=== PATIENT | female | born 1970 | race Hispanic/Latino ===

== ENCOUNTER 2019-04-30 12:45 | Inpatient (IN) | payer OTHER ==
[~2019-04-30] VITALS: Ht 157.5 cm; Wt 51.6 kg
[2019-04-30 13:39] LABS: BASOPHILS % (AUTO) 0.7 % (0.0-5.0); EOSINOPHILS % (AUTO) 2.1 % (0.0-8.0); HEMATOCRIT 24.8 % (36-48); LYMPHOCYTES % (AUTO) 10.6 % (21.0-51.0); MEAN CORPUSCULAR HGB CONC 31.9 g/dL (32.0-36.0); MEAN CORPUSCULAR VOLUME 94.3 fL (79-99); MONOCYTES % (AUTO) 11.7 % (3.0-13.0); NEUTROPHILS % (AUTO) 74.2 % (40.0-77.0); PLATELET COUNT (AUTO) 102 K/uL (130-400); RED BLOOD CELL COUNT(AUTO) 2.63 MIL/uL (4.00-5.50); RED CELL DISTRIBUTION WIDTH 15.5 % (11.0-15.5); WHITE BLOOD COUNT (AUTO) 4.3 K/uL (4.8-10.8)
[2019-04-30 13:49] LABS: PROTHROMBIN TIME 10.5 SEC (9.6-11.6)
[2019-04-30 13:59] LABS: ALBUMIN 3.3 g/dL (3.5-5.0); BILIRUBIN,DIRECT 0.1 mg/dL (0.0-0.3); BILIRUBIN,TOTAL 0.5 mg/dL (0.2-1.0); TOTAL PROTEIN, SERUM 7.3 g/dL (6.0-8.3)
[2019-04-30 14:01] LABS: CREATININE 17.4 mg/dL (0.5-1.5); POTASSIUM 8.1 mmol/L (3.5-5.1)
[2019-04-30] MEDS ORDERED: ALBUTEROL SULFATE 0.083% 2.5 MG/3 ML INH IH ONE (14:33)
[2019-04-30] MEDS ORDERED: CALCIUM GLUCONATE 1 GM/10 ML VIAL IV ONE (14:59)
[2019-04-30] MEDS ORDERED: INSULIN HUMULIN R 100 UNIT/ML 3ML ONE (15:00)
[2019-04-30] MEDS ORDERED: SODIUM BICARB 50MEQ 50ML VIAL ONE (15:00)
[2019-04-30] MEDS ORDERED: SODIUM CHLORIDE 0.9% 50 ML IV ONE (15:01)
[2019-04-30] MEDS ORDERED: HYDRALAZINE HCL 20 MG/ML VIAL IV PRN (15:15)
[2019-04-30] MEDS ORDERED: ACETAMINOPHEN 325 MG TAB PO PRN ×2 (15:15→18:00)
[2019-04-30] MEDS ORDERED: NITROGLYCERIN 0.4 MG SL TAB SL PRN (18:00)
[2019-04-30] MEDS ORDERED: HEPARIN SODIUM 5000UNIT/ML 1ML VIAL IJ PRN (18:00)
[2019-04-30] MEDS ORDERED: 0.9% SODIUM CHLORIDE 1000 ML IV BAG IV PRN (18:00)
[2019-04-30] MEDS ORDERED: SODIUM CHLORIDE 0.9% 1000ML 1,000 ML IV PRN (18:00)
[2019-04-30] MEDS ORDERED: HYDR50 PO (18:52)
[2019-04-30] MEDS ORDERED: AMLO10TA7 PO (18:52)
[2019-04-30] MEDS ORDERED: METO25 PO (18:52)
[2019-04-30] MEDS ORDERED: PRED5DRO17 OU (18:52)
[2019-04-30 18:53] LABS: HEMOGLOBIN A1C 6.3 % (4.0-6.0)
[2019-04-30 19:20] VITALS: BP 168/75
[2019-04-30 19:40] LABS: ALBUMIN 3.2 g/dL (3.5-5.0)
--- NOTE | 2019-04-30 20:27 | NUR ---
POST-DIALYSIS PT COMPLETED DIALYSIS AT THIS TIME TO LEFT UPPER ARM SITE, REPORT RECEIVED FROM BRAVO GRANTS DIRECTOR, 2.5L WERE REMOVED. LEFT UPPER ARM SITE CLEAN, 4X4 GAUZE DRY AND INTACT. PT IS AWAKE, BUT DROWSY. PT C/O FEELING DIZZY AND NAUSEOUS, PT THREW UP ABOUT 20ML LIGHT BROWNISH EMESIS. BP OBTAINED 136/87 HR 94 RESPIRATIONS 21, BLOOD GLUCOSE 85. PT STATES NOT FEELING HUNGRY AT THIS TIME. WILL CONTINUE TO MONITOR PT. Addendum: 04/30/19 at 2133 by ZA NAPIER RN Amended: Links added.
[2019-04-30 20:47] LABS: % IRON SATURATION 97.7 % (22-44)
[2019-04-30] MEDS: FAMOTIDINE 20MG TAB 20 MG TAB PO SCH (21:00)
[2019-04-30 21:19] VITALS: BP 136/87
[2019-04-30 23:14] VITALS: BP 167/80
[2019-05-01 04:06] VITALS: BP 166/82
[2019-05-01 05:55] LABS: BASOPHILS % (AUTO) 0.5 % (0.0-5.0); EOSINOPHILS % (AUTO) 1.8 % (0.0-8.0); HEMATOCRIT 25.2 % (36-48); LYMPHOCYTES % (AUTO) 9.3 % (21.0-51.0); MEAN CORPUSCULAR HGB CONC 32.1 g/dL (32.0-36.0); MEAN CORPUSCULAR VOLUME 93.3 fL (79-99); MONOCYTES % (AUTO) 10.8 % (3.0-13.0); NEUTROPHILS % (AUTO) 77.1 % (40.0-77.0); PLATELET COUNT (AUTO) 98 K/uL (130-400); RED CELL DISTRIBUTION WIDTH 15.5 % (11.0-15.5)
[2019-05-01 06:12] LABS: POTASSIUM 4.8 mmol/L (3.5-5.1)
[2019-05-01 06:13] LABS: CREATININE 8.6 mg/dL (0.5-1.5)
[2019-05-01 08:00] VITALS: BP 195/99
[2019-05-01] MEDS ORDERED: SODIUM CHLORIDE 0.9% 1000ML 1,000 ML IV PRN (08:45)
[2019-05-01] MEDS ORDERED: 0.9% SODIUM CHLORIDE 1000 ML IV BAG IV PRN (08:45)
[2019-05-01] MEDS ORDERED: NITROGLYCERIN 0.4 MG SL TAB SL PRN (08:45)
[2019-05-01] MEDS ORDERED: ACETAMINOPHEN 325 MG TAB PO PRN (08:45)
[2019-05-01] MEDS ORDERED: LIDOCAINE HCL-MPF 1% 2ML VIAL IJ PRN (08:45)
[2019-05-01] MEDS ORDERED: HEPARIN SODIUM 5000UNIT/ML 1ML VIAL IJ PRN ×2 (08:45)
[2019-05-01] MEDS ORDERED: PHARMACY COMMUNICATION MISC SCH (09:00)
[2019-05-01 12:00] VITALS: BP 189/84
[2019-05-01] MEDS ORDERED: EPOETIN ALFA 10,000 UNIT/ML VIAL SQ SCH (13:30)
[2019-05-01] MEDS: FAMOTIDINE 20MG TAB 20 MG TAB PO SCH (14:54)
--- NOTE | 2019-05-01 16:00 | NUR ---
D/C PLAN CM spoke to pt regarding d/c planning. Pt is ind. with ADL's. States son assists with transportation as needed. States she is in process of reapplying for benefits that cover HD. Currently she is reporting to emergency room for HD tx. CM provided community resources packet. Pt remains high risk for readmissions due to uninsured status. Plan to home. CM to f/u. Addendum: 05/01/19 at 1915 by JAVIER KWAN CM Amended: Links added.
[2019-05-01 17:15] VITALS: BP 164/76
== END 2019-05-01 19:17 | disposition home or self-care (01) | DRG 682 ==
LOC: EDH 12:45 → EDHIP 12:46 → OBSVTOIN 12:46 → UNDOADMOB 15:10 → EDHIP 15:10 → 4CH 17:26
PROVIDERS: ADMIT Internal Medicine; ATTEND Internal Medicine
PROC: 5A1D70Z Performance of Urinary Filtration, Intermittent, Less than 6 Hours Per Day (ICD-10-PCS; principal; 2019-04-30)
PROC: 5A1D70Z Performance of Urinary Filtration, Intermittent, Less than 6 Hours Per Day (ICD-10-PCS; 2019-05-01)
DX: I12.0 Hypertensive chronic kidney disease with stage 5 chronic kidney disease or end stage renal disease (principal); N18.6 End stage renal disease; D63.8 Anemia in other chronic diseases classified elsewhere; E87.5 Hyperkalemia; E11.22 Type 2 diabetes mellitus with diabetic chronic kidney disease; W18.30XA Fall on same level, unspecified, initial encounter; Y92.009 Unspecified place in unspecified non-institutional (private) residence as the place of occurrence of the external cause; Z99.2 Dependence on renal dialysis; Y93.89 Activity, other specified; Y99.8 Other external cause status
CPT/HCPCS: 36415; 71045; 80048; 80061; 80076; 82040; 82550; 82728; 82948; 83036; 83540; 83550; 84484; 85025; 85610; 85730; 86701; 86704; 86706; 87340; 87390; 87520; 90935; 93005; 94640; 99291; G0378; J0610; J0885; J1644; J1815; J3490

== ENCOUNTER 2019-05-08 09:58 | Inpatient (IN) | payer OTHER ==
[~2019-05-08] VITALS: Ht 157.5 cm; Wt 64.3 kg
[~2019-05-08 09:58] MED LIST: AMLO10TA7 PO; HYDR50 PO; METO25 PO; PRED5DRO17 OU
[2019-05-08] MEDS ORDERED: ASPIRIN 81MG TAB.CHEW ONE (10:14)
[2019-05-08 10:27] LABS: BASOPHILS % (AUTO) 0.3 % (0.0-5.0); EOSINOPHILS % (AUTO) 2.9 % (0.0-8.0); HEMATOCRIT 22.1 % (36-48); LYMPHOCYTES % (AUTO) 7.6 % (21.0-51.0); MEAN CORPUSCULAR HEMOGLOBIN 29.9 pg (27.0-33.0); MEAN CORPUSCULAR HGB CONC 31.7 g/dL (32.0-36.0); MEAN CORPUSCULAR VOLUME 94.4 fL (79-99); MONOCYTES % (AUTO) 8.6 % (3.0-13.0); PLATELET COUNT (AUTO) 139 K/uL (130-400); RED BLOOD CELL COUNT(AUTO) 2.34 MIL/uL (4.00-5.50); RED CELL DISTRIBUTION WIDTH 15.3 % (11.0-15.5); WHITE BLOOD COUNT (AUTO) 6.3 K/uL (4.8-10.8)
[2019-05-08 10:32] LABS: INR 1.06 (0.85-1.15); PARTIAL THROMBOPLASTIN TIME 34.8 SEC (26.3-35.5); PROTHROMBIN TIME 11.1 SEC (9.6-11.6)
[2019-05-08 10:35] LABS: BILIRUBIN,TOTAL 0.5 mg/dL (0.2-1.0); POTASSIUM 5.8 mmol/L (3.5-5.1); TOTAL PROTEIN, SERUM 7.1 g/dL (6.0-8.3)
[2019-05-08 10:46] LABS: CREATININE 15.4 mg/dL (0.5-1.5)
[2019-05-08] MEDS ORDERED: ONDANSETRON HCL 4 MG/2 ML VIAL IV PRN (13:00)
[2019-05-08] MEDS ORDERED: MORPHINE SULFATE 2 MG/ML 1ML SYG IV PRN (13:00)
[2019-05-08] MEDS ORDERED: HYDRALAZINE HCL 20 MG/ML VIAL IV PRN (13:00)
[2019-05-08] MEDS ORDERED: ACETAMINOPHEN 325 MG TAB PO PRN ×2 (13:00)
[2019-05-08] MEDS ORDERED: SODIUM CHLORIDE 0.9% 1000ML 1,000 ML IV ONE (13:43)
[2019-05-08] MEDS ORDERED: ACETAMINOPHEN 325 MG TAB ONE (14:26)
--- NOTE | 2019-05-08 17:30 | NUR ---
low HH spoke with salad maker regarding low HH. stated that the patient is to NOT have a blood transfusion unless it is with HD. explained that HD was done earlier today in the emergency room prior to arrival on floor. stated do not transfuse blood product until Friday, day of scheduled HD.
[2019-05-08 17:33] VITALS: BP 179/72
[2019-05-08 19:16] VITALS: BP 159/73
[2019-05-08] MEDS: METOPROLOL TARTRATE 25 MG TAB PO SCH (20:38)
[2019-05-08 23:22] VITALS: BP 165/67
[2019-05-09 02:08] LABS: BASOPHILS % (AUTO) 0.3 % (0.0-5.0); EOSINOPHILS % (AUTO) 1.8 % (0.0-8.0); HEMATOCRIT 22.4 % (36-48); LYMPHOCYTES % (AUTO) 3.9 % (21.0-51.0); MEAN CORPUSCULAR HEMOGLOBIN 29.9 pg (27.0-33.0); MEAN CORPUSCULAR HGB CONC 32.1 g/dL (32.0-36.0); MEAN CORPUSCULAR VOLUME 92.9 fL (79-99); MONOCYTES % (AUTO) 6.8 % (3.0-13.0); NEUTROPHILS % (AUTO) 86.7 % (40.0-77.0); NUCLEATED RED BLOOD CELLS 0.3 % (0.0-0.19); PLATELET COUNT (AUTO) 143 K/uL (130-400); RED BLOOD CELL COUNT(AUTO) 2.41 MIL/uL (4.00-5.50); RED CELL DISTRIBUTION WIDTH 15.3 % (11.0-15.5); WHITE BLOOD COUNT (AUTO) 6.2 K/uL (4.8-10.8)
[2019-05-09 02:31] LABS: ALBUMIN 2.7 g/dL (3.5-5.0); BILIRUBIN,TOTAL 0.5 mg/dL (0.2-1.0); POTASSIUM 4.2 mmol/L (3.5-5.1); TOTAL PROTEIN, SERUM 6.9 g/dL (6.0-8.3)
[2019-05-09 02:35] LABS: CREATININE 7.9 mg/dL (0.5-1.5)
[2019-05-09 03:53] VITALS: BP 187/90
--- NOTE | 2019-05-09 04:07 | NUR ---
b/p b/p 187/90, hydralazine 10 mg ivp given
--- NOTE | 2019-05-09 05:00 | NUR ---
med effect b/p 155/78 , no sob, no c/o pain at this time
[2019-05-09 08:06] VITALS: BP 163/65
[2019-05-09] MEDS: METOPROLOL TARTRATE 25 MG TAB PO SCH ×2 (08:53→19:40)
[2019-05-09] MEDS: AMLODIPINE BESYLATE 5 MG TAB PO SCH (08:53)
[2019-05-09] MEDS: FAMOTIDINE/PF 20 MG/2 ML VIAL IV SCH (09:00)
[2019-05-09 11:19] VITALS: BP 159/68
[2019-05-09] MEDS ORDERED: COMPOUND IV MISC 1 EACH IVSOLN MISC PRN (12:15)
[2019-05-09] MEDS ORDERED: EPOETIN ALFA 10,000 UNIT/ML VIAL SQ SCH (12:15)
--- NOTE | 2019-05-09 13:12 | NUR ---
INITIAL Patient lives with spouse. Emergency contacts are sons, Francisco Wu, [phone] and Roque Scruggs, [phone]. Patient has no home services or DME. She is able to complete ADL's independently but does not drive. PCP is Dr. Mcgill. Pharmacy is [facility] located on [address] [facility] [address] in [place]. DCP is home Patient is on dialysis and states she used to go [facility] have [facility]. Patient states she stopped going because her Legal Resident card and she has not renewed it because she does not have the money to do so at this time. Patient reports that she has been coming to hospital ER to have dialysis done. Patient states once her daughter receives her income tax, patient will attempt to renew her legal residency card. Patient was provided with community resources for post hospitalization follow up. Patient was also provided with Good RX card for prescriptions and educated on [facility] $4 medication program and [facility] $5 medication program. Patient is being assisted by [employer] for financial matters. Addendum: 05/09/19 at 1317 by ROSY CRAMER Amended: Links added.
[2019-05-09 16:18] VITALS: BP 149/61
[2019-05-09 19:44] VITALS: BP 143/66
[2019-05-09 22:54] VITALS: BP 152/65
[2019-05-10 03:05] VITALS: BP 151/68
[2019-05-10 07:58] VITALS: BP 112/39
[2019-05-10 08:42] LABS: HEMATOCRIT 21.5 % (36-48); MEAN CORPUSCULAR HEMOGLOBIN 29.6 pg (27.0-33.0); MEAN CORPUSCULAR HGB CONC 31.6 g/dL (32.0-36.0); MEAN CORPUSCULAR VOLUME 93.5 fL (79-99); PLATELET COUNT (AUTO) 141 K/uL (130-400); RED CELL DISTRIBUTION WIDTH 15.3 % (11.0-15.5)
[2019-05-10 08:54] LABS: POTASSIUM 4.5 mmol/L (3.5-5.1)
[2019-05-10] MEDS: METOPROLOL TARTRATE 25 MG TAB PO SCH (09:00)
[2019-05-10] MEDS: AMLODIPINE BESYLATE 5 MG TAB PO SCH (09:00)
[2019-05-10] MEDS: FAMOTIDINE/PF 20 MG/2 ML VIAL IV SCH (09:00)
[2019-05-10] MEDS ORDERED: IRON SUCROSE COMPLEX 100 MG in SODIUM CHLORIDE 0.9% 50 ML IV SCH (09:00)
[2019-05-10 11:42] VITALS: BP 154/70
[2019-05-10] MEDS ORDERED: SODIUM CHLORIDE 0.9% 500ML 500 ML IV ONE (12:40)
[2019-05-10] MEDS ORDERED: ACETAMINOPHEN 325 MG TAB PO PRN (12:45)
[2019-05-10] MEDS ORDERED: SODIUM CHLORIDE 0.9% 1000ML 1,000 ML IV PRN (12:45)
[2019-05-10] MEDS ORDERED: NITROGLYCERIN 0.4 MG SL TAB SL PRN (12:45)
[2019-05-10] MEDS ORDERED: 0.9% SODIUM CHLORIDE 1000 ML IV BAG IV PRN (12:45)
[2019-05-10 15:22] VITALS: BP 160/66
[2019-05-10 16:00] VITALS: BP 191/78
--- NOTE | 2019-05-10 17:51 | NUR ---
DISCHARGE PATIENT GIVEN DISCHARGE INSTRUCTIONS VIA TEACH BACK. 22G PIV TO RH DISCONTINUED, TIP INTACT. PATIENT RECEIVED 1 UNIT OF PRBC'S DURING DIALYSIS. PATIENT TO FOLLOW UP WITH DR. CROWLEY IN 1 WEEK. PATIENT INSTRUCTED TO SEEK EMERGENCY MEDICAL SERVICE FOR HEMODIALYSIS TREATMENT. PATIENT STABLE AT THIS TIME. PATIENT WHEELED TO LOBBY BY JUSTA COOPER.
== END 2019-05-10 17:40 | disposition home or self-care (01) | DRG 640 ==
LOC: EDH 09:58 → OBSVTOIN 09:59 → EDHIP 09:59 → 4CH 17:11
PROVIDERS: ADMIT Family Medicine; ATTEND Family Medicine
PROC: 5A1D70Z Performance of Urinary Filtration, Intermittent, Less than 6 Hours Per Day (ICD-10-PCS; principal; 2019-05-08)
PROC: 5A1D70Z Performance of Urinary Filtration, Intermittent, Less than 6 Hours Per Day (ICD-10-PCS; 2019-05-10)
PROC: 30233N1 Transfusion of Nonautologous Red Blood Cells into Peripheral Vein, Percutaneous Approach (ICD-10-PCS; 2019-05-10)
DX: E87.70 Fluid overload, unspecified (principal); N18.6 End stage renal disease; I12.0 Hypertensive chronic kidney disease with stage 5 chronic kidney disease or end stage renal disease; E11.22 Type 2 diabetes mellitus with diabetic chronic kidney disease; M94.0 Chondrocostal junction syndrome [Tietze]; D63.8 Anemia in other chronic diseases classified elsewhere; Z99.2 Dependence on renal dialysis; E87.5 Hyperkalemia
CPT/HCPCS: 36415; 36430; 71045; 80048; 80053; 82550; 82948; 84484; 85025; 85027; 85610; 85730; 86706; 86717; 86850; 86900; 86901; 86922; 87340; 87350; 87804; 90935; 93005; 99291; G0378; J0360; J0885; J1756; J3490; J7030; J7040; P9016

== ENCOUNTER 2019-05-14 17:32 | Inpatient (IN) | payer OTHER ==
[~2019-05-14] VITALS: Ht 157.5 cm; Wt 56.6 kg
[~2019-05-14 17:32] MED LIST changes: +ETOMIDATE 2 MG/ML 10 ML VIAL IVP ONE; -HYDR50 PO; -PRED5DRO17 OU; +ROCURONIUM BROMIDE 10MG/1ML 5ML VL IV ONE
[2019-05-14 18:10] LABS: BASOPHILS % (AUTO) 0.1 % (0.0-5.0); EOSINOPHILS % (AUTO) 4.4 % (0.0-8.0); HEMATOCRIT 23.7 % (36-48); LYMPHOCYTES % (AUTO) 9.5 % (21.0-51.0); MEAN CORPUSCULAR HEMOGLOBIN 29.3 pg (27.0-33.0); MEAN CORPUSCULAR HGB CONC 31.6 g/dL (32.0-36.0); MEAN CORPUSCULAR VOLUME 92.6 fL (79-99); MONOCYTES % (AUTO) 9.5 % (3.0-13.0); NEUTROPHILS % (AUTO) 76.1 % (40.0-77.0); NUCLEATED RED BLOOD CELLS 0.3 % (0.0-0.19); PLATELET COUNT (AUTO) 131 K/uL (130-400); RED BLOOD CELL COUNT(AUTO) 2.56 MIL/uL (4.00-5.50); RED CELL DISTRIBUTION WIDTH 15.7 % (11.0-15.5); WHITE BLOOD COUNT (AUTO) 6.8 K/uL (4.8-10.8)
[2019-05-14 18:27] LABS: INR 1.04 (0.85-1.15); PARTIAL THROMBOPLASTIN TIME 33.3 SEC (26.3-35.5); PROTHROMBIN TIME 10.9 SEC (9.6-11.6)
[2019-05-14] MEDS ORDERED: ZOSYN 3.375GM+NS 50ML 50 ML IV ONE (18:34)
[2019-05-14 18:40] LABS: ALBUMIN 2.7 g/dL (3.5-5.0); BILIRUBIN,TOTAL 0.5 mg/dL (0.2-1.0); POTASSIUM 5.1 mmol/L (3.5-5.1); TOTAL PROTEIN, SERUM 7.2 g/dL (6.0-8.3)
[2019-05-14] MEDS ORDERED: IPRATROPIUM/ALBUTEROL SULFATE 3 ML SOLUTION IH ONE (18:40)
[2019-05-14] MEDS ORDERED: VANCOMYCIN 1GM+NS 250ML 250 ML IV ONE (19:53)
[2019-05-14] MEDS: INSULIN HUMULIN R 100 UNIT/ML 3ML SQ SCH (22:15)
[2019-05-14] MEDS ORDERED: GLUCAGON 1MG KIT 1 MG ML IM PRN (22:15)
[2019-05-14] MEDS ORDERED: ACETAMINOPHEN 325 MG TAB PO PRN ×2 (22:45)
[2019-05-14] MEDS ORDERED: DiphenhydrAMINE HCL 50 MG/ML VIAL IV PRN (22:45)
[2019-05-14] MEDS ORDERED: NITROGLYCERIN 0.4 MG SL TAB SL PRN (22:45)
[2019-05-14 22:48] VITALS: BP 157/60
[2019-05-14] MEDS: CEFTRIAXONE SODIUM 1 GM IV SCH (23:14)
[2019-05-14] MEDS: ACETAMINOPHEN-CODEINE 300/30MG TAB PO PRN (23:14)
[2019-05-14] MEDS: AZITHROMYCIN 500MG+NS 250ML 250 ML IV SCH (23:14)
[2019-05-14] MEDS: ONDANSETRON HCL 4 MG/2 ML VIAL IV PRN (23:22)
[2019-05-14 23:24] LABS: MAGNESIUM 2.2 mg/dL (1.80-2.40); PHOSPHORUS 9.7 mg/dL (2.5-4.9)
[2019-05-15] MEDS ORDERED: IPRATROPIUM/ALBUTEROL SULFATE 3 ML SOLUTION IH ONE (01:24)
[2019-05-15] MEDS ORDERED: SODIUM CHLORIDE 3% FOR INHALATION 4 ML/AMP VIAL.NEB IH ONE ×2 (01:33→06:30)
[2019-05-15 04:00] VITALS: BP 158/58
[2019-05-15] MEDS: INSULIN HUMULIN R 100 UNIT/ML 3ML SQ SCH ×4 (05:48→20:32)
[2019-05-15] MEDS: ACETAMINOPHEN-CODEINE 300/30MG TAB PO PRN ×2 (05:54→20:01)
[2019-05-15 05:59] LABS: HEMATOCRIT 23.8 % (36-48); MEAN CORPUSCULAR HEMOGLOBIN 29.4 pg (27.0-33.0); MEAN CORPUSCULAR HGB CONC 31.5 g/dL (32.0-36.0); MEAN CORPUSCULAR VOLUME 93.3 fL (79-99); NUCLEATED RED BLOOD CELLS 0.3 % (0.0-0.19); PLATELET COUNT (AUTO) 133 K/uL (130-400); RED BLOOD CELL COUNT(AUTO) 2.55 MIL/uL (4.00-5.50); RED CELL DISTRIBUTION WIDTH 15.6 % (11.0-15.5); WHITE BLOOD COUNT (AUTO) 7.3 K/uL (4.8-10.8)
[2019-05-15 06:21] LABS: ALBUMIN 2.6 g/dL (3.5-5.0); BILIRUBIN,TOTAL 0.5 mg/dL (0.2-1.0); MAGNESIUM 2.2 mg/dL (1.80-2.40); PHOSPHORUS 10.3 mg/dL (2.5-4.9); POTASSIUM 5.4 mmol/L (3.5-5.1); TOTAL PROTEIN, SERUM 7.2 g/dL (6.0-8.3)
--- NOTE | 2019-05-15 06:24 | NUR ---
Nursing Notes-Dialysis Spoke with dialysis nurse on-call. Nancy is aware pt to be dialyzed today
[2019-05-15 06:27] LABS: CREATININE 11.4 mg/dL (0.5-1.5)
[2019-05-15] MEDS: IPRATROPIUM/ALBUTEROL SULFATE 3 ML SOLUTION IH SCH ×5 (07:15→21:38)
[2019-05-15 08:00] VITALS: BP 141/65
[2019-05-15 10:33] LABS: EOSINOPHILS % (MANUAL) 2 % (1-6); LYMPHOCYTES % (MANUAL) 14 % (22-44); MAN.DIFF COMMENT-IMPRESSION MANUAL DIFFERENTIAL; MONOCYTES % (MANUAL) 3 % (2-9); PLATELET MORPHOLOGY COMMENT ADEQUATE; SEGMENTED NEUTROPHILS % 81 % (40-70)
[2019-05-15 12:00] VITALS: BP 162/73
--- NOTE | 2019-05-15 12:08 | NUR ---
notified dr. whiting that the heart of patient is sinus hitesh 30s to 40s and not sustaining.
[2019-05-15 16:00] VITALS: BP 151/67
[2019-05-15] MEDS: FAMOTIDINE 20MG TAB 20 MG TAB PO SCH (16:35)
[2019-05-15] MEDS: HEPARIN SODIUM 5000UNIT/ML 1ML VIAL SQ SCH ×2 (16:36→19:56)
--- NOTE | 2019-05-15 17:15 | NUR ---
INITIAL: Met with pt this afternoon to discuss dcp. Pt mentions that she lives w her spouse. Prior to admission she was independent w ambulation and ADLs. She does not own any DME or receive services. Per pt he son provides transportation where needed. Pt mentions that she feels safe and comfortable to return home at ut. She mentions that she does not get HD as an outpatient and only receives when comes to ER. CM to continue to follow and wait for Md recommendations. Addendum: 05/15/19 at 1717 by DIGNA VARGAS CM Amended: Links added. Addendum: 05/15/19 at 1720 by DIGNA VARGAS low income packet provided to pt.
[2019-05-15 20:00] VITALS: BP 159/85
[2019-05-15] MEDS: AZITHROMYCIN 500MG+NS 250ML 250 ML IV SCH (20:58)
[2019-05-15] MEDS: CEFTRIAXONE SODIUM 1 GM IV SCH (20:58)
[2019-05-16] VITALS: BP 152/57
[2019-05-16] MEDS: IPRATROPIUM/ALBUTEROL SULFATE 3 ML SOLUTION IH SCH ×6 (01:22→21:07)
[2019-05-16] MEDS: ACETAMINOPHEN-CODEINE 300/30MG TAB PO PRN ×2 (02:12→18:15)
[2019-05-16] MEDS ORDERED: SODIUM CHLORIDE 3% FOR INHALATION 4 ML/AMP VIAL.NEB IH ONE (02:18)
[2019-05-16] MEDS: DEXTROSE 50%-WATER 50 ML DISP.SYRIN IV PRN (03:40)
[2019-05-16 04:00] VITALS: BP 132/55
--- NOTE | 2019-05-16 04:14 | NUR ---
Nursing Note-Blood sugar Blood sugar dropped to 25. Dextrose and food/drink given to pt. Lab was called and stated they would do the check with the morning labs. upon recheck BS is 143
[2019-05-16 04:41] LABS: BASOPHILS % (AUTO) 0.2 % (0.0-5.0); EOSINOPHILS % (AUTO) 2.1 % (0.0-8.0); HEMATOCRIT 23.7 % (36-48); LYMPHOCYTES % (AUTO) 5.8 % (21.0-51.0); MEAN CORPUSCULAR HEMOGLOBIN 29.4 pg (27.0-33.0); MEAN CORPUSCULAR HGB CONC 31.2 g/dL (32.0-36.0); MONOCYTES % (AUTO) 10.5 % (3.0-13.0); NEUTROPHILS % (AUTO) 80.8 % (40.0-77.0); PLATELET COUNT (AUTO) 140 K/uL (130-400); RED BLOOD CELL COUNT(AUTO) 2.52 MIL/uL (4.00-5.50); RED CELL DISTRIBUTION WIDTH 15.6 % (11.0-15.5); WHITE BLOOD COUNT (AUTO) 8.1 K/uL (4.8-10.8)
[2019-05-16 04:49] LABS: CREATININE 6.4 mg/dL (0.5-1.5); MAGNESIUM 2.1 mg/dL (1.80-2.40)
[2019-05-16] MEDS: INSULIN HUMULIN R 100 UNIT/ML 3ML SQ SCH ×4 (06:07→21:00)
[2019-05-16 08:00] VITALS: BP 142/65
[2019-05-16] MEDS ORDERED: VANCOMYCIN PROTOCOL PER PHARMACY IV SCH (09:00)
[2019-05-16] MEDS: ONDANSETRON HCL 4 MG/2 ML VIAL IV PRN ×2 (09:23→18:08)
[2019-05-16] MEDS: HEPARIN SODIUM 5000UNIT/ML 1ML VIAL SQ SCH ×3 (09:25→21:11)
[2019-05-16] MEDS: FAMOTIDINE 20MG TAB 20 MG TAB PO SCH (09:25)
[2019-05-16 12:00] VITALS: BP 145/72
[2019-05-16] MEDS: ZOSYN 3.375GM+NS 50ML 50 ML IV SCH ×2 (15:25→20:51)
[2019-05-16 16:00] VITALS: BP 149/56
[2019-05-16 20:00] VITALS: BP 146/64
[2019-05-16] MEDS ORDERED: VANCOMYCIN 500MG+NS 100ML 100 ML IV SCH (21:00)
[2019-05-16] MEDS: DOXYCYCLINE HYCLATE 100 MG TABLET PO SCH (21:10)
[2019-05-16] MEDS: AZITHROMYCIN 500MG+NS 250ML 250 ML IV SCH (22:17)
[2019-05-17] VITALS (40 sets, daily range): BP systolic 116–217; BP diastolic 43–89
[2019-05-17] MEDS: IPRATROPIUM/ALBUTEROL SULFATE 3 ML SOLUTION IH SCH ×6 (01:16→22:17)
[2019-05-17] MEDS: ONDANSETRON HCL 4 MG/2 ML VIAL IV PRN ×2 (02:34→07:06)
[2019-05-17] MEDS: INSULIN HUMULIN R 100 UNIT/ML 3ML SQ SCH ×4 (05:43→21:00)
[2019-05-17 07:32] LABS: BASOPHILS % (AUTO) 0.3 % (0.0-5.0); EOSINOPHILS % (AUTO) 4.8 % (0.0-8.0); HEMATOCRIT 23.8 % (36-48); LYMPHOCYTES % (AUTO) 6.5 % (21.0-51.0); MEAN CORPUSCULAR HEMOGLOBIN 29.1 pg (27.0-33.0); MEAN CORPUSCULAR HGB CONC 30.7 g/dL (32.0-36.0); MEAN CORPUSCULAR VOLUME 94.8 fL (79-99); MONOCYTES % (AUTO) 7.4 % (3.0-13.0); NEUTROPHILS % (AUTO) 80.3 % (40.0-77.0); PLATELET COUNT (AUTO) 150 K/uL (130-400); RED BLOOD CELL COUNT(AUTO) 2.51 MIL/uL (4.00-5.50); RED CELL DISTRIBUTION WIDTH 15.7 % (11.0-15.5); WHITE BLOOD COUNT (AUTO) 7.1 K/uL (4.8-10.8)
[2019-05-17 07:34] LABS: CREATININE 7.7 mg/dL (0.5-1.5)
--- NOTE | 2019-05-17 08:00 | NUR ---
TO O.R. VIA BED PORTABLE MONITORING, WITH Christa HERNANDEZ NURSES ALEJANDRO RESENDIZ, ANESTHESIOLOGIST, AND DR GODFRYE. SISTER, SON, AND FATHER STATED THEY WILL BE WAITING IN MAIN LOBBY. Addendum: 05/17/19 at 0810 by EILO DE DIOS RN RN DISREGARD NOTE; WRONG CHART
[2019-05-17] MEDS: FAMOTIDINE 20MG TAB 20 MG TAB PO SCH (09:00)
[2019-05-17] MEDS: DOXYCYCLINE HYCLATE 100 MG TABLET PO SCH ×2 (09:00→21:00)
--- NOTE | 2019-05-17 10:00 | NUR ---
TRANSFER TO [facility] Patient was transferred [facility] room # 218. Report was called to Weston Carlson RN at 0953. Patient had c/o nausea and subsequently went to restroom, while nurse was . Once there, a call Addendum: 05/18/19 at 2040 by NAIDA HAND RN RN Patient had c/o nausea and subsequently went to restroom, while nurse was getting AM medications and checking for nausea medications and antihypertensives. Once patient was in restroom, a natalie hitchcock was called and patient was found unresponsive in restroom. Patient had resuscitation work done and she was eventually intubated and transfered to higher level of care. Family was at bedside.
[2019-05-17] MEDS ORDERED: LABETALOL 20 MG/4 ML DISP.SYRIN IV ONE (10:20)
[2019-05-17] MEDS: HEPARIN SODIUM 5000UNIT/ML 1ML VIAL SQ SCH ×2 (11:20→21:17)
[2019-05-17] MEDS ORDERED: VANCOMYCIN 500MG+NS 100ML 100 ML IV SCH (12:00)
[2019-05-17 12:05] LABS: ABG BASE EXCESS 1.5 mmol/L (-2.0-3.0); ABG HCO3 27.3 mmol/L (21.0-28.0); ABG OXYGEN SATURATION 98.6 % (95.0-99.0); ABG PCO2 48 mmHg (32-45)
--- NOTE | 2019-05-17 14:40 | NUR ---
Ramin notified me patient has ST elevation on monitor patient had 12 lead ekg done at 1447 showing normal sinus rhythm
[2019-05-17] MEDS: ZOSYN 3.375GM+NS 50ML 50 ML IV SCH ×2 (14:52→21:18)
[2019-05-17 15:40] LABS: ABG BASE EXCESS 2.7 mmol/L (-2.0-3.0); ABG HCO3 27.9 mmol/L (21.0-28.0); ABG OXYGEN SATURATION 96.7 % (95.0-99.0); ABG PCO2 45 mmHg (32-45)
--- NOTE | 2019-05-17 18:57 | NUR ---
Placed patient back on AC mode due to RR BEING 9.5 on CPAP mode volume okay but RR to low placed he her on a back up rate to rest. Addendum: 05/17/19 at 1859 by SMOOTH COELLO RT Amended: Links added.
[2019-05-17] MEDS ORDERED: DEXMEDETOMIDINE HCL 400 MCG in SODIUM CHLORIDE 0.9% 100 ML IV SCH (19:00)
[2019-05-17] MEDS: FENTANYL CITRATE PF 50 MCG/1 ML 2ML VIAL IVP PRN ×2 (19:26→21:20)
[2019-05-17] MEDS ORDERED: SODIUM CHLORIDE 0.9% 250 ML IV ONE (21:26)
[2019-05-17] MEDS: DEXTROSE 50%-WATER 50 ML DISP.SYRIN IV PRN (22:23)
[2019-05-18] VITALS (73 sets, daily range): BP systolic 106–226; BP diastolic 48–91
[2019-05-18] MEDS ORDERED: PROPOFOL 1000 MG/100 ML 100 ML IV ONE (01:08)
[2019-05-18] MEDS ORDERED: FENTANYL CITRATE PF 0.05 MG/ML 1,000 MCG in SODIUM CHLORIDE 0.9% 100 ML IVPB SCH (01:15)
[2019-05-18] MEDS ORDERED: PROPOFOL 1000 MG/100 ML IV PRN (01:15)
[2019-05-18] MEDS: IPRATROPIUM/ALBUTEROL SULFATE 3 ML SOLUTION IH SCH ×6 (02:16→21:27)
[2019-05-18] MEDS ORDERED: PROPOFOL 1000 MG/100 ML 100 ML IV SCH (05:00)
[2019-05-18 05:49] LABS: MEAN CORPUSCULAR HEMOGLOBIN 29.4 pg (27.0-33.0); MEAN CORPUSCULAR HGB CONC 31.3 g/dL (32.0-36.0); MEAN CORPUSCULAR VOLUME 93.9 fL (79-99); PLATELET COUNT (AUTO) 153 K/uL (130-400); RED BLOOD CELL COUNT(AUTO) 2.45 MIL/uL (4.00-5.50); RED CELL DISTRIBUTION WIDTH 15.1 % (11.0-15.5); WHITE BLOOD COUNT (AUTO) 2.9 K/uL (4.8-10.8)
[2019-05-18 05:56] LABS: PHOSPHORUS 5.9 mg/dL (2.5-4.9); POTASSIUM 4.1 mmol/L (3.5-5.1)
[2019-05-18 06:11] LABS: BASOPHILS % (MANUAL) 3 % (0-2); EOSINOPHILS % (MANUAL) 9 % (1-6); LYMPHOCYTES % (MANUAL) 12 % (22-44); MAN.DIFF COMMENT-IMPRESSION MANUAL DIFFERENTIAL; MONOCYTES % (MANUAL) 7 % (2-9); PLATELET MORPHOLOGY COMMENT ADEQUATE; SEGMENTED NEUTROPHILS % 69 % (40-70)
[2019-05-18] MEDS: INSULIN HUMULIN R 100 UNIT/ML 3ML SQ SCH ×4 (06:34→21:00)
[2019-05-18] MEDS: DOXYCYCLINE HYCLATE 100 MG TABLET PO SCH ×2 (09:00→20:38)
[2019-05-18] MEDS: FAMOTIDINE 20MG TAB 20 MG TAB PO SCH (09:00)
[2019-05-18] MEDS: ZOSYN 3.375GM+NS 50ML 50 ML IV SCH ×2 (09:23→20:40)
[2019-05-18] MEDS: HEPARIN SODIUM 5000UNIT/ML 1ML VIAL SQ SCH ×2 (09:23→20:56)
--- NOTE | 2019-05-18 09:30 | NUR ---
SEDATION VACATION/WEANING PATIENT OFF SEDATION SINCE 0830 THIS MORNING AND PLACED ON CPAP MODE ON VENTILATOR 5/5 30% AT 0930; PATIENT TOLERATING WELL; PLAN IS TO POSSIBLY EXTUBATE AFTER HD TODAY
[2019-05-18] MEDS ORDERED: NICARDIPINE HCL 100 MG in DEXTROSE 5%-WATER 60 ML IV SCH (10:00)
[2019-05-18 14:22] LABS: ABG BASE EXCESS -1.5 mmol/L (-2.0-3.0); ABG HCO3 23.4 mmol/L (21.0-28.0); ABG OXYGEN SATURATION 97.8 % (95.0-99.0); ABG PCO2 40 mmHg (32-45)
--- NOTE | 2019-05-18 15:05 | NUR ---
PATIENT EXTUBATED RECENT ABG RESULTS READ TO DR GOMEZ VIA TELEPHONE. PATIENT EXTUBATED AT 1505 AND PLACED ON BIPAP. PATIENT RESTING COMFORTABLY IN BED WITH NO COMPLAINTS AT THIS TIME
--- NOTE | 2019-05-18 16:00 | NUR ---
PATIENT REFUSING TO EAT OR DRINK AT THIS TIME; STATES HER THROAT IS SOMEWHAT SORE AT THIS TIME AND PREFERS TO WAIT; BP WNL ON CARDENE DRIP AT 2.5 MG/HR. LABETALOL TO BE GIVEN TONIGHT AT 2100 ORDERED
[2019-05-18] MEDS ORDERED: LABETALOL HCL 200 MG TABLET PO SCH (21:00)
[2019-05-19] VITALS (36 sets, daily range): BP systolic 108–173; BP diastolic 44–104
[2019-05-19] MEDS: IPRATROPIUM/ALBUTEROL SULFATE 3 ML SOLUTION IH SCH ×6 (01:08→22:08)
[2019-05-19 05:36] LABS: HEMATOCRIT 25.2 % (36-48); MEAN CORPUSCULAR VOLUME 93.7 fL (79-99); PLATELET COUNT (AUTO) 189 K/uL (130-400); RED BLOOD CELL COUNT(AUTO) 2.69 MIL/uL (4.00-5.50); RED CELL DISTRIBUTION WIDTH 14.9 % (11.0-15.5); WHITE BLOOD COUNT (AUTO) 4.4 K/uL (4.8-10.8)
[2019-05-19 06:01] LABS: CREATININE 4.9 mg/dL (0.5-1.5); MAGNESIUM 2.2 mg/dL (1.80-2.40); PHOSPHORUS 6.2 mg/dL (2.5-4.9); POTASSIUM 4.4 mmol/L (3.5-5.1)
[2019-05-19] MEDS: INSULIN HUMULIN R 100 UNIT/ML 3ML SQ SCH ×4 (07:16→21:17)
[2019-05-19] MEDS: ZOSYN 3.375GM+NS 50ML 50 ML IV SCH ×2 (08:59→21:08)
[2019-05-19] MEDS ORDERED: LABETALOL HCL 200 MG TABLET PO SCH (09:00)
[2019-05-19] MEDS: DOXYCYCLINE HYCLATE 100 MG TABLET PO SCH ×2 (09:00→21:08)
[2019-05-19] MEDS: FAMOTIDINE 20MG TAB 20 MG TAB PO SCH (09:00)
[2019-05-19] MEDS: LABETALOL HCL 200 MG TABLET PO SCH ×2 (09:01→21:08)
[2019-05-19] MEDS: HEPARIN SODIUM 5000UNIT/ML 1ML VIAL SQ SCH ×2 (09:04→21:17)
[2019-05-19] MEDS: ONDANSETRON HCL 4 MG/2 ML VIAL IV PRN (11:19)
[2019-05-20] VITALS (7 sets, daily range): BP systolic 136–196; BP diastolic 63–79
[2019-05-20] MEDS: IPRATROPIUM/ALBUTEROL SULFATE 3 ML SOLUTION IH SCH ×6 (01:18→21:56)
[2019-05-20] MEDS: INSULIN HUMULIN R 100 UNIT/ML 3ML SQ SCH ×4 (07:30→23:24)
[2019-05-20] MEDS: ZOSYN 3.375GM+NS 50ML 50 ML IV SCH ×2 (08:19→20:10)
[2019-05-20] MEDS: LABETALOL HCL 200 MG TABLET PO SCH ×2 (08:19→20:15)
[2019-05-20] MEDS: FAMOTIDINE 20MG TAB 20 MG TAB PO SCH (08:19)
[2019-05-20] MEDS: DOXYCYCLINE HYCLATE 100 MG TABLET PO SCH ×2 (08:19→20:15)
[2019-05-20] MEDS: ACETAMINOPHEN-CODEINE 300/30MG TAB PO PRN ×2 (08:20→20:16)
[2019-05-20] MEDS: HEPARIN SODIUM 5000UNIT/ML 1ML VIAL SQ SCH ×2 (08:20→20:23)
--- NOTE | 2019-05-20 13:22 | NUR ---
DC PLAN SPOKE TO PATIENT AND FAMILY. PATIENT WANTED SISTER TO COME ACROSS AND NEEDED LETTER. EXPLAINED THAT WE DO NOT DO LETTERS I CAN REQUEST PATIENT ADVOCATE TO SEE IF SHE CAN DO LETTER. SAID THAT IS NO ITS OKAY. PATIENT AWARE THAT THEY NEED DIALYSIS AND WOULD BENEFIT FROM GOING BACK TO [place]. NOT WANTING TO AT THIS TIME. Addendum: 05/20/19 at 1328 by GRISEL AVENDANO RN CM Amended: Links added.
[2019-05-20] MEDS ORDERED: LABETALOL 20 MG/4 ML DISP.SYRIN IV PRN (14:45)
[2019-05-20] MEDS ORDERED: HYDRALAZINE HCL 20 MG/ML VIAL IV PRN (14:45)
--- NOTE | 2019-05-20 18:30 | NUR ---
PATIENT WAS SEEN BY DR. HUYNH, DR. ANN, AND DR. GOMEZ TODAY. BOTH MDS ARE AWARE OF THE PERSISTENT HYPERTENSION. DR. GOMEZ MADE CHANGES TO PATIENT'S BP MEDS. PRN ORDERS MADE WELL.
[2019-05-21] MEDS: IPRATROPIUM/ALBUTEROL SULFATE 3 ML SOLUTION IH SCH ×4 (01:22→13:57)
--- NOTE | 2019-05-21 03:00 | NUR ---
BP ELEVATED. 190S SYSTOLIC. PRN HYDRALAZINE GIVEN. 10MG ONLY. [id number].
[2019-05-21 04:15] VITALS: BP 195/77
[2019-05-21 04:44] LABS: HEMATOCRIT 24.3 % (36-48); MEAN CORPUSCULAR HEMOGLOBIN 28.6 pg (27.0-33.0); MEAN CORPUSCULAR HGB CONC 30.5 g/dL (32.0-36.0); MEAN CORPUSCULAR VOLUME 93.8 fL (79-99); PLATELET COUNT (AUTO) 212 K/uL (130-400); RED BLOOD CELL COUNT(AUTO) 2.59 MIL/uL (4.00-5.50); RED CELL DISTRIBUTION WIDTH 14.7 % (11.0-15.5)
[2019-05-21 04:59] LABS: CREATININE 5.9 mg/dL (0.5-1.5); POTASSIUM 4.4 mmol/L (3.5-5.1)
[2019-05-21] MEDS: INSULIN HUMULIN R 100 UNIT/ML 3ML SQ SCH (06:19)
[2019-05-21 07:46] VITALS: BP 195/75
--- NOTE | 2019-05-21 08:00 | NUR ---
ASSESSMENT ENCOUNTERED PT A&OX3, CALM COOPERATIVE AND DOES NOT APPEAR TO BE IN ANY DISTRESS NOR ANY NEURO DEFICITS, PT DENIES PAIN, SOB, NAUSEA. PT IS AMBULATORY, GAIT STEADY AND STRONG WITH STAND BY ASSIST. PT IS PENDING DIALYSIS. CALL LIGHT WITHIN REACH.
[2019-05-21] MEDS ORDERED: AMLODIPINE BESYLATE 5 MG TAB PO SCH (09:00)
[2019-05-21 11:15] VITALS: BP 108/59
--- NOTE | 2019-05-21 12:00 | NUR ---
DISCHARGE INSTRUCTIONS GIVEN,PIV REMOVED AND INTACT, DISCHARGED HOME TO FAMILY VEHICLE VIA WHEELCHAIR.
[2019-05-21 12:06] VITALS: BP 159/77
[2019-05-21] MEDS: FAMOTIDINE 20MG TAB 20 MG TAB PO SCH (12:06)
[2019-05-21] MEDS: LABETALOL HCL 200 MG TABLET PO SCH (12:06)
[2019-05-21] MEDS: DOXYCYCLINE HYCLATE 100 MG TABLET PO SCH (12:06)
[2019-05-21] MEDS ORDERED: DOXY100T2 PO (12:50)
[2019-05-21] MEDS ORDERED: AMLO5TAB4 PO (12:50)
[2019-05-21] MEDS ORDERED: LABE300T2 PO (12:50)
[2019-05-21] MEDS ORDERED: EPOETIN ALFA 10,000 UNIT/ML VIAL SQ SCH (13:00)
--- NOTE | 2019-05-21 14:35 | NUR ---
NUTRITION EDUCATION RD provided Renal Nutrition reference materials and handouts. RD to follow up for nutrition education reinforcement. Please notify RD as nutritional questions or concerns arise. Thank you. Addendum: 05/21/19 at [address] Amended: Links added.
--- NOTE | 2019-05-21 14:45 | NUR ---
REGINALD Screen - LOS x 7 Pt admitted for CAP, Fluid overload. Pt with ESRD, unable to obtain outpt Dialysis. RD to provided Renal nutrition education with reinforcement as needed. REGINALD to continue to monitor. Addendum: 05/21/19 at [address] RD Amended: Links added.
== END 2019-05-21 14:38 | disposition home or self-care (01) | DRG 208 ==
LOC: EDH 17:32 → EDHIP 17:33 → 3BH 22:48 → 2CH 05-17 10:04 → 2DH 05-19 21:44
PROVIDERS: ADMIT Internal Medicine; ATTEND Internal Medicine
PROC: 5A1D70Z Performance of Urinary Filtration, Intermittent, Less than 6 Hours Per Day (ICD-10-PCS; 2019-05-15)
PROC: 0BH17EZ Insertion of Endotracheal Airway into Trachea, Via Natural or Artificial Opening (ICD-10-PCS; principal; 2019-05-17)
PROC: 5A1935Z Respiratory Ventilation, Less than 24 Consecutive Hours (ICD-10-PCS; 2019-05-17)
PROC: 5A1D70Z Performance of Urinary Filtration, Intermittent, Less than 6 Hours Per Day (ICD-10-PCS; 2019-05-17)
PROC: 5A09357 Assistance with Respiratory Ventilation, Less than 24 Consecutive Hours, Continuous Positive Airway Pressure (ICD-10-PCS; 2019-05-18)
PROC: 5A1D70Z Performance of Urinary Filtration, Intermittent, Less than 6 Hours Per Day (ICD-10-PCS; 2019-05-18)
PROC: 5A1D70Z Performance of Urinary Filtration, Intermittent, Less than 6 Hours Per Day (ICD-10-PCS; 2019-05-19)
PROC: 5A1D70Z Performance of Urinary Filtration, Intermittent, Less than 6 Hours Per Day (ICD-10-PCS; 2019-05-21)
DX: J15.9 Unspecified bacterial pneumonia (principal); J96.21 Acute and chronic respiratory failure with hypoxia; N18.6 End stage renal disease; I46.9 Cardiac arrest, cause unspecified; I13.2 Hypertensive heart and chronic kidney disease with heart failure and with stage 5 chronic kidney disease, or end stage renal disease; I16.1 Hypertensive emergency; J98.11 Atelectasis; E87.70 Fluid overload, unspecified; Z99.2 Dependence on renal dialysis; E11.22 Type 2 diabetes mellitus with diabetic chronic kidney disease; R53.81 Other malaise; D63.1 Anemia in chronic kidney disease; Z91.15 Patient's noncompliance with renal dialysis; I50.9 Heart failure, unspecified; Z79.899 Other long term (current) drug therapy; Z98.891 History of uterine scar from previous surgery; Z83.3 Family history of diabetes mellitus; Z82.49 Family history of ischemic heart disease and other diseases of the circulatory system
CPT/HCPCS: 31500; 36415; 36600; 70450; 71045; 71250; 80048; 80053; 80202; 82150; 82550; 82803; 82948; 83605; 83690; 83735; 84100; 84145; 84484; 85025; 85027; 85610; 85730; 87040; 87071; 87205; 87486; 87581; 87633; 87641; 87798; 87804; 90935; 92950; 93005; 93306; 93356; 94002; 94003; 94150; 94640; 94660; 94664; G0378; J0360; J0456; J0696; J0885; J1644; J1815; J2405; J2543; J2704; J3010; J3370; J3490; J7030; J7060; J7070

== ENCOUNTER 2019-05-28 00:33 | Inpatient (IN) | payer OTHER ==
[~2019-05-28] VITALS: Ht 157.5 cm; Wt 55.3 kg
[~2019-05-28 00:33] MED LIST changes: -AMLO10TA7 PO; +AMLO5TAB4 PO; +DOXY100T2 PO; -ETOMIDATE 2 MG/ML 10 ML VIAL IVP ONE; +LABE300T2 PO; -METO25 PO; -ROCURONIUM BROMIDE 10MG/1ML 5ML VL IV ONE
[2019-05-28 01:31] LABS: BASOPHILS % (AUTO) 0.3 % (0.0-5.0); EOSINOPHILS % (AUTO) 1.6 % (0.0-8.0); LYMPHOCYTES % (AUTO) 3.6 % (21.0-51.0); MEAN CORPUSCULAR HEMOGLOBIN 29.4 pg (27.0-33.0); MEAN CORPUSCULAR HGB CONC 31.7 g/dL (32.0-36.0); MEAN CORPUSCULAR VOLUME 92.7 fL (79-99); MONOCYTES % (AUTO) 4.8 % (3.0-13.0); PLATELET COUNT (AUTO) 209 K/uL (130-400); RED BLOOD CELL COUNT(AUTO) 2.48 MIL/uL (4.00-5.50); RED CELL DISTRIBUTION WIDTH 15.3 % (11.0-15.5); WHITE BLOOD COUNT (AUTO) 11.6 K/uL (4.8-10.8)
[2019-05-28] MEDS ORDERED: NITROGLYCERIN 1GM/1 INCH PACKET TD ONE (02:11)
[2019-05-28] MEDS ORDERED: ASPIRIN 325 MG TABLET ONE (02:11)
[2019-05-28] MEDS ORDERED: ONDANSETRON HCL 4 MG/2 ML VIAL ONE (02:51)
[2019-05-28] MEDS ORDERED: MORPHINE SULFATE 4 MG/1ML SYG ONE (02:51)
[2019-05-28 03:17] LABS: ALBUMIN 2.6 g/dL (3.5-5.0); BILIRUBIN,TOTAL 0.4 mg/dL (0.2-1.0); TOTAL PROTEIN, SERUM 7.5 g/dL (6.0-8.3)
[2019-05-28 03:25] LABS: CREATINE KINASE, TOTAL 44 U/L (21-232); MYOGLOBIN 147 ng/mL (10-92); TROPONIN I < 0.04 ng/mL (0.00-0.06)
[2019-05-28 03:36] LABS: CREATININE 13.9 mg/dL (0.5-1.5); POTASSIUM 7.1 mmol/L (3.5-5.1)
[2019-05-28] MEDS ORDERED: SODIUM BICARB 50MEQ 50ML VIAL ONE (03:51)
[2019-05-28] MEDS ORDERED: CALCIUM GLUCONATE 1 GM/10 ML VIAL IV ONE (03:51)
[2019-05-28] MEDS ORDERED: INSULIN HUMULIN R 100 UNIT/ML 3ML ONE (03:53)
[2019-05-28] MEDS ORDERED: DEXTROSE 50%-WATER 50 ML DISP.SYRIN IV ONE (03:53)
[2019-05-28] MEDS ORDERED: ALBUTEROL SULFATE 0.083% 2.5 MG/3 ML INH IH ONE (04:13)
[2019-05-28] MEDS ORDERED: ONDANSETRON HCL 4 MG/2 ML VIAL IV PRN (04:30)
[2019-05-28] MEDS ORDERED: DEXTROSE 50%-WATER 50 ML DISP.SYRIN IV PRN (04:30)
[2019-05-28] MEDS ORDERED: NITROGLYCERIN 0.4 MG SL TAB SL PRN (04:30)
[2019-05-28] MEDS ORDERED: ACETAMINOPHEN 325 MG TAB PO PRN (04:30)
[2019-05-28] MEDS ORDERED: DIPHENHYDRAMINE HCL 25 MG CAPSULE PO PRN (04:30)
[2019-05-28] MEDS ORDERED: GLUCAGON 1MG KIT 1 MG ML IM PRN (04:30)
[2019-05-28 05:15] VITALS: BP 157/77
[2019-05-28] MEDS: INSULIN HUMULIN R 100 UNIT/ML 3ML SQ SCH ×4 (06:06→20:17)
[2019-05-28 06:25] LABS: MAGNESIUM 2.4 mg/dL (1.80-2.40); PHOSPHORUS 12.1 mg/dL (2.5-4.9)
[2019-05-28 07:30] VITALS: BP 134/82
[2019-05-28] MEDS ORDERED: SODIUM POLYSTYRENE SULFONATE 15 GM/60 ML ML PO SCH (08:45)
[2019-05-28] MEDS: HEPARIN SODIUM 5000UNIT/ML 1ML VIAL SQ SCH ×4 (09:00→20:26)
[2019-05-28] MEDS: AMLODIPINE BESYLATE 5 MG TAB PO SCH (09:54)
[2019-05-28] MEDS: ACETAMINOPHEN 325 MG TAB PO PRN ×2 (09:54→21:50)
[2019-05-28 11:00] VITALS: BP 136/60
--- NOTE | 2019-05-28 13:17 | NUR ---
MD NOTIFIED NOTIFIED DR. RAMSAY REGARDING PATIENT REPORTING LEFT SIDE CHEST PAIN THAT RADIATES TO BACK. DR. RAMSAY ORDERED TROPONIN AND EKG.
[2019-05-28 16:00] VITALS: BP 157/69
--- NOTE | 2019-05-28 16:50 | NUR ---
INITIAL Patient lives with spouse. Emergency contacts are sons, Francisco Wu, [phone] and Roque Scruggs, [phone]. Patient has no home services or DME. She is able to complete ADL's independently but does not drive. PCP is Dr. Mcgill. Pharmacy is [facility] located on [address] [facility] in [place]. DCP is home Patient is on dialysis and states she used to go [facility] have [facility] but had to stop going due to Legal Resident card expiring. Patient reports that she has been coming to hospital ER to have dialysis done. Patient states once her daughter receives her income tax, patient will attempt to renew her legal residency card again. Patient was provided with community resources for post hospitalization follow up and Good RX card for prescriptions during her previous hospitalization in April. SW educated patient on [employer] $4 medication program and [facility] $5 medication program. Patient is being assisted by [employer] for financial matters. Addendum: 05/28/19 at 1653 by ROSY ARROYO SS Amended: Links added.
--- NOTE | 2019-05-28 19:53 | NUR ---
DIALYSIS PATIENT RECEIVED DIALYSIS TODAY FROM 1330 TO 1430. REMOVED WAS 3 LITERS, PATIENT TOLERATED PROCEDURE WITHOUT INCIDENT.
[2019-05-28 21:12] LABS: CREATININE 7.7 mg/dL (0.5-1.5); POTASSIUM 4.8 mmol/L (3.5-5.1)
[2019-05-28 21:15] VITALS: BP 194/87
[2019-05-29] VITALS (8 sets, daily range): BP systolic 146–186; BP diastolic 60–76
[2019-05-29] MEDS ORDERED: HYDRALAZINE HCL 20 MG/ML VIAL ONE (00:21)
[2019-05-29] MEDS ORDERED: HYDRALAZINE HCL 20 MG/ML VIAL IV PRN (00:30)
[2019-05-29] MEDS: ACETAMINOPHEN 325 MG TAB PO PRN (04:48)
[2019-05-29 05:37] LABS: HEMATOCRIT 23.5 % (36-48); MEAN CORPUSCULAR HEMOGLOBIN 29.2 pg (27.0-33.0); MEAN CORPUSCULAR HGB CONC 31.9 g/dL (32.0-36.0); MEAN CORPUSCULAR VOLUME 91.4 fL (79-99); PLATELET COUNT (AUTO) 224 K/uL (130-400); RED BLOOD CELL COUNT(AUTO) 2.57 MIL/uL (4.00-5.50); RED CELL DISTRIBUTION WIDTH 15.6 % (11.0-15.5); WHITE BLOOD COUNT (AUTO) 9.3 K/uL (4.8-10.8)
[2019-05-29 06:23] LABS: ALBUMIN 2.7 g/dL (3.5-5.0); BILIRUBIN,TOTAL 0.6 mg/dL (0.2-1.0); MAGNESIUM 2.7 mg/dL (1.80-2.40); PHOSPHORUS 8.3 mg/dL (2.5-4.9); POTASSIUM 5.6 mmol/L (3.5-5.1); TOTAL PROTEIN, SERUM 8.1 g/dL (6.0-8.3)
[2019-05-29 06:30] LABS: BAND NEUTROPHILS % (MANUAL) 1 % (0-2); BASOPHILS % (MANUAL) 1 % (0-2); EOSINOPHILS % (MANUAL) 2 % (1-6); LYMPHOCYTES % (MANUAL) 10 % (22-44); MAN.DIFF COMMENT-IMPRESSION MANUAL DIFFERENTIAL; MONOCYTES % (MANUAL) 9 % (2-9); SEGMENTED NEUTROPHILS % 77 % (40-70)
[2019-05-29 06:49] LABS: CREATININE 8.6 mg/dL (0.5-1.5)
[2019-05-29] MEDS: INSULIN HUMULIN R 100 UNIT/ML 3ML SQ SCH ×4 (06:51→22:16)
[2019-05-29] MEDS: HEPARIN SODIUM 5000UNIT/ML 1ML VIAL SQ SCH ×3 (09:00→21:00)
[2019-05-29] MEDS ORDERED: VANCOMYCIN PROTOCOL PER PHARMACY IV SCH (09:15)
[2019-05-29] MEDS ORDERED: VANCOMYCIN 1GM+NS 250ML 250 ML IV SCH (10:00)
[2019-05-29] MEDS ORDERED: COMPOUND IV REFRIGERATED 1 EACH IVSOLN MISC PRN (14:45)
[2019-05-29] MEDS: AMLODIPINE BESYLATE 5 MG TAB PO SCH (15:27)
[2019-05-29] MEDS: LABETALOL HCL 100 MG TABLET PO SCH ×2 (15:27→22:14)
[2019-05-29] MEDS: ZOSYN 3.375GM+NS 50ML 50 ML IV SCH (22:16)
[2019-05-30 03:00] VITALS: BP 173/70
[2019-05-30] MEDS: ACETAMINOPHEN 325 MG TAB PO PRN ×2 (03:57→22:07)
[2019-05-30] MEDS: INSULIN HUMULIN R 100 UNIT/ML 3ML SQ SCH ×4 (06:01→21:59)
[2019-05-30 06:53] LABS: CREATININE 6.3 mg/dL (0.5-1.5); POTASSIUM 4.5 mmol/L (3.5-5.1)
[2019-05-30 07:58] VITALS: BP 166/66
[2019-05-30] MEDS: HEPARIN SODIUM 5000UNIT/ML 1ML VIAL SQ SCH ×3 (09:00→21:00)
[2019-05-30] MEDS: AMLODIPINE BESYLATE 5 MG TAB PO SCH (09:09)
[2019-05-30] MEDS: LABETALOL HCL 100 MG TABLET PO SCH ×2 (09:10→21:58)
[2019-05-30] MEDS: ZOSYN 3.375GM+NS 50ML 50 ML IV SCH ×2 (09:10→21:57)
[2019-05-30 11:14] VITALS: BP 159/68
[2019-05-30 16:00] VITALS: BP 145/56
[2019-05-30 19:00] VITALS: BP 145/61
[2019-05-31] VITALS (7 sets, daily range): BP systolic 113–178; BP diastolic 48–78
[2019-05-31] MEDS: INSULIN HUMULIN R 100 UNIT/ML 3ML SQ SCH ×5 (06:13→20:39)
[2019-05-31 06:16] LABS: BASOPHILS % (AUTO) 1.2 % (0.0-5.0); EOSINOPHILS % (AUTO) 6.3 % (0.0-8.0); LYMPHOCYTES % (AUTO) 13.8 % (21.0-51.0); MEAN CORPUSCULAR HEMOGLOBIN 28.4 pg (27.0-33.0); MEAN CORPUSCULAR HGB CONC 31.2 g/dL (32.0-36.0); MEAN CORPUSCULAR VOLUME 91.2 fL (79-99); MONOCYTES % (AUTO) 10.1 % (3.0-13.0); NEUTROPHILS % (AUTO) 67.3 % (40.0-77.0); PLATELET COUNT (AUTO) 295 K/uL (130-400); RED BLOOD CELL COUNT(AUTO) 2.85 MIL/uL (4.00-5.50); RED CELL DISTRIBUTION WIDTH 14.8 % (11.0-15.5); WHITE BLOOD COUNT (AUTO) 7.4 K/uL (4.8-10.8)
[2019-05-31 06:47] LABS: POTASSIUM 4.5 mmol/L (3.5-5.1)
[2019-05-31 07:29] LABS: CREATININE 8.1 mg/dL (0.5-1.5)
[2019-05-31] MEDS: HEPARIN SODIUM 5000UNIT/ML 1ML VIAL SQ SCH ×3 (07:49→21:00)
[2019-05-31] MEDS: AMLODIPINE BESYLATE 5 MG TAB PO SCH (07:54)
[2019-05-31] MEDS: LABETALOL HCL 100 MG TABLET PO SCH ×2 (07:54→21:00)
[2019-05-31] MEDS: ZOSYN 3.375GM+NS 50ML 50 ML IV SCH ×2 (07:54→20:59)
[2019-05-31] MEDS: ACETAMINOPHEN 325 MG TAB PO PRN (07:58)
[2019-05-31] MEDS: VANCOMYCIN 0.75 GM in SODIUM CHLORIDE 0.9% 250 ML IV SCH (11:07)
[2019-06-01 03:00] VITALS: BP 130/48
[2019-06-01 06:33] LABS: BASOPHILS % (AUTO) 1.2 % (0.0-5.0); EOSINOPHILS % (AUTO) 6.2 % (0.0-8.0); HEMATOCRIT 27.8 % (36-48); LYMPHOCYTES % (AUTO) 17.6 % (21.0-51.0); MEAN CORPUSCULAR HEMOGLOBIN 28.7 pg (27.0-33.0); MEAN CORPUSCULAR HGB CONC 31.3 g/dL (32.0-36.0); MEAN CORPUSCULAR VOLUME 91.7 fL (79-99); MONOCYTES % (AUTO) 11.3 % (3.0-13.0); NEUTROPHILS % (AUTO) 62.6 % (40.0-77.0); PLATELET COUNT (AUTO) 282 K/uL (130-400); RED BLOOD CELL COUNT(AUTO) 3.03 MIL/uL (4.00-5.50); RED CELL DISTRIBUTION WIDTH 15.1 % (11.0-15.5); WHITE BLOOD COUNT (AUTO) 5.7 K/uL (4.8-10.8)
[2019-06-01 06:51] LABS: ALBUMIN 2.6 g/dL (3.5-5.0); BILIRUBIN,TOTAL 0.4 mg/dL (0.2-1.0); CREATININE 5.7 mg/dL (0.5-1.5); POTASSIUM 4.2 mmol/L (3.5-5.1)
[2019-06-01 07:08] VITALS: BP 131/62
[2019-06-01 07:14] LABS: HEPATITIS A ANTIBODY IGM Negative (Negative); HEPATITIS B CORE IGM Negative (Negative); HEPATITIS Bs ANTIGEN SCREEN P Negative (Negative)
[2019-06-01] MEDS: INSULIN HUMULIN R 100 UNIT/ML 3ML SQ SCH ×4 (07:30→21:37)
[2019-06-01] MEDS: HEPARIN SODIUM 5000UNIT/ML 1ML VIAL SQ SCH ×3 (07:58→21:00)
[2019-06-01] MEDS: AMLODIPINE BESYLATE 5 MG TAB PO SCH (09:07)
[2019-06-01] MEDS: ZOSYN 3.375GM+NS 50ML 50 ML IV SCH ×2 (09:07→21:37)
[2019-06-01] MEDS: LABETALOL HCL 100 MG TABLET PO SCH ×2 (09:07→21:38)
[2019-06-01 10:45] VITALS: BP 163/63
[2019-06-01 16:17] VITALS: BP 150/61
[2019-06-01 19:00] VITALS: BP 143/78
[2019-06-01 23:00] VITALS: BP 128/77
[2019-06-02 03:00] VITALS: BP 134/67
[2019-06-02] MEDS: ACETAMINOPHEN 325 MG TAB PO PRN (05:10)
[2019-06-02 05:29] LABS: BASOPHILS % (AUTO) 1.2 % (0.0-5.0); EOSINOPHILS % (AUTO) 6.4 % (0.0-8.0); HEMATOCRIT 27.2 % (36-48); LYMPHOCYTES % (AUTO) 16.2 % (21.0-51.0); MEAN CORPUSCULAR HEMOGLOBIN 28.4 pg (27.0-33.0); MEAN CORPUSCULAR HGB CONC 31.3 g/dL (32.0-36.0); MONOCYTES % (AUTO) 10.7 % (3.0-13.0); NEUTROPHILS % (AUTO) 64.1 % (40.0-77.0); PLATELET COUNT (AUTO) 281 K/uL (130-400); RED BLOOD CELL COUNT(AUTO) 2.99 MIL/uL (4.00-5.50); RED CELL DISTRIBUTION WIDTH 14.9 % (11.0-15.5); WHITE BLOOD COUNT (AUTO) 6.6 K/uL (4.8-10.8)
[2019-06-02 05:38] LABS: ALBUMIN 2.8 g/dL (3.5-5.0); BILIRUBIN,TOTAL 0.5 mg/dL (0.2-1.0); CREATININE 7.4 mg/dL (0.5-1.5); POTASSIUM 3.9 mmol/L (3.5-5.1); TOTAL PROTEIN, SERUM 8.1 g/dL (6.0-8.3)
[2019-06-02] MEDS: INSULIN HUMULIN R 100 UNIT/ML 3ML SQ SCH ×3 (06:11→16:30)
[2019-06-02 08:47] VITALS: BP 150/72
[2019-06-02] MEDS: HEPARIN SODIUM 5000UNIT/ML 1ML VIAL SQ SCH ×2 (09:00→14:00)
[2019-06-02 11:11] VITALS: BP 161/67
[2019-06-02] MEDS: LABETALOL HCL 100 MG TABLET PO SCH (11:51)
[2019-06-02] MEDS: AMLODIPINE BESYLATE 5 MG TAB PO SCH (11:51)
[2019-06-02] MEDS: ZOSYN 3.375GM+NS 50ML 50 ML IV SCH (11:51)
[2019-06-02 15:34] VITALS: BP 188/77
[2019-06-02] MEDS: VANCOMYCIN 0.75 GM in SODIUM CHLORIDE 0.9% 250 ML IV SCH (15:57)
[2019-06-02] MEDS ORDERED: CEPH500B PO (16:25)
--- NOTE | 2019-06-02 18:00 | NUR ---
PATIENT STATES BLOOD SUGARS DROP WITH INSULIN ,CURRENT BEFORE DINNER BS AT 227. PER PATIENT WOULD NOT WANT INSULIN . DISCHARGE INSTRUCTION PROIVIDED TO PATIENT ALONG WITH PRESCRIPTION .. INSTRUCTED IN CASE OF AN EMERGENCY RICHARD 911 OR GO TO NEAREST EMERGENCY ROOM
[2019-06-02 18:24] VITALS: BP 116/61
== END 2019-06-02 18:47 | disposition home or self-care (01) | DRG 189 ==
LOC: EDH 00:33 → OBSVTOIN 00:34 → EDHIP 00:34 → 3DH 04:31
PROVIDERS: ADMIT Internal Medicine; ATTEND Internal Medicine
PROC: 5A1D70Z Performance of Urinary Filtration, Intermittent, Less than 6 Hours Per Day (ICD-10-PCS; principal; 2019-05-28)
PROC: 5A1D70Z Performance of Urinary Filtration, Intermittent, Less than 6 Hours Per Day (ICD-10-PCS; 2019-05-29)
PROC: 5A1D70Z Performance of Urinary Filtration, Intermittent, Less than 6 Hours Per Day (ICD-10-PCS; 2019-05-31)
PROC: 5A1D70Z Performance of Urinary Filtration, Intermittent, Less than 6 Hours Per Day (ICD-10-PCS; 2019-06-02)
DX: J96.01 Acute respiratory failure with hypoxia (principal); J15.9 Unspecified bacterial pneumonia; N18.6 End stage renal disease; I13.2 Hypertensive heart and chronic kidney disease with heart failure and with stage 5 chronic kidney disease, or end stage renal disease; I50.32 Chronic diastolic (congestive) heart failure; N17.9 Acute kidney failure, unspecified; E87.70 Fluid overload, unspecified; E87.5 Hyperkalemia; E11.22 Type 2 diabetes mellitus with diabetic chronic kidney disease; D64.9 Anemia, unspecified; Z99.2 Dependence on renal dialysis; Z83.3 Family history of diabetes mellitus; Z82.49 Family history of ischemic heart disease and other diseases of the circulatory system
CPT/HCPCS: 36415; 71045; 71046; 71100; 73020; 80048; 80053; 80074; 82550; 82948; 83735; 83874; 84100; 84132; 84145; 84484; 85025; 90935; 93005; 94640; 99291; G0378; J0360; J0610; J1644; J1815; J2270; J2405; J2543; J3370; J3490; J7030; J7070

== ENCOUNTER 2019-06-17 12:38 | Inpatient (IN) | payer OTHER ==
[~2019-06-17] VITALS: Ht 157.5 cm; Wt 53.0 kg
[~2019-06-17 12:38] MED LIST changes: -DOXY100T2 PO
[2019-06-17 12:55] LABS: BASOPHILS % (AUTO) 0.3 % (0.0-5.0); EOSINOPHILS % (AUTO) 2.7 % (0.0-8.0); HEMATOCRIT 24.4 % (36-48); LYMPHOCYTES % (AUTO) 7.3 % (21.0-51.0); MEAN CORPUSCULAR HEMOGLOBIN 29.8 pg (27.0-33.0); MEAN CORPUSCULAR HGB CONC 32.4 g/dL (32.0-36.0); MEAN CORPUSCULAR VOLUME 92.1 fL (79-99); MONOCYTES % (AUTO) 5.8 % (3.0-13.0); NEUTROPHILS % (AUTO) 83.2 % (40.0-77.0); PLATELET COUNT (AUTO) 252 K/uL (130-400); RED BLOOD CELL COUNT(AUTO) 2.65 MIL/uL (4.00-5.50); RED CELL DISTRIBUTION WIDTH 14.8 % (11.0-15.5); WHITE BLOOD COUNT (AUTO) 11.8 K/uL (4.8-10.8)
[2019-06-17] MEDS ORDERED: ASPIRIN 325 MG TABLET ONE (13:04)
[2019-06-17 13:10] LABS: INR 0.96 (0.85-1.15); PARTIAL THROMBOPLASTIN TIME 33.6 SEC (26.3-35.5); PROTHROMBIN TIME 10.4 SEC (9.6-11.6)
[2019-06-17 13:14] LABS: ALBUMIN 3.1 g/dL (3.5-5.0); BILIRUBIN,TOTAL 0.4 mg/dL (0.2-1.0); POTASSIUM 5.6 mmol/L (3.5-5.1); TOTAL PROTEIN, SERUM 8.6 g/dL (6.0-8.3)
[2019-06-17 13:16] LABS: CREATININE 12.6 mg/dL (0.5-1.5)
[2019-06-17] MEDS ORDERED: NITROGLYCERIN 0.4 MG SL TAB SL PRN (14:15)
[2019-06-17] MEDS ORDERED: ACETAMINOPHEN 325 MG TAB PO PRN (14:15)
[2019-06-17 17:09] VITALS: BP 149/68
[2019-06-17 20:00] VITALS: BP 190/76
[2019-06-17] MEDS: HEPARIN SODIUM 5000UNIT/ML 1ML VIAL SQ SCH (20:04)
[2019-06-17 21:00] VITALS: BP 161/74
[2019-06-17 23:56] VITALS: BP 182/67
[2019-06-18] MEDS ORDERED: HYDRALAZINE HCL 20 MG/ML VIAL IV PRN (00:15)
[2019-06-18] MEDS ORDERED: HYDRALAZINE HCL 20 MG/ML VIAL ONE (00:20)
[2019-06-18 04:00] VITALS: BP 154/65
[2019-06-18 04:29] LABS: BASOPHILS % (AUTO) 0.4 % (0.0-5.0); EOSINOPHILS % (AUTO) 3.4 % (0.0-8.0); HEMATOCRIT 25.7 % (36-48); LYMPHOCYTES % (AUTO) 5.1 % (21.0-51.0); MEAN CORPUSCULAR HEMOGLOBIN 29.2 pg (27.0-33.0); MEAN CORPUSCULAR HGB CONC 32.7 g/dL (32.0-36.0); MEAN CORPUSCULAR VOLUME 89.2 fL (79-99); MONOCYTES % (AUTO) 5.9 % (3.0-13.0); NEUTROPHILS % (AUTO) 84.6 % (40.0-77.0); PLATELET COUNT (AUTO) 253 K/uL (130-400); RED BLOOD CELL COUNT(AUTO) 2.88 MIL/uL (4.00-5.50); RED CELL DISTRIBUTION WIDTH 14.5 % (11.0-15.5); WHITE BLOOD COUNT (AUTO) 9.3 K/uL (4.8-10.8)
[2019-06-18 04:52] LABS: ALBUMIN 2.7 g/dL (3.5-5.0); BILIRUBIN,TOTAL 0.4 mg/dL (0.2-1.0); CREATININE 7.2 mg/dL (0.5-1.5); POTASSIUM 4.4 mmol/L (3.5-5.1); TOTAL PROTEIN, SERUM 8.1 g/dL (6.0-8.3)
[2019-06-18 08:11] VITALS: BP 178/74
[2019-06-18] MEDS: FAMOTIDINE 20MG TAB 20 MG TAB PO SCH (08:42)
[2019-06-18] MEDS: HEPARIN SODIUM 5000UNIT/ML 1ML VIAL SQ SCH ×2 (08:47→20:19)
[2019-06-18 11:33] VITALS: BP 160/72
[2019-06-18 16:19] VITALS: BP 152/57
[2019-06-18 19:58] VITALS: BP 150/68
[2019-06-18] MEDS: ONDANSETRON HCL 4 MG/2 ML VIAL IV PRN (23:37)
[2019-06-18 23:56] VITALS: BP 100/70
[2019-06-19 03:38] VITALS: BP 138/65
[2019-06-19 05:24] LABS: BASOPHILS % (AUTO) 0.6 % (0.0-5.0); EOSINOPHILS % (AUTO) 2.6 % (0.0-8.0); HEMATOCRIT 27.6 % (36-48); LYMPHOCYTES % (AUTO) 15.2 % (21.0-51.0); MEAN CORPUSCULAR HEMOGLOBIN 29.3 pg (27.0-33.0); MEAN CORPUSCULAR HGB CONC 32.2 g/dL (32.0-36.0); MEAN CORPUSCULAR VOLUME 90.8 fL (79-99); MONOCYTES % (AUTO) 12.2 % (3.0-13.0); PLATELET COUNT (AUTO) 279 K/uL (130-400); RED BLOOD CELL COUNT(AUTO) 3.04 MIL/uL (4.00-5.50); RED CELL DISTRIBUTION WIDTH 14.6 % (11.0-15.5); WHITE BLOOD COUNT (AUTO) 5.3 K/uL (4.8-10.8)
[2019-06-19 05:41] LABS: ALBUMIN 2.7 g/dL (3.5-5.0); BILIRUBIN,TOTAL 0.4 mg/dL (0.2-1.0); TOTAL PROTEIN, SERUM 8.1 g/dL (6.0-8.3)
[2019-06-19 07:07] VITALS: BP 164/65
[2019-06-19] MEDS: ONDANSETRON HCL 4 MG/2 ML VIAL IV PRN (07:36)
[2019-06-19] MEDS: HEPARIN SODIUM 5000UNIT/ML 1ML VIAL SQ SCH (09:00)
[2019-06-19] MEDS ORDERED: AMLODIPINE BESYLATE 5 MG TAB PO SCH (09:15)
[2019-06-19] MEDS: FAMOTIDINE 20MG TAB 20 MG TAB PO SCH (09:58)
[2019-06-19 10:46] VITALS: BP 186/77
[2019-06-19 15:46] VITALS: BP 107/54
== END 2019-06-19 17:20 | disposition home or self-care (01) | DRG 205 ==
LOC: EDH 12:38 → EDHIP 14:04 → 3BH 16:43
PROVIDERS: ADMIT Internal Medicine; ATTEND Internal Medicine
PROC: 5A1D70Z Performance of Urinary Filtration, Intermittent, Less than 6 Hours Per Day (ICD-10-PCS; principal; 2019-06-17)
PROC: 5A1D70Z Performance of Urinary Filtration, Intermittent, Less than 6 Hours Per Day (ICD-10-PCS; 2019-06-18)
PROC: 5A1D70Z Performance of Urinary Filtration, Intermittent, Less than 6 Hours Per Day (ICD-10-PCS; 2019-06-19)
DX: M94.0 Chondrocostal junction syndrome [Tietze] (principal); N18.6 End stage renal disease; I13.2 Hypertensive heart and chronic kidney disease with heart failure and with stage 5 chronic kidney disease, or end stage renal disease; I50.32 Chronic diastolic (congestive) heart failure; N17.9 Acute kidney failure, unspecified; E87.70 Fluid overload, unspecified; E11.65 Type 2 diabetes mellitus with hyperglycemia; E11.22 Type 2 diabetes mellitus with diabetic chronic kidney disease; D64.9 Anemia, unspecified; D72.829 Elevated white blood cell count, unspecified; Z99.2 Dependence on renal dialysis; Z91.19 Patient's noncompliance with other medical treatment and regimen; Z83.3 Family history of diabetes mellitus; Z82.49 Family history of ischemic heart disease and other diseases of the circulatory system; Z91.15 Patient's noncompliance with renal dialysis; I16.0 Hypertensive urgency
CPT/HCPCS: 36415; 71045; 80053; 82550; 82948; 84484; 85025; 85610; 85730; 90935; 93005; G0378; J0360; J1644; J2405

== ENCOUNTER 2019-06-25 12:50 | Inpatient (IN) | payer OTHER ==
[~2019-06-25] VITALS: Ht 157.5 cm; Wt 57.3 kg
[~2019-06-25 12:50] MED LIST changes: +AMLODIPINE BESYLATE 5 MG TAB PO SCH
[2019-06-25 13:22] LABS: BASOPHILS % (AUTO) 0.3 % (0.0-5.0); EOSINOPHILS % (AUTO) 1.8 % (0.0-8.0); HEMATOCRIT 21.7 % (36-48); LYMPHOCYTES % (AUTO) 7.7 % (21.0-51.0); MEAN CORPUSCULAR HEMOGLOBIN 29.2 pg (27.0-33.0); MEAN CORPUSCULAR HGB CONC 31.8 g/dL (32.0-36.0); MEAN CORPUSCULAR VOLUME 91.9 fL (79-99); MONOCYTES % (AUTO) 6.2 % (3.0-13.0); NEUTROPHILS % (AUTO) 82.4 % (40.0-77.0); PLATELET COUNT (AUTO) 236 K/uL (130-400); RED BLOOD CELL COUNT(AUTO) 2.36 MIL/uL (4.00-5.50); RED CELL DISTRIBUTION WIDTH 14.8 % (11.0-15.5); WHITE BLOOD COUNT (AUTO) 11.3 K/uL (4.8-10.8)
[2019-06-25 13:33] LABS: INR 0.99 (0.85-1.15); PARTIAL THROMBOPLASTIN TIME 33.1 SEC (26.3-35.5); PROTHROMBIN TIME 10.7 SEC (9.6-11.6)
[2019-06-25 13:34] LABS: ALBUMIN 2.9 g/dL (3.5-5.0); BILIRUBIN,TOTAL 0.4 mg/dL (0.2-1.0); POTASSIUM 5.5 mmol/L (3.5-5.1); TOTAL PROTEIN, SERUM 7.6 g/dL (6.0-8.3)
[2019-06-25 13:35] LABS: CREATININE 14.2 mg/dL (0.5-1.5)
[2019-06-25] MEDS ORDERED: CALCIUM GLUCONATE 1 GM/10 ML VIAL IV ONE (13:55)
[2019-06-25] MEDS ORDERED: LABETALOL HCL 100 MG TABLET PO SCH (15:15)
[2019-06-25] MEDS ORDERED: SODIUM POLYSTYRENE SULFONATE 15 GM/60 ML ML PO SCH ×2 (15:15→15:30)
[2019-06-25] MEDS ORDERED: MORPHINE SULFATE 2 MG/ML 1ML SYG ONE (15:24)
[2019-06-25] MEDS ORDERED: ONDANSETRON HCL 4 MG/2 ML VIAL ONE (15:25)
[2019-06-25] MEDS ORDERED: SODIUM POLYSTYRENE SULFONATE 15 GM/60 ML ML ONE (15:26)
[2019-06-25] MEDS ORDERED: LABETALOL HCL 100 MG TABLET ONE (15:27)
[2019-06-25] MEDS ORDERED: LABETALOL HCL 200 MG TABLET ONE (15:27)
[2019-06-25] MEDS ORDERED: ACETAMINOPHEN 325 MG TAB PO PRN ×2 (15:30)
[2019-06-25 16:17] VITALS: BP 152/62
--- NOTE | 2019-06-25 17:40 | NUR ---
DR. ANN IS IN TO SEE PATIENT. AM LABS ORDERED. PROCRIT ORDERED FOR ANEMIA. PATIENT IS PENDING HEMODIALYSIS.
[2019-06-25 20:11] VITALS: BP 165/72
--- NOTE | 2019-06-25 20:30 | NUR ---
PATIENT RECEIVING HD HD FROM 1714 -2004. PATIENT STARTING C/O NAUSEA AND CRAMPING OF FEET. SBP 195/74. DENIES SOB. PATIENT DROWSY. ALERT TO NAME, , AND PLACE.
[2019-06-25] MEDS: INSULIN HUMULIN R 100 UNIT/ML 3ML SQ SCH (21:00)
--- NOTE | 2019-06-25 21:00 | NUR ---
ORDERS VERBAL ORDERS FROM MIKAEL Brenner for BP AND NAUSEA.
[2019-06-25 21:30] VITALS: BP 195/74
[2019-06-25] MEDS: HYDRALAZINE HCL 20 MG/ML VIAL IV PRN (21:37)
[2019-06-25] MEDS: ONDANSETRON HCL 4 MG/2 ML VIAL IVP PRN (21:37)
[2019-06-25] MEDS: EPOETIN ALFA 10,000 UNIT/ML VIAL SQ SCH (21:37)
[2019-06-25 22:32] VITALS: BP 159/68
[2019-06-25 23:24] VITALS: BP 164/70
[2019-06-26] VITALS (7 sets, daily range): BP systolic 143–180; BP diastolic 56–72
[2019-06-26] MEDS: HYDRALAZINE HCL 20 MG/ML VIAL IV PRN (04:23)
[2019-06-26 04:49] LABS: HEMATOCRIT 21.9 % (36-48); MEAN CORPUSCULAR HEMOGLOBIN 29.7 pg (27.0-33.0); MEAN CORPUSCULAR HGB CONC 33.3 g/dL (32.0-36.0); PLATELET COUNT (AUTO) 233 K/uL (130-400); RED BLOOD CELL COUNT(AUTO) 2.46 MIL/uL (4.00-5.50); RED CELL DISTRIBUTION WIDTH 14.6 % (11.0-15.5); WHITE BLOOD COUNT (AUTO) 7.4 K/uL (4.8-10.8)
[2019-06-26 05:04] LABS: BAND NEUTROPHILS % (MANUAL) 4 % (0-2); LYMPHOCYTES % (MANUAL) 18 % (22-44); MAN.DIFF COMMENT-IMPRESSION MANUAL DIFFERENTIAL; MONOCYTES % (MANUAL) 2 % (2-9); PLATELET MORPHOLOGY COMMENT ADEQUATE; SEGMENTED NEUTROPHILS % 76 % (40-70)
[2019-06-26 05:06] LABS: CREATININE 6.5 mg/dL (0.5-1.5); PHOSPHORUS 6.3 mg/dL (2.5-4.9); POTASSIUM 4.4 mmol/L (3.5-5.1)
[2019-06-26] MEDS: INSULIN HUMULIN R 100 UNIT/ML 3ML SQ SCH ×4 (06:03→21:00)
--- NOTE | 2019-06-26 08:00 | NUR ---
ASSESSMENT PT IS AAOX3 DENIES CP DENIES SOB DENIES NV NO COMPLAINTS. LEFT ARM HD ACCESS +THRILL + BRUIT. SITTING UP IN BED, CALL LIGHT WITHIN REACH.
--- NOTE | 2019-06-26 17:06 | NUR ---
INITIAL: Spoke w EC son Roque @ [phone]. PT is a regular admit dt need for Hemodialysis. Prior to admission pt was living w her spouse and son Roque. Per Roque pt is independent w ambulation and ADLs. She does not own any DME. Roque mentions that pt is still pending proof of residency to setup outpt HD. He mentions that he is not able to locate her certificate and will ask his aunt to help him obtain it from [facility]. Informed him regarding importance of expediting this process to avoid further need for hospitalization. Per Roque he provides transportation when needed. DCP is for pt to return home at mi. CM to continue to follow and wait for Md recommendations. Addendum: 06/26/19 at 1711 by DIGNA VARGAS Amended: Links added.
[2019-06-26] MEDS: EPOETIN ALFA 10,000 UNIT/ML VIAL SQ SCH (20:07)
[2019-06-26] MEDS: ONDANSETRON HCL 4 MG/2 ML VIAL IVP PRN (20:18)
[2019-06-27 04:00] LABS: BASOPHILS % (AUTO) 0.4 % (0.0-5.0); EOSINOPHILS % (AUTO) 2.4 % (0.0-8.0); HEMATOCRIT 24.2 % (36-48); LYMPHOCYTES % (AUTO) 18.5 % (21.0-51.0); MEAN CORPUSCULAR HEMOGLOBIN 29.3 pg (27.0-33.0); MEAN CORPUSCULAR HGB CONC 32.2 g/dL (32.0-36.0); MONOCYTES % (AUTO) 13.6 % (3.0-13.0); NEUTROPHILS % (AUTO) 64.2 % (40.0-77.0); PLATELET COUNT (AUTO) 249 K/uL (130-400); RED BLOOD CELL COUNT(AUTO) 2.66 MIL/uL (4.00-5.50); RED CELL DISTRIBUTION WIDTH 14.8 % (11.0-15.5); WHITE BLOOD COUNT (AUTO) 4.5 K/uL (4.8-10.8)
[2019-06-27 04:17] LABS: CREATININE 4.2 mg/dL (0.5-1.5); POTASSIUM 3.8 mmol/L (3.5-5.1)
[2019-06-27 04:32] VITALS: BP 142/69
[2019-06-27] MEDS: INSULIN HUMULIN R 100 UNIT/ML 3ML SQ SCH (06:11)
[2019-06-27] MEDS ORDERED: LABETALOL HCL 200 MG TABLET PO SCH (07:30)
[2019-06-27 07:52] VITALS: BP 159/87
[2019-06-27] MEDS ORDERED: AMLODIPINE BESYLATE 5 MG TAB PO SCH (09:00)
[2019-06-27 11:16] VITALS: BP 158/83
--- NOTE | 2019-06-27 12:30 | NUR ---
DISCHARGE INSTRUCTIONS/INFORMATION GIVEN TO PATIENT. TEACH BACK METHOD USED TO EDUCATE PATIENT ON DIET, FLUID OVERLOAD, AND F/U APPOINTMENTS. PIV REMOVED. TIP WAS INTACT. TELE PACK REMOVED AND RETURNED. ALL BELONGINGS PACKED AND TAKEN HOME.
[2019-06-29 08:13] LABS: HEPATITIS A ANTIBODY IGM Negative (Negative); HEPATITIS B CORE IGM Negative (Negative); HEPATITIS Bs ANTIGEN SCREEN P Negative (Negative)
== END 2019-06-27 12:55 | disposition home or self-care (01) | DRG 205 ==
LOC: EDH 12:50 → EDHIP 15:03 → 2DH 16:03
PROVIDERS: ADMIT Internal Medicine; ATTEND Internal Medicine
PROC: 5A1D70Z Performance of Urinary Filtration, Intermittent, Less than 6 Hours Per Day (ICD-10-PCS; principal; 2019-06-25)
PROC: 5A1D70Z Performance of Urinary Filtration, Intermittent, Less than 6 Hours Per Day (ICD-10-PCS; 2019-06-26)
DX: M94.0 Chondrocostal junction syndrome [Tietze] (principal); N18.6 End stage renal disease; J96.91 Respiratory failure, unspecified with hypoxia; I13.2 Hypertensive heart and chronic kidney disease with heart failure and with stage 5 chronic kidney disease, or end stage renal disease; I50.32 Chronic diastolic (congestive) heart failure; E87.70 Fluid overload, unspecified; E87.5 Hyperkalemia; D72.829 Elevated white blood cell count, unspecified; E11.65 Type 2 diabetes mellitus with hyperglycemia; E11.22 Type 2 diabetes mellitus with diabetic chronic kidney disease; D64.9 Anemia, unspecified; Z99.2 Dependence on renal dialysis; Z91.19 Patient's noncompliance with other medical treatment and regimen; Z83.3 Family history of diabetes mellitus; Z82.49 Family history of ischemic heart disease and other diseases of the circulatory system
CPT/HCPCS: 36415; 71045; 80048; 80053; 80074; 82550; 82948; 84100; 84484; 85025; 85610; 85730; 90935; 93005; G0378; J0360; J0610; J0885; J2405

== ENCOUNTER 2019-07-01 13:04 | Inpatient (IN) | payer OTHER ==
[~2019-07-01] VITALS: Ht 157.5 cm; Wt 57.6 kg
[~2019-07-01 13:04] MED LIST changes: -AMLODIPINE BESYLATE 5 MG TAB PO SCH
[2019-07-01 13:55] LABS: BASOPHILS % (AUTO) 0.3 % (0.0-5.0); EOSINOPHILS % (AUTO) 1.1 % (0.0-8.0); HEMATOCRIT 23.3 % (36-48); LYMPHOCYTES % (AUTO) 5.9 % (21.0-51.0); MEAN CORPUSCULAR HEMOGLOBIN 29.6 pg (27.0-33.0); MEAN CORPUSCULAR HGB CONC 31.8 g/dL (32.0-36.0); MEAN CORPUSCULAR VOLUME 93.2 fL (79-99); MONOCYTES % (AUTO) 5.4 % (3.0-13.0); NEUTROPHILS % (AUTO) 86.4 % (40.0-77.0); PLATELET COUNT (AUTO) 237 K/uL (130-400); RED CELL DISTRIBUTION WIDTH 15.2 % (11.0-15.5); WHITE BLOOD COUNT (AUTO) 12.4 K/uL (4.8-10.8)
[2019-07-01 14:14] LABS: BILIRUBIN,TOTAL 0.5 mg/dL (0.2-1.0); TOTAL PROTEIN, SERUM 8.3 g/dL (6.0-8.3)
[2019-07-01 14:18] LABS: POTASSIUM 6.3 mmol/L (3.5-5.1)
[2019-07-01 14:40] LABS: B-TYPE NATRIURETIC PEPTIDE 4280 pg/mL (0-100)
[2019-07-01] MEDS ORDERED: CALCIUM GLUCONATE 1 GM/10 ML VIAL IV ONE (15:07)
[2019-07-01] MEDS ORDERED: SODIUM BICARB 50MEQ 50ML VIAL ONE ×2 (15:07→15:27)
[2019-07-01] MEDS ORDERED: SODIUM POLYSTYRENE SULFONATE 15 GM/60 ML ML ONE ×2 (15:07→15:27)
[2019-07-01] MEDS ORDERED: INSULIN HUMULIN R 100 UNIT/ML 3ML ONE (15:08)
[2019-07-01] MEDS ORDERED: DEXTROSE 50%-WATER 50 ML DISP.SYRIN IV ONE (15:09)
[2019-07-01] MEDS ORDERED: ALBUTEROL SULFATE 0.083% 2.5 MG/3 ML INH IH ONE (15:32)
[2019-07-01] MEDS ORDERED: ONDANSETRON HCL 4 MG/2 ML VIAL ONE (16:25)
[2019-07-01] MEDS ORDERED: SODIUM POLYSTYRENE SULFONATE 15 GM/60 ML ML PO SCH (16:45)
[2019-07-01] MEDS: CEFTRIAXONE SODIUM 1 GM IV SCH (17:30)
[2019-07-01] MEDS ORDERED: ONDANSETRON HCL 4 MG/2 ML VIAL IV PRN (17:30)
[2019-07-01] MEDS ORDERED: HYDROMORPHONE HCL 0.5 MG/0.5 ML ML IV PRN (17:30)
--- NOTE | 2019-07-01 19:30 | NUR ---
arrived on floor AT 1930, TRANSPORTED FROM ED VIA BED. PT A/A/O X3. PT ON RA, NO REPORTS OF DISCOMFORT OR DISTRESS. HD NURSE AT BEDSIDE WITH PT.
[2019-07-01 19:35] VITALS: BP 191/77
--- NOTE | 2019-07-01 19:38 | NUR ---
CONSENT FOR HD SIGNED BY PT AND PLACED IN CHART.
[2019-07-01 23:56] VITALS: BP 196/100
[2019-07-02] VITALS (9 sets, daily range): BP systolic 109–205; BP diastolic 64–145
[2019-07-02] MEDS ORDERED: CLONIDINE HCL 0.1 MG TABLET PO STA (00:02)
--- NOTE | 2019-07-02 00:05 | NUR ---
VOCATIONAL COORDINATOR PAGED ELEVATED BP DURING AND POST HD. PAGED FOR BP CONTROL MEDICATIONS. RECEIVED ORDERS FROM JEFFRY PAYNE. PLACED ORDERS IN [facility]- SEE MAY.
[2019-07-02] MEDS ORDERED: CLONIDINE HCL 0.1 MG TABLET ONE (00:10)
[2019-07-02] MEDS: HYDRALAZINE HCL 20 MG/ML VIAL IV PRN (01:47)
[2019-07-02 05:47] LABS: BASOPHILS % (AUTO) 0.3 % (0.0-5.0); HEMATOCRIT 21.8 % (36-48); LYMPHOCYTES % (AUTO) 5.4 % (21.0-51.0); MEAN CORPUSCULAR HEMOGLOBIN 29.4 pg (27.0-33.0); MEAN CORPUSCULAR HGB CONC 31.7 g/dL (32.0-36.0); MEAN CORPUSCULAR VOLUME 92.8 fL (79-99); MONOCYTES % (AUTO) 5.6 % (3.0-13.0); NEUTROPHILS % (AUTO) 86.7 % (40.0-77.0); PLATELET COUNT (AUTO) 213 K/uL (130-400); RED BLOOD CELL COUNT(AUTO) 2.35 MIL/uL (4.00-5.50); RED CELL DISTRIBUTION WIDTH 15.4 % (11.0-15.5); WHITE BLOOD COUNT (AUTO) 8.9 K/uL (4.8-10.8)
[2019-07-02 05:58] LABS: ALBUMIN 2.5 g/dL (3.5-5.0); BILIRUBIN,TOTAL 0.5 mg/dL (0.2-1.0); CREATININE 6.4 mg/dL (0.5-1.5); POTASSIUM 3.5 mmol/L (3.5-5.1); TOTAL PROTEIN, SERUM 7.1 g/dL (6.0-8.3)
--- NOTE | 2019-07-02 06:15 | NUR ---
PAGED JEREMY CRITICAL H/H (6.9/21.8). PENDING CALL BACK.
--- NOTE | 2019-07-02 06:19 | NUR ---
AMINA CALL BACK INFORMED OF H/H. HE REQUESTED TO HAVE SETH PAGED TO SEE WHAT HE RECOMMENDS AT THIS POINT D/T PT BEING A RENAL PT. .
--- NOTE | 2019-07-02 06:35 | NUR ---
PHARMACY SPOKE TO NIKOLAY IN PHARMACY ABOUT MEDICATION NOT PLACED ON MAR OR BROUGHT TO MED ROOM. WAS TOLD TO FAX OVER ORDERS AGAIN.
--- NOTE | 2019-07-02 06:38 | NUR ---
ARIES ANN WAITING FOR CALL BACK IN REGARD TO CRITICAL H/H.
[2019-07-02] MEDS: INSULIN HUMULIN R 100 UNIT/ML 3ML SQ SCH ×4 (06:39→21:00)
[2019-07-02] MEDS ORDERED: EPOETIN ALFA 10,000 UNIT/ML VIAL SQ SCH (06:45)
[2019-07-02] MEDS: LABETALOL HCL 100 MG TABLET PO SCH ×2 (06:51→16:56)
--- NOTE | 2019-07-02 09:40 | NUR ---
INITIAL Patient lives with spouse. Emergency contacts are sons, Francisco Scruggs, and Roque Scruggs, . Patient has no home services or DME. Patient is able to complete ADL's independently but does not drive. Family helps with transportation. PCP is Dr. Mcgill. Pharmacy is [facility] located on [address] [facility] in [place]. DCP is home Patient is on dialysis and was having dialysis at [facility] in [place] but had to stop going due to Legal Resident card. Outpatient dialysis arrangements were attempted during one of patients last admissions with [facility], but patient was not approved due to not being able to provide proof of updated residency. Patient continues to come to ER for dialysis as needed. Patient has been in the hospital multiple times: 06/25/2019-06/27/2019, 06/17/2019-06/19/2019; 06/07/2019-06/11/2019. Addendum: 07/02/19 at 0942 by ROSY ARROYO SS Amended: Links added.
[2019-07-02] MEDS: FAMOTIDINE/PF 20 MG/2 ML VIAL IV SCH (10:26)
[2019-07-02] MEDS: AMLODIPINE BESYLATE 5 MG TAB PO SCH (10:26)
--- NOTE | 2019-07-02 12:15 | NUR ---
RD NOTIFICATION Pt admitted Hyperkalemia, Volume Overload, Hx ESRD on Dialysis. Pt receives intermittently, per EMR. Pt tolerating Dialysis diet order with fair PO intake. Recommend 30mL Promod QD. RD provided Dialysis Nutrition reinforcement. Pt verbalized understanding. RD to continue to monitor. Addendum: 07/02/19 at [address] Amended: Links added.
--- NOTE | 2019-07-02 12:20 | NUR ---
NUTRITION EDUCATION REGINALD provided Renal Dialysis Nutrition education. REGINALD provided reference materials. Pt with no questions at time of education. Pt verbalized understanding. RD to continue to monitor. Addendum: 07/02/19 at [address] Amended: Links added.
[2019-07-02] MEDS ORDERED: SODIUM CHLORIDE 0.9% 250 ML IV ONE (15:21)
[2019-07-02] MEDS: CEFTRIAXONE SODIUM 1 GM IV SCH (16:56)
[2019-07-03 03:00] VITALS: BP 186/70
[2019-07-03] MEDS: INSULIN HUMULIN R 100 UNIT/ML 3ML SQ SCH ×3 (05:20→16:30)
[2019-07-03] MEDS: HYDRALAZINE HCL 20 MG/ML VIAL IV PRN (05:38)
[2019-07-03 06:20] LABS: BASOPHILS % (AUTO) 0.5 % (0.0-5.0); EOSINOPHILS % (AUTO) 1.7 % (0.0-8.0); HEMATOCRIT 25.3 % (36-48); LYMPHOCYTES % (AUTO) 12.9 % (21.0-51.0); MEAN CORPUSCULAR HGB CONC 31.6 g/dL (32.0-36.0); MEAN CORPUSCULAR VOLUME 88.5 fL (79-99); MONOCYTES % (AUTO) 7.6 % (3.0-13.0); NEUTROPHILS % (AUTO) 76.4 % (40.0-77.0); PLATELET COUNT (AUTO) 214 K/uL (130-400); RED BLOOD CELL COUNT(AUTO) 2.86 MIL/uL (4.00-5.50); RED CELL DISTRIBUTION WIDTH 18.5 % (11.0-15.5); WHITE BLOOD COUNT (AUTO) 5.8 K/uL (4.8-10.8)
[2019-07-03 06:38] LABS: ALBUMIN 2.6 g/dL (3.5-5.0); BILIRUBIN,TOTAL 0.4 mg/dL (0.2-1.0); CREATININE 3.3 mg/dL (0.5-1.5); POTASSIUM 3.4 mmol/L (3.5-5.1); TOTAL PROTEIN, SERUM 7.5 g/dL (6.0-8.3)
[2019-07-03 08:00] VITALS: BP 125/56
[2019-07-03] MEDS: FAMOTIDINE/PF 20 MG/2 ML VIAL IV SCH (08:30)
[2019-07-03] MEDS: LABETALOL HCL 100 MG TABLET PO SCH ×2 (08:30→17:26)
[2019-07-03] MEDS: AMLODIPINE BESYLATE 5 MG TAB PO SCH (08:30)
[2019-07-03 11:23] VITALS: BP 166/71
[2019-07-03 16:00] VITALS: BP 152/54
--- NOTE | 2019-07-03 18:30 | NUR ---
NOTE DISCHARGE INSTRUCTIONS GIVEN AT THIS TIME. REFER TO DC SUMMARY FOR DETAILS.
== END 2019-07-03 18:35 | disposition home or self-care (01) | DRG 291 ==
LOC: EDH 13:04 → EDHIP 17:16 → 3AH 18:57
PROVIDERS: ADMIT Hospitalist; ATTEND Hospitalist
PROC: 5A1D70Z Performance of Urinary Filtration, Intermittent, Less than 6 Hours Per Day (ICD-10-PCS; 2019-07-01)
PROC: 5A1D70Z Performance of Urinary Filtration, Intermittent, Less than 6 Hours Per Day (ICD-10-PCS; 2019-07-02)
PROC: 30233N1 Transfusion of Nonautologous Red Blood Cells into Peripheral Vein, Percutaneous Approach (ICD-10-PCS; 2019-07-02)
PROC: 5A1D70Z Performance of Urinary Filtration, Intermittent, Less than 6 Hours Per Day (ICD-10-PCS; principal; 2019-07-03)
DX: I13.2 Hypertensive heart and chronic kidney disease with heart failure and with stage 5 chronic kidney disease, or end stage renal disease (principal); N18.6 End stage renal disease; I50.33 Acute on chronic diastolic (congestive) heart failure; E87.5 Hyperkalemia; R06.03 Acute respiratory distress; D64.9 Anemia, unspecified; E11.65 Type 2 diabetes mellitus with hyperglycemia; E11.22 Type 2 diabetes mellitus with diabetic chronic kidney disease; Z99.2 Dependence on renal dialysis; Z83.3 Family history of diabetes mellitus; Z82.49 Family history of ischemic heart disease and other diseases of the circulatory system; Z79.899 Other long term (current) drug therapy
CPT/HCPCS: 36415; 71045; 80053; 82550; 82948; 83880; 85025; 86850; 86900; 86901; 86922; 90935; 93005; 94640; 99291; G0378; J0360; J0610; J0696; J0885; J1815; J2405; J3490; J7050; J7070; P9016

== ENCOUNTER 2019-07-11 21:39 | Inpatient (IN) | payer OTHER ==
[~2019-07-11] VITALS: Ht 157.5 cm; Wt 59.0 kg
[2019-07-11 22:10] LABS: BASOPHILS % (AUTO) 0.3 % (0.0-5.0); EOSINOPHILS % (AUTO) 1.9 % (0.0-8.0); HEMATOCRIT 22.9 % (36-48); LYMPHOCYTES % (AUTO) 6.8 % (21.0-51.0); MEAN CORPUSCULAR HEMOGLOBIN 27.6 pg (27.0-33.0); MEAN CORPUSCULAR HGB CONC 30.6 g/dL (32.0-36.0); MEAN CORPUSCULAR VOLUME 90.2 fL (79-99); MONOCYTES % (AUTO) 4.3 % (3.0-13.0); NEUTROPHILS % (AUTO) 85.8 % (40.0-77.0); PLATELET COUNT (AUTO) 216 K/uL (130-400); RED BLOOD CELL COUNT(AUTO) 2.54 MIL/uL (4.00-5.50); RED CELL DISTRIBUTION WIDTH 17.3 % (11.0-15.5); WHITE BLOOD COUNT (AUTO) 7.9 K/uL (4.8-10.8)
[2019-07-11 22:23] LABS: INR 1.05 (0.85-1.15); PARTIAL THROMBOPLASTIN TIME 34.1 SEC (26.3-35.5); PROTHROMBIN TIME 11.3 SEC (9.6-11.6)
[2019-07-11 22:39] LABS: B-TYPE NATRIURETIC PEPTIDE 3500 pg/mL (0-100)
[2019-07-11 22:44] LABS: ALBUMIN 3.1 g/dL (3.5-5.0); BILIRUBIN,TOTAL 0.5 mg/dL (0.2-1.0); TOTAL PROTEIN, SERUM 7.6 g/dL (6.0-8.3)
[2019-07-11 22:53] LABS: CREATININE 15.3 mg/dL (0.5-1.5); POTASSIUM 6.8 mmol/L (3.5-5.1)
[2019-07-11] MEDS ORDERED: CALCIUM GLUCONATE 1 GM/10 ML VIAL IV ONE (23:18)
[2019-07-11] MEDS ORDERED: SODIUM POLYSTYRENE SULFONATE 15 GM/60 ML ML ONE ×2 (23:21)
[2019-07-11] MEDS ORDERED: INSULIN HUMULIN R 100 UNIT/ML 3ML ONE (23:44)
[2019-07-11] MEDS ORDERED: DEXTROSE 50%-WATER 50 ML DISP.SYRIN IV ONE (23:45)
[2019-07-12] VITALS (25 sets, daily range): BP systolic 132–222; BP diastolic 41–99
[2019-07-12] MEDS ORDERED: HYDRALAZINE HCL 20 MG/ML VIAL IV PRN (01:00)
[2019-07-12] MEDS ORDERED: LACTULOSE 20 GM/30 ML UDCUP PO PRN (01:00)
[2019-07-12] MEDS ORDERED: ACETAMINOPHEN 325 MG TAB PO PRN ×2 (01:00)
[2019-07-12] MEDS: ASPIRIN 325MG EC TAB 325 MG TABLET.DR PO SCH (02:34)
[2019-07-12] MEDS: ONDANSETRON HCL 4 MG/2 ML VIAL IV PRN ×3 (02:36→23:39)
--- NOTE | 2019-07-12 02:36 | NUR ---
PT STATES DID NOT BRING HER HOME MEDICATIONS
[2019-07-12] MEDS: HYDROMORPHONE 1 MG/1 ML AMP IVP PRN (02:58)
--- NOTE | 2019-07-12 04:26 | NUR ---
HD NURSE NOTIFIED, STATES THIS PATIENT WILL BE THE FIRST ONE ON THE LIST FOR HD TODAY DUE TO HER LAB WORK
[2019-07-12 05:24] LABS: BASOPHILS % (AUTO) 0.3 % (0.0-5.0); EOSINOPHILS % (AUTO) 0.9 % (0.0-8.0); HEMATOCRIT 23.2 % (36-48); LYMPHOCYTES % (AUTO) 4.6 % (21.0-51.0); MEAN CORPUSCULAR HEMOGLOBIN 27.8 pg (27.0-33.0); MEAN CORPUSCULAR HGB CONC 30.2 g/dL (32.0-36.0); MEAN CORPUSCULAR VOLUME 92.1 fL (79-99); MONOCYTES % (AUTO) 3.8 % (3.0-13.0); NEUTROPHILS % (AUTO) 89.5 % (40.0-77.0); PLATELET COUNT (AUTO) 191 K/uL (130-400); RED BLOOD CELL COUNT(AUTO) 2.52 MIL/uL (4.00-5.50); RED CELL DISTRIBUTION WIDTH 17.3 % (11.0-15.5); WHITE BLOOD COUNT (AUTO) 7.9 K/uL (4.8-10.8)
--- NOTE | 2019-07-12 05:43 | NUR ---
HD NURSE AWARE THAT THIS PATIENT IS HAVING SOME MORE LABOR BREATHING SATTING 92 % ON 2 LITERS,, STATED ZAIDA NURSE WOULD COME AND START HER SOON POSSIBLE
--- NOTE | 2019-07-12 05:53 | NUR ---
CALLEDGERMAN AGAIN BC I CANNOT GET A HOLD OF ZAIDA PT WITH WORSENING BREATHING STATED NURSE LIVES IN [place] AND IS PROBABLY GETTING GROOMED TO COME AJ MAGICIAN HELPER CALLED
[2019-07-12 06:12] LABS: POTASSIUM 6.9 mmol/L (3.5-5.1)
[2019-07-12 06:12] LABS: ABG BASE EXCESS -15.5 mmol/L (-2.0-3.0); ABG HCO3 13.5 mmol/L (21.0-28.0); ABG OXYGEN SATURATION 85.7 % (95.0-99.0); ABG PCO2 43 mmHg (32-45)
[2019-07-12 06:13] LABS: CREATININE 15.6 mg/dL (0.5-1.5)
[2019-07-12] MEDS ORDERED: IPRATROPIUM/ALBUTEROL SULFATE 3 ML SOLUTION IH ONE (06:19)
[2019-07-12] MEDS ORDERED: IPRATROPIUM/ALBUTEROL SULFATE 3 ML SOLUTION IH SCH (06:30)
[2019-07-12] MEDS ORDERED: DEXTROSE 50%-WATER 50 ML DISP.SYRIN IV ONE (06:37)
[2019-07-12] MEDS ORDERED: SODIUM BICARB 50MEQ 50ML VIAL ONE (06:37)
--- NOTE | 2019-07-12 06:40 | NUR ---
spoke with allan escobar form pulmonology orders in aware of pt's blood gases and full work up pending icu bed to transfer
[2019-07-12] MEDS ORDERED: PHARMACY COMMUNICATION MISC SCH (06:45)
[2019-07-12] MEDS ORDERED: CALCIUM GLUCONATE 1 GM/10 ML VIAL IV SCH (06:45)
[2019-07-12] MEDS ORDERED: SODIUM BICARB 50MEQ 50ML VIAL IV SCH (06:45)
[2019-07-12] MEDS ORDERED: DEXTROSE 50%-WATER 50 ML DISP.SYRIN IV SCH (06:45)
--- NOTE | 2019-07-12 06:50 | NUR ---
called report to ICU nurse full report given
[2019-07-12] MEDS: INSULIN HUMULIN R 100 UNIT/ML 3ML SQ SCH ×4 (06:52→20:44)
--- NOTE | 2019-07-12 07:00 | NUR ---
PT TRANSFER TO ICU, DIFFERENT TAKING CARE OF PATIENT GAVE FULL SBAR REPORT AT BED SIDE ALONG WITH PENDING ORDERS TO COMPLETE HD NURSE AT BEDSIDE , PT WITH SOME SOB RT AT BEDSIDE, PATIENT WILL START HD PT LETHARGIC, DENIES CHEST PAIN. PT'S CHART DROPPED ALONG WITH PT'S BELONGINGS TELEMETRY AWARE PATIENT WAS TRANSFERRED TO ICU
--- NOTE | 2019-07-12 07:15 | NUR ---
Received patient at 0715. Patient experiencing SOB at rest. Patient on BiPAP with stable vital signs. Peaked T-waves noted on bedside telemetry. Troponin so far negative. Serum K noted at 6.9, H/H 7 and 23.2 respectively. Will transfuse 1 unit PRBC with dialysis as soon as PRBC is ready from blood bank. Dialysis nurse setting up to dialyze patient. No other complaints offered by patient. Will continue to monitor.
[2019-07-12] MEDS ORDERED: SODIUM POLYSTYRENE SULFONATE 15 GM/60 ML ML PO SCH (07:22)
[2019-07-12] MEDS ORDERED: CALCIUM GLUCONATE 2 GM in SODIUM CHLORIDE 0.9% 100 ML IV SCH (07:30)
[2019-07-12] MEDS ORDERED: INSULIN GLARGINE 100 UNITS/ML 10 ML VIAL SQ SCH (07:30)
[2019-07-12] MEDS ORDERED: CALCIUM GLUCONATE 1 GM in SODIUM CHLORIDE 0.9% 50 ML IV SCH (07:45)
--- NOTE | 2019-07-12 07:45 | NUR ---
Kayexalate held as patient is actively receiving dialysis.
[2019-07-12] MEDS ORDERED: EPOETIN ALFA 10,000 UNIT/ML VIAL SQ SCH (09:15)
[2019-07-12] MEDS: AMLODIPINE BESYLATE 5 MG TAB PO SCH (10:00)
[2019-07-12] MEDS: METOPROLOL TARTRATE 25 MG TAB PO SCH ×2 (10:00→21:06)
[2019-07-12] MEDS: ASPIRIN 81MG TAB.CHEW PO SCH (10:00)
[2019-07-12] MEDS: FAMOTIDINE 20MG TAB 20 MG TAB PO SCH (10:00)
[2019-07-12 10:37] LABS: HEMATOCRIT 25.8 % (36-48)
[2019-07-12 10:52] LABS: ABG BASE EXCESS 4.9 mmol/L (-2.0-3.0); ABG HCO3 27.8 mmol/L (21.0-28.0); ABG OXYGEN SATURATION 99.8 % (95.0-99.0); ABG PCO2 36 mmHg (32-45)
--- NOTE | 2019-07-12 11:16 | NUR ---
DC PLAN PATIENT IN ICU INFO FROM PREVIOUS ADMISSION: Patient lives with spouse. Emergency contacts are sons, Francisco Scruggs, and Roque Scruggs, . Patient has no home services or DME. Patient is able to complete ADL's independently but does not drive. Family helps with transportation. PCP is Dr. Mcgill. Pharmacy is [facility] located on [address] in [place]. DCP is home Patient is on dialysis and was having dialysis at [facility] in [place] but had to stop going due to Legal Resident card. Outpatient dialysis arrangements were attempted during one of patients last admissions with [facility], but patient was not approved due to not being able to provide proof of updated residency. Patient continues to come to ER for dialysis as needed. Patient has been in the hospital multiple times: 06/25/2019-06/27/2019, 06/17/2019-06/19/2019; 06/07/2019-06/11/2019. Addendum: 07/12/19 at 1121 by GRISEL AVENDANO RN CM Amended: Links added.
[2019-07-12 12:08] LABS: CREATININE 5.8 mg/dL (0.5-1.5)
[2019-07-12 12:18] LABS: POTASSIUM 2.7 mmol/L (3.5-5.1)
[2019-07-12] MEDS ORDERED: LABETALOL HCL 100 MG TABLET PO ONE ×2 (12:30→13:30)
[2019-07-12] MEDS: IRON SUCROSE COMPLEX 100 MG in SODIUM CHLORIDE 0.9% 50 ML IV SCH (12:43)
[2019-07-12] MEDS: LABETALOL HCL 100 MG TABLET PO SCH (16:50)
[2019-07-12] MEDS: HYDRALAZINE HCL 25 MG TABLET PO SCH ×2 (17:00→21:07)
[2019-07-12] MEDS: LISINOPRIL 20 MG TABLET PO SCH (21:06)
[2019-07-12] MEDS: ATORVASTATIN CALCIUM 20 MG TABLET PO SCH (21:06)
[2019-07-13] VITALS (13 sets, daily range): BP systolic 101–178; BP diastolic 52–74
[2019-07-13] MEDS: ASPIRIN 325MG EC TAB 325 MG TABLET.DR PO SCH ×2 (01:30→23:17)
[2019-07-13 03:57] LABS: HEMATOCRIT 24.4 % (36-48); MEAN CORPUSCULAR HEMOGLOBIN 27.8 pg (27.0-33.0); MEAN CORPUSCULAR HGB CONC 31.6 g/dL (32.0-36.0); MEAN CORPUSCULAR VOLUME 88.1 fL (79-99); PLATELET COUNT (AUTO) 195 K/uL (130-400); RED BLOOD CELL COUNT(AUTO) 2.77 MIL/uL (4.00-5.50); RED CELL DISTRIBUTION WIDTH 16.8 % (11.0-15.5); WHITE BLOOD COUNT (AUTO) 8.5 K/uL (4.8-10.8)
[2019-07-13 04:10] LABS: PHOSPHORUS 9.2 mg/dL (2.5-4.9); POTASSIUM 3.5 mmol/L (3.5-5.1)
[2019-07-13 04:22] LABS: CREATININE 8.3 mg/dL (0.5-1.5)
[2019-07-13 04:27] LABS: B-TYPE NATRIURETIC PEPTIDE 1760 pg/mL (0-100)
[2019-07-13 04:32] LABS: BAND NEUTROPHILS % (MANUAL) 2 % (0-2); BASOPHILS % (MANUAL) 1 % (0-2); LYMPHOCYTES % (MANUAL) 3 % (22-44); MONOCYTES % (MANUAL) 6 % (2-9); SEGMENTED NEUTROPHILS % 88 % (40-70)
[2019-07-13 04:35] LABS: MAN.DIFF COMMENT-IMPRESSION MANUAL DIFFERENTIAL; PLATELET MORPHOLOGY COMMENT ADEQUATE
[2019-07-13] MEDS: INSULIN HUMULIN R 100 UNIT/ML 3ML SQ SCH ×4 (05:48→21:00)
[2019-07-13] MEDS: LABETALOL HCL 100 MG TABLET PO SCH ×2 (06:32→18:06)
[2019-07-13 07:29] LABS: ABG BASE EXCESS -0.2 mmol/L (-2.0-3.0); ABG OXYGEN SATURATION 95.6 % (95.0-99.0); ABG PCO2 43 mmHg (32-45)
[2019-07-13] MEDS: IRON SUCROSE COMPLEX 100 MG in SODIUM CHLORIDE 0.9% 50 ML IV SCH (09:00)
[2019-07-13] MEDS: ONDANSETRON HCL 4 MG/2 ML VIAL IV PRN (09:14)
[2019-07-13] MEDS: FAMOTIDINE 20MG TAB 20 MG TAB PO SCH (09:14)
[2019-07-13] MEDS: METOPROLOL TARTRATE 25 MG TAB PO SCH (09:14)
[2019-07-13] MEDS: ASPIRIN 81MG TAB.CHEW PO SCH (09:15)
[2019-07-13] MEDS: LISINOPRIL 20 MG TABLET PO SCH ×2 (09:15→19:34)
[2019-07-13] MEDS: AMLODIPINE BESYLATE 5 MG TAB PO SCH (09:15)
[2019-07-13] MEDS: HYDRALAZINE HCL 25 MG TABLET PO SCH ×4 (09:16→23:23)
--- NOTE | 2019-07-13 11:30 | NUR ---
Patient transferred to [facility] in stable condition. No complaints of CP, N/V, SOB. Report given to YORDAN Harrington
[2019-07-13] MEDS ORDERED: PHARMACY COMMUNICATION MISC SCH (13:45)
[2019-07-13] MEDS ORDERED: ALBUTEROL INHALER 90MCG/INH IH PRN (16:00)
[2019-07-13] MEDS ORDERED: ALBUTEROL SULFATE 0.083% 2.5 MG/3 ML INH IH PRN (16:45)
[2019-07-13] MEDS: HYDROMORPHONE 1 MG/1 ML AMP IVP PRN ×2 (18:04→22:33)
[2019-07-13] MEDS: CALCIUM ACETATE 667 MG CAPSULE PO SCH (18:06)
[2019-07-13] MEDS: EPOETIN ALFA 10,000 UNIT/ML VIAL SQ NR (18:07)
[2019-07-13] MEDS: MINOXIDIL 2.5 MG TAB PO SCH (19:33)
[2019-07-13] MEDS: ATORVASTATIN CALCIUM 20 MG TABLET PO SCH (19:34)
[2019-07-14 03:47] VITALS: BP 101/53
[2019-07-14 03:47] LABS: BASOPHILS % (AUTO) 0.4 % (0.0-5.0); EOSINOPHILS % (AUTO) 0.7 % (0.0-8.0); HEMATOCRIT 27.7 % (36-48); LYMPHOCYTES % (AUTO) 5.3 % (21.0-51.0); MEAN CORPUSCULAR HEMOGLOBIN 28.1 pg (27.0-33.0); MEAN CORPUSCULAR VOLUME 90.5 fL (79-99); MONOCYTES % (AUTO) 5.5 % (3.0-13.0); NEUTROPHILS % (AUTO) 87.6 % (40.0-77.0); PLATELET COUNT (AUTO) 185 K/uL (130-400); RED BLOOD CELL COUNT(AUTO) 3.06 MIL/uL (4.00-5.50); WHITE BLOOD COUNT (AUTO) 8.4 K/uL (4.8-10.8)
[2019-07-14 04:04] LABS: CREATININE 5.3 mg/dL (0.5-1.5); PHOSPHORUS 7.7 mg/dL (2.5-4.9); POTASSIUM 4.4 mmol/L (3.5-5.1)
[2019-07-14] MEDS: ONDANSETRON HCL 4 MG/2 ML VIAL IV PRN ×2 (04:32→12:18)
[2019-07-14] MEDS: HYDRALAZINE HCL 25 MG TABLET PO SCH ×3 (04:33→17:01)
[2019-07-14] MEDS: INSULIN HUMULIN R 100 UNIT/ML 3ML SQ SCH ×4 (04:33→20:30)
[2019-07-14 08:00] VITALS: BP 123/52
[2019-07-14] MEDS: LISINOPRIL 20 MG TABLET PO SCH ×2 (09:00→20:13)
[2019-07-14] MEDS: AMLODIPINE BESYLATE 5 MG TAB PO SCH (09:00)
[2019-07-14] MEDS: MINOXIDIL 2.5 MG TAB PO SCH (10:10)
[2019-07-14] MEDS: CALCIUM ACETATE 667 MG CAPSULE PO SCH ×3 (10:10→17:00)
[2019-07-14] MEDS: FAMOTIDINE 20MG TAB 20 MG TAB PO SCH (10:10)
[2019-07-14] MEDS: ASPIRIN 81MG TAB.CHEW PO SCH (10:10)
[2019-07-14] MEDS: LABETALOL HCL 100 MG TABLET PO SCH ×2 (10:11→16:12)
[2019-07-14 12:00] VITALS: BP 102/45
[2019-07-14] MEDS ORDERED: COMPOUND IV MISC 1 EACH IVSOLN MISC PRN (12:00)
[2019-07-14] MEDS: IRON SUCROSE COMPLEX 100 MG in SODIUM CHLORIDE 0.9% 50 ML IV SCH (12:18)
[2019-07-14] MEDS ORDERED: SODIUM CHLORIDE 0.9% 500ML 500 ML IV SCH (15:15)
[2019-07-14 16:00] VITALS: BP_SYST 113; BP_SYST 126; BP_SYST 130; BP_DIAS 57; BP_DIAS 58
[2019-07-14 19:35] VITALS: BP 92/43
--- NOTE | 2019-07-14 20:00 | NUR ---
PT PULLED IV OUT. NEW 22G RIGHT AC INSERTED. PT IS CONFUSED, DOES NOT FOLLOW COMMANDS.
[2019-07-14] MEDS: ATORVASTATIN CALCIUM 20 MG TABLET PO SCH (20:14)
[2019-07-14 23:41] VITALS: BP 139/54
[2019-07-15] MEDS: ASPIRIN 325MG EC TAB 325 MG TABLET.DR PO SCH (01:11)
--- NOTE | 2019-07-15 02:30 | NUR ---
PT ATTEMPTS TO PULL OUT IV AND GET OUT OF BED WITHOUT ASSISTANCE. STATES SHE FEELS TIRED AND THIRSTY, BUT INSISTS IN GETTING OUT OF BED.
[2019-07-15 03:32] VITALS: BP 127/60
[2019-07-15 04:14] LABS: HEMATOCRIT 25.5 % (36-48); MEAN CORPUSCULAR HGB CONC 32.2 g/dL (32.0-36.0); MEAN CORPUSCULAR VOLUME 90.1 fL (79-99); NUCLEATED RED BLOOD CELLS 0.4 % (0.0-0.19); PLATELET COUNT (AUTO) 235 K/uL (130-400); RED BLOOD CELL COUNT(AUTO) 2.83 MIL/uL (4.00-5.50); RED CELL DISTRIBUTION WIDTH 16.7 % (11.0-15.5); WHITE BLOOD COUNT (AUTO) 9.6 K/uL (4.8-10.8)
[2019-07-15 04:28] LABS: CREATININE 7.4 mg/dL (0.5-1.5); POTASSIUM 3.9 mmol/L (3.5-5.1)
[2019-07-15] MEDS: LABETALOL HCL 100 MG TABLET PO SCH ×2 (05:19→17:27)
[2019-07-15] MEDS: HYDRALAZINE HCL 25 MG TABLET PO SCH ×5 (05:19→23:05)
--- NOTE | 2019-07-15 05:19 | NUR ---
PT REFUSED BP MEDS AT THIS TIME. PT LAST BP 127/60. NO DISTRESS NOTED.
[2019-07-15 06:01] LABS: BAND NEUTROPHILS % (MANUAL) 2 % (0-2); LYMPHOCYTES % (MANUAL) 4 % (22-44); MAN.DIFF COMMENT-IMPRESSION MANUAL DIFFERENTIAL; MONOCYTES % (MANUAL) 2 % (2-9); REACTIVE LYMPHOCYTES 1 % (0-0); SEGMENTED NEUTROPHILS % 91 % (40-70)
[2019-07-15] MEDS: INSULIN HUMULIN R 100 UNIT/ML 3ML SQ SCH ×4 (06:01→21:19)
[2019-07-15 06:02] LABS: PLATELET MORPHOLOGY COMMENT ADEQUATE
[2019-07-15 08:00] VITALS: BP 157/67
[2019-07-15] MEDS: CALCIUM ACETATE 667 MG CAPSULE PO SCH ×3 (08:00→17:28)
[2019-07-15] MEDS: IRON SUCROSE COMPLEX 100 MG in SODIUM CHLORIDE 0.9% 50 ML IV SCH (08:57)
[2019-07-15] MEDS: AMLODIPINE BESYLATE 5 MG TAB PO SCH (08:57)
[2019-07-15] MEDS: LISINOPRIL 20 MG TABLET PO SCH ×2 (08:58→20:11)
[2019-07-15] MEDS: EPOETIN ALFA 10,000 UNIT/ML VIAL SQ NR (10:26)
[2019-07-15] MEDS: FAMOTIDINE 20MG TAB 20 MG TAB PO SCH (11:43)
[2019-07-15] MEDS: ASPIRIN 81MG TAB.CHEW PO SCH (11:43)
[2019-07-15 12:00] VITALS: BP 148/60
[2019-07-15 16:00] VITALS: BP 171/67
[2019-07-15 19:32] VITALS: BP 182/72
[2019-07-15] MEDS: ATORVASTATIN CALCIUM 20 MG TABLET PO SCH (20:11)
--- NOTE | 2019-07-15 21:00 | NUR ---
PT HAS SHOWN IMPROVEMENT. AAO3. ABLE TO TAKE MEDICATIONS. CONTROLLED BP. NOT REFUSING MEDICATIONS.
[2019-07-15 23:17] VITALS: BP 152/59
[2019-07-16] MEDS ORDERED: GUAIFENESIN SUGAR-FREE 100 MG/5 ML UDCUP ONE (02:11)
[2019-07-16 03:56] VITALS: BP 152/57
[2019-07-16 04:06] LABS: HEMATOCRIT 27.6 % (36-48); MEAN CORPUSCULAR HEMOGLOBIN 27.7 pg (27.0-33.0); MEAN CORPUSCULAR HGB CONC 30.8 g/dL (32.0-36.0); MEAN CORPUSCULAR VOLUME 89.9 fL (79-99); NUCLEATED RED BLOOD CELLS 1.6 % (0.0-0.19); PLATELET COUNT (AUTO) 265 K/uL (130-400); RED BLOOD CELL COUNT(AUTO) 3.07 MIL/uL (4.00-5.50); RED CELL DISTRIBUTION WIDTH 16.5 % (11.0-15.5); WHITE BLOOD COUNT (AUTO) 8.1 K/uL (4.8-10.8)
[2019-07-16 04:30] LABS: CREATININE 5.2 mg/dL (0.5-1.5); PHOSPHORUS 4.5 mg/dL (2.5-4.9); POTASSIUM 3.3 mmol/L (3.5-5.1)
[2019-07-16 05:31] LABS: EOSINOPHILS % (MANUAL) 1 % (1-6); LYMPHOCYTES % (MANUAL) 10 % (22-44); MONOCYTES % (MANUAL) 7 % (2-9); REACTIVE LYMPHOCYTES 1 % (0-0); SEGMENTED NEUTROPHILS % 81 % (40-70)
[2019-07-16 05:32] LABS: MAN.DIFF COMMENT-IMPRESSION MANUAL DIFFERENTIAL
[2019-07-16] MEDS: INSULIN HUMULIN R 100 UNIT/ML 3ML SQ SCH ×3 (05:36→16:30)
[2019-07-16] MEDS: HYDRALAZINE HCL 25 MG TABLET PO SCH ×3 (06:26→17:25)
[2019-07-16] MEDS: LABETALOL HCL 100 MG TABLET PO SCH ×2 (06:26→17:23)
[2019-07-16 07:36] VITALS: BP 154/58
[2019-07-16] MEDS: LISINOPRIL 20 MG TABLET PO SCH (08:50)
[2019-07-16] MEDS: ASPIRIN 81MG TAB.CHEW PO SCH (08:50)
[2019-07-16] MEDS: FAMOTIDINE 20MG TAB 20 MG TAB PO SCH (08:50)
[2019-07-16] MEDS: CALCIUM ACETATE 667 MG CAPSULE PO SCH ×3 (08:50→17:23)
[2019-07-16] MEDS: AMLODIPINE BESYLATE 5 MG TAB PO SCH (08:51)
[2019-07-16] MEDS: IRON SUCROSE COMPLEX 100 MG in SODIUM CHLORIDE 0.9% 50 ML IV SCH (08:51)
[2019-07-16 10:57] VITALS: BP 152/78
--- NOTE | 2019-07-16 11:51 | NUR ---
cm note spoke to pt and states that she is still pending to have her legal residency card updated, that has not been able to get this approved yet, instructed pt on importance of following up with required paperwork in order to facilitate her paperwork for dialysis. pt states was going to [facility], call made to Lizet at [facility], and states pt is not active with them.
[2019-07-16] MEDS ORDERED: Calcium Acetate PO (13:08)
[2019-07-16] MEDS ORDERED: ATOR20TA65 PO (13:08)
[2019-07-16 17:21] VITALS: BP 146/56
--- NOTE | 2019-07-16 17:45 | NUR ---
DISCHARGE INSTRUCTIONS GIVEN TO PATIENT AT BEDSIDE, AND PATIENTS HARRISON OVER THE PHONE. MADE AWARE OF NEED TO SCHEDULE FOLLOW UP APPOINTMENT WITH DR. VITAL IN 3-5 DAYS. AWARE OF NEW RX. PATIENT AT THIS TIME DENIES SHORTNESS OF BREATH OR CHEST PAIN. PATIENT AMBULATING IN ROOM, AAOX3, NO SIGNS AND SYMPTOMS OF DISTRESS NOTED. PATIENT WILL BE TRANSPORTED HOME BY SON. IV AND TELE REMOVED.
== END 2019-07-16 18:32 | disposition home or self-care (01) | DRG 291 ==
LOC: EDH 21:39 → EDHIP 07-12 00:55 → 3BH 07-12 01:49 → DAHIP 07-12 07:34 → 4AH 07-13 11:43
PROVIDERS: ADMIT Internal Medicine; ATTEND Internal Medicine
PROC: 30233N1 Transfusion of Nonautologous Red Blood Cells into Peripheral Vein, Percutaneous Approach (ICD-10-PCS; 2019-07-11)
PROC: 5A1D70Z Performance of Urinary Filtration, Intermittent, Less than 6 Hours Per Day (ICD-10-PCS; principal; 2019-07-12)
PROC: 5A09357 Assistance with Respiratory Ventilation, Less than 24 Consecutive Hours, Continuous Positive Airway Pressure (ICD-10-PCS; 2019-07-12)
PROC: 5A1D70Z Performance of Urinary Filtration, Intermittent, Less than 6 Hours Per Day (ICD-10-PCS; 2019-07-13)
PROC: 5A09357 Assistance with Respiratory Ventilation, Less than 24 Consecutive Hours, Continuous Positive Airway Pressure (ICD-10-PCS; 2019-07-13)
PROC: 5A1D70Z Performance of Urinary Filtration, Intermittent, Less than 6 Hours Per Day (ICD-10-PCS; 2019-07-15)
DX: I13.2 Hypertensive heart and chronic kidney disease with heart failure and with stage 5 chronic kidney disease, or end stage renal disease (principal); J96.01 Acute respiratory failure with hypoxia; N18.6 End stage renal disease; G93.41 Metabolic encephalopathy; I50.33 Acute on chronic diastolic (congestive) heart failure; E44.1 Mild protein-calorie malnutrition; J98.11 Atelectasis; E87.2 Acidosis; E87.5 Hyperkalemia; I42.9 Cardiomyopathy, unspecified; D64.9 Anemia, unspecified; E11.22 Type 2 diabetes mellitus with diabetic chronic kidney disease; E11.51 Type 2 diabetes mellitus with diabetic peripheral angiopathy without gangrene; D63.1 Anemia in chronic kidney disease; Z68.23 Body mass index [BMI] 23.0-23.9, adult; Z99.2 Dependence on renal dialysis; Z79.899 Other long term (current) drug therapy; Z91.15 Patient's noncompliance with renal dialysis; Z91.19 Patient's noncompliance with other medical treatment and regimen
CPT/HCPCS: 36415; 36430; 36600; 71045; 71250; 80048; 80053; 82550; 82803; 82948; 83735; 83880; 84100; 84484; 85014; 85018; 85025; 85610; 85730; 86156; 86850; 86870; 86900; 86901; 86922; 90935; 93005; 94640; 94660; 94664; 99291; G0378; J0360; J0610; J0885; J1170; J1756; J1815; J2405; J3490; J7040; J7070; P9016

== ENCOUNTER 2019-07-26 22:37 | Inpatient (IN) | payer OTHER ==
[~2019-07-26] VITALS: Ht 157.5 cm; Wt 56.9 kg
[~2019-07-26 22:37] MED LIST changes: +ATOR20TA65 PO; +Calcium Acetate PO
[2019-07-26 23:37] LABS: BASOPHILS % (AUTO) 0.2 % (0.0-5.0); EOSINOPHILS % (AUTO) 0.3 % (0.0-8.0); HEMATOCRIT 29.3 % (36-48); LYMPHOCYTES % (AUTO) 5.1 % (21.0-51.0); MEAN CORPUSCULAR HEMOGLOBIN 28.5 pg (27.0-33.0); MEAN CORPUSCULAR HGB CONC 31.4 g/dL (32.0-36.0); MEAN CORPUSCULAR VOLUME 90.7 fL (79-99); MONOCYTES % (AUTO) 8.8 % (3.0-13.0); NEUTROPHILS % (AUTO) 84.9 % (40.0-77.0); NUCLEATED RED BLOOD CELLS 0.6 % (0.0-0.19); PLATELET COUNT (AUTO) 313 K/uL (130-400); RED BLOOD CELL COUNT(AUTO) 3.23 MIL/uL (4.00-5.50); RED CELL DISTRIBUTION WIDTH 17.4 % (11.0-15.5); WHITE BLOOD COUNT (AUTO) 17.8 K/uL (4.8-10.8)
[2019-07-26 23:52] LABS: ALBUMIN 2.7 g/dL (3.5-5.0); BILIRUBIN,TOTAL 0.4 mg/dL (0.2-1.0); POTASSIUM 3.7 mmol/L (3.5-5.1); TOTAL PROTEIN, SERUM 7.5 g/dL (6.0-8.3)
[2019-07-27] LABS: CREATININE 8.1 mg/dL (0.5-1.5)
[2019-07-27 00:02] LABS: B-TYPE NATRIURETIC PEPTIDE 1730 pg/mL (0-100)
[2019-07-27 01:23] LABS: ABG BASE EXCESS 2.1 mmol/L (-2.0-3.0); ABG HCO3 27.9 mmol/L (21.0-28.0); ABG OXYGEN SATURATION 92.5 % (95.0-99.0); ABG PCO2 48 mmHg (32-45)
[2019-07-27] MEDS ORDERED: HYDRALAZINE HCL 20 MG/ML VIAL IV PRN (02:00)
[2019-07-27] MEDS ORDERED: ACETAMINOPHEN 325 MG TAB PO PRN (02:00)
[2019-07-27] MEDS ORDERED: LACTULOSE 20 GM/30 ML UDCUP PO PRN (02:00)
[2019-07-27] MEDS: FUROSEMIDE 10 MG/ML 2ML VIAL IV SCH (02:00)
[2019-07-27] MEDS ORDERED: ALBUTEROL SULFATE 0.083% 2.5 MG/3 ML INH IH ONE (02:22)
[2019-07-27] MEDS ORDERED: FUROSEMIDE 10 MG/ML 2ML VIAL ONE (02:51)
[2019-07-27 03:40] VITALS: BP 90/59
--- NOTE | 2019-07-27 04:00 | NUR ---
ADMIT PT ADMITTED TO ROOM 408, VERY LETHARGIC BUT AWAKENS WITH VERBAL AND TACTILE STIMULI. PLACED PT ON BED AND KEPT HOB ELEVATED. RT PLACED PT ON BIPAP. PCP IN AND V/S MONITORED, STABLE. ADMISSION CARE DONE. ADMISSION DATA BASE COMPLETED USING PREVIOUS MEDICAL RECORDS. PT IS A RE-ADMIT. IN FOR MORE CARE AND MANAGEMENT. Addendum: 07/27/19 at 6861 by BRAD GARCIA RN RN Amended: Links added.
[2019-07-27 04:48] LABS: BASOPHILS % (AUTO) 0.3 % (0.0-5.0); EOSINOPHILS % (AUTO) 0.3 % (0.0-8.0); HEMATOCRIT 26.1 % (36-48); LYMPHOCYTES % (AUTO) 5.7 % (21.0-51.0); MEAN CORPUSCULAR HEMOGLOBIN 28.5 pg (27.0-33.0); MEAN CORPUSCULAR HGB CONC 31.8 g/dL (32.0-36.0); MEAN CORPUSCULAR VOLUME 89.7 fL (79-99); NUCLEATED RED BLOOD CELLS 0.5 % (0.0-0.19); PLATELET COUNT (AUTO) 267 K/uL (130-400); RED BLOOD CELL COUNT(AUTO) 2.91 MIL/uL (4.00-5.50); RED CELL DISTRIBUTION WIDTH 17.4 % (11.0-15.5); WHITE BLOOD COUNT (AUTO) 16.8 K/uL (4.8-10.8)
[2019-07-27 05:03] LABS: POTASSIUM 3.7 mmol/L (3.5-5.1)
[2019-07-27 05:07] LABS: B-TYPE NATRIURETIC PEPTIDE 1350 pg/mL (0-100)
[2019-07-27 05:13] LABS: CREATININE 8.4 mg/dL (0.5-1.5)
[2019-07-27] MEDS ORDERED: CEFTRIAXONE SODIUM 1 GM IVP SCH (06:00)
[2019-07-27] MEDS ORDERED: AZITHROMYCIN 500MG+NS 250ML 250 ML IV SCH (06:00)
--- NOTE | 2019-07-27 06:17 | NUR ---
CONSULT PAGED DR ANN VIA ANSWERING SERVICE, CALLED BACK AND REFERRED CONSULT. NEW ORDERS GIVEN, PLEASE REFER TO CPOE. CALLED PT'S SON, KASHIF HERNANDEZ, TELEPHONE CONSENT TAKEN FOR HD. WITNESSED BY BANK CASHIER AND YORDAN CHEEMA. PLACED IN CHART. NEW ORDERS FOR IV ANTIBIOTICS NOTED, INFUSED. NASAL SWAB COLLECTED FOR RESPIRATORY PCR AND FLU, SENT TO LAB FOR ANALYSIS. NOTED PT DESATURATING TO 86-88% WITHOUT THE BIPAP. RE-POSITIONED PT IN BED WITH HOB ELEVATED. PLACED PT BACK ON BIPAP AND O2 SAT INCREASED TO 93%. FOR MORE CARE AND MANAGEMENT.
[2019-07-27] MEDS: IPRATROPIUM/ALBUTEROL SULFATE 3 ML SOLUTION IH SCH ×4 (06:18→23:50)
[2019-07-27] MEDS ORDERED: CEFTRIAXONE SODIUM 1 GM ONE (06:34)
[2019-07-27] MEDS ORDERED: AZITHROMYCIN 500MG+NS 250ML 250 ML IV ONE (06:35)
[2019-07-27] MEDS: INSULIN HUMULIN R 100 UNIT/ML 3ML SQ SCH ×4 (06:39→22:32)
[2019-07-27 07:36] VITALS: BP 117/65
[2019-07-27] MEDS: FAMOTIDINE 20MG TAB 20 MG TAB PO SCH (09:00)
[2019-07-27 10:30] VITALS: BP 118/60
--- NOTE | 2019-07-27 11:58 | NUR ---
[facility] CONSULT PATIENT ASSESSED REQUESTED: [facility] RECOMMENDATIONS SUBMITTED AND REPORT GIVEN TO PATIENT'S NURSE ABDULAZIZ. Addendum: 07/27/19 at 1200 by MUSA PHAN LVN LVN W Amended: Links added.
[2019-07-27] MEDS: ONDANSETRON HCL 4 MG/2 ML VIAL IV PRN (13:46)
--- NOTE | 2019-07-27 14:54 | NUR ---
RD NOTIFICATION Pt admitted with acute respiratory distress. Pt with ESRD on hemodialysis. Renal Dialysis diet order in place. Pt with breathing treatment at time of visit. Recommend continue Renal Dialysis Diet order Recommend 1500mL Fluid Restriction Dialysis and Heart Failure Nutrition Education left in Pt chart. RD to continue to monitor. Please notify as additional nutrition concerns arise. Thank you. Addendum: 07/27/19 at [address] Amended: Links added.
--- NOTE | 2019-07-27 15:01 | NUR ---
NUTRITION EDUCATION - HEART FAILURE, RENAL DIALYSIS DIET Pt with breathing treatment at time of visit. Nutrition education placed in Pt chart. RD to follow up. Addendum: 07/27/19 at [address] RD Amended: Links added.
[2019-07-27 15:34] VITALS: BP 139/62
--- NOTE | 2019-07-27 15:42 | NUR ---
PATIENT SEEN AT BEDSIDE - ON CPAP- VERY SHORT OF BREATH UNABLE TO GIVE COMPLETE SENTENCES. MEDICAL RECORD FROM PREVIOUS ADMISSION REVIEWED. SEE BELOWE- FORMING PROCESS LINE WORKER EXERPT FROM PREVIOUS ADMISSIOIN, WILL FOLLOW UP TO VERIFY IF ANY UPDATES Patient lives with spouse. Emergency contacts are sons, Francisco Scruggs, and Roque Scruggs, . Patient has no home services or DME. Patient is able to complete ADL's independently but does not drive. Family helps with transportation. PCP is Dr. Mcgill. Pharmacy is [facility] located on [address] in [place]. DCP is home Patient is on dialysis and was having dialysis at [facility] in [place] but had to stop going due to Legal Resident card. Outpatient dialysis arrangements were attempted during one of patients last admissions with [facility], but patient was not approved due to not being able to provide proof of updated residency. Patient continues to come to ER for dialysis as needed. Addendum: 07/27/19 at 1546 by MAUREEN PRETTY RN Amended: Links added.
[2019-07-27] MEDS ORDERED: VANCOMYCIN PROTOCOL PER PHARMACY IV SCH (16:30)
[2019-07-27] MEDS: ZOSYN 3.375GM+NS 50ML 50 ML IV SCH (18:33)
[2019-07-27 19:42] VITALS: BP 126/63
[2019-07-27 19:45] LABS: INR 1.07 (0.85-1.15); PARTIAL THROMBOPLASTIN TIME 34.3 SEC (26.3-35.5); PROTHROMBIN TIME 11.5 SEC (9.6-11.6)
[2019-07-27] MEDS ORDERED: VANCOMYCIN 1.25 GM in SODIUM CHLORIDE 0.9% 250 ML IV ONE (21:00)
[2019-07-27] MEDS: HONEY 1 APPL/ML TUBE TP SCH (21:22)
[2019-07-27 23:28] VITALS: BP 131/62
[2019-07-28] VITALS (8 sets, daily range): BP systolic 103–133; BP diastolic 45–67
[2019-07-28] MEDS: FUROSEMIDE 10 MG/ML 2ML VIAL IV SCH (02:00)
[2019-07-28 04:19] LABS: BASOPHILS % (AUTO) 0.3 % (0.0-5.0); EOSINOPHILS % (AUTO) 0.6 % (0.0-8.0); HEMATOCRIT 26.9 % (36-48); LYMPHOCYTES % (AUTO) 7.9 % (21.0-51.0); MEAN CORPUSCULAR HEMOGLOBIN 27.5 pg (27.0-33.0); MEAN CORPUSCULAR HGB CONC 30.5 g/dL (32.0-36.0); MEAN CORPUSCULAR VOLUME 90.3 fL (79-99); MONOCYTES % (AUTO) 9.1 % (3.0-13.0); NEUTROPHILS % (AUTO) 81.7 % (40.0-77.0); PLATELET COUNT (AUTO) 273 K/uL (130-400); RED BLOOD CELL COUNT(AUTO) 2.98 MIL/uL (4.00-5.50); RED CELL DISTRIBUTION WIDTH 17.8 % (11.0-15.5); WHITE BLOOD COUNT (AUTO) 11.3 K/uL (4.8-10.8)
[2019-07-28 04:34] LABS: ALBUMIN 2.3 g/dL (3.5-5.0); BILIRUBIN,TOTAL 0.5 mg/dL (0.2-1.0); CREATININE 5.6 mg/dL (0.5-1.5); PHOSPHORUS 5.7 mg/dL (2.5-4.9); POTASSIUM 3.9 mmol/L (3.5-5.1); TOTAL PROTEIN, SERUM 6.9 g/dL (6.0-8.3)
[2019-07-28 04:53] LABS: PLATELET MORPHOLOGY LARGE PLTS PRESENT
[2019-07-28] MEDS: INSULIN HUMULIN R 100 UNIT/ML 3ML SQ SCH ×4 (06:14→21:17)
[2019-07-28] MEDS: ZOSYN 3.375GM+NS 50ML 50 ML IV SCH ×2 (06:14→17:43)
[2019-07-28] MEDS: IPRATROPIUM/ALBUTEROL SULFATE 3 ML SOLUTION IH SCH ×4 (06:31→23:10)
[2019-07-28 08:11] LABS: HEPATITIS A ANTIBODY IGM Negative (Negative); HEPATITIS B CORE IGM Negative (Negative); HEPATITIS Bs ANTIGEN SCREEN P Negative (Negative)
[2019-07-28] MEDS: HEPARIN SODIUM 5000UNIT/ML 1ML VIAL SQ SCH (09:00)
[2019-07-28] MEDS: CALCIUM ACETATE 667 MG CAPSULE PO SCH ×2 (11:49→17:43)
[2019-07-28] MEDS: ACETAMINOPHEN 325 MG TAB PO PRN ×2 (14:28→21:22)
[2019-07-28] MEDS: FAMOTIDINE 20MG TAB 20 MG TAB PO SCH (14:28)
[2019-07-28] MEDS: AZITHROMYCIN 500MG+NS 250ML 250 ML IV SCH (14:29)
[2019-07-28] MEDS: HONEY 1 APPL/ML TUBE TP SCH (14:35)
[2019-07-28] MEDS: LABETALOL HCL 200 MG TABLET PO SCH (16:30)
[2019-07-28 16:41] LABS: APPEARANCE BODY FLUID BLOODY (CLEAR); BODY FLUID RBC 4675 /cu. mm.; BODY FLUID WBC 384 /cu. mm.; COLOR,BODY FLUID AMBER (LT YELLOW); SPECIMENTYPE,BODY FLUID PLEURAL; TOTAL VOLUME,BODY FLUID 1450 mL
[2019-07-28 16:44] LABS: BF LYMPHOCYTE 20 %; BF MESOTHELIAL 6 %; BF MONOCYTE 14 %
[2019-07-28] MEDS: ATORVASTATIN CALCIUM 20 MG TABLET PO SCH (20:13)
[2019-07-29] VITALS (7 sets, daily range): BP systolic 107–154; BP diastolic 49–76
[2019-07-29] MEDS: FUROSEMIDE 10 MG/ML 2ML VIAL IV SCH (02:00)
[2019-07-29] MEDS: ONDANSETRON HCL 4 MG/2 ML VIAL IV PRN (03:56)
[2019-07-29 04:29] LABS: BASOPHILS % (AUTO) 0.2 % (0.0-5.0); EOSINOPHILS % (AUTO) 0.6 % (0.0-8.0); HEMATOCRIT 29.7 % (36-48); LYMPHOCYTES % (AUTO) 6.5 % (21.0-51.0); MEAN CORPUSCULAR HEMOGLOBIN 27.4 pg (27.0-33.0); MEAN CORPUSCULAR HGB CONC 29.3 g/dL (32.0-36.0); MEAN CORPUSCULAR VOLUME 93.7 fL (79-99); NEUTROPHILS % (AUTO) 85.2 % (40.0-77.0); PLATELET COUNT (AUTO) 241 K/uL (130-400); RED BLOOD CELL COUNT(AUTO) 3.17 MIL/uL (4.00-5.50); RED CELL DISTRIBUTION WIDTH 17.9 % (11.0-15.5); WHITE BLOOD COUNT (AUTO) 12.4 K/uL (4.8-10.8)
[2019-07-29 05:08] LABS: ALBUMIN 2.3 g/dL (3.5-5.0); BILIRUBIN,TOTAL 0.5 mg/dL (0.2-1.0); CREATININE 4.1 mg/dL (0.5-1.5); POTASSIUM 4.3 mmol/L (3.5-5.1); TOTAL PROTEIN, SERUM 7.1 g/dL (6.0-8.3)
[2019-07-29] MEDS: ZOSYN 3.375GM+NS 50ML 50 ML IV SCH ×2 (05:18→18:17)
[2019-07-29] MEDS: LABETALOL HCL 200 MG TABLET PO SCH ×2 (05:18→16:30)
[2019-07-29] MEDS: INSULIN HUMULIN R 100 UNIT/ML 3ML SQ SCH ×4 (05:43→20:34)
[2019-07-29] MEDS: IPRATROPIUM/ALBUTEROL SULFATE 3 ML SOLUTION IH SCH ×4 (06:23→23:48)
[2019-07-29] MEDS: CALCIUM ACETATE 667 MG CAPSULE PO SCH ×3 (08:00→17:00)
[2019-07-29] MEDS: FAMOTIDINE 20MG TAB 20 MG TAB PO SCH (10:02)
[2019-07-29] MEDS: AZITHROMYCIN 500MG+NS 250ML 250 ML IV SCH (10:02)
[2019-07-29] MEDS: AMLODIPINE BESYLATE 5 MG TAB PO SCH (10:03)
[2019-07-29] MEDS: HEPARIN SODIUM 5000UNIT/ML 1ML VIAL SQ SCH (10:13)
[2019-07-29] MEDS ORDERED: LOPERAMIDE 1 MG/7.5 ML UDCUP PO PRN (13:45)
[2019-07-29] MEDS: HONEY 1 APPL/ML TUBE TP SCH (18:18)
[2019-07-29] MEDS: ATORVASTATIN CALCIUM 20 MG TABLET PO SCH (20:32)
[2019-07-29] MEDS ORDERED: INSULIN GLARGINE 100 UNITS/ML 10 ML VIAL SQ SCH (21:00)
[2019-07-30] MEDS: FUROSEMIDE 10 MG/ML 2ML VIAL IV SCH (01:50)
[2019-07-30 04:02] VITALS: BP 136/67
[2019-07-30] MEDS: ZOSYN 3.375GM+NS 50ML 50 ML IV SCH (05:11)
[2019-07-30 05:30] LABS: BASOPHILS % (AUTO) 0.5 % (0.0-5.0); EOSINOPHILS % (AUTO) 2.2 % (0.0-8.0); HEMATOCRIT 27.4 % (36-48); LYMPHOCYTES % (AUTO) 7.1 % (21.0-51.0); MEAN CORPUSCULAR HEMOGLOBIN 27.5 pg (27.0-33.0); MEAN CORPUSCULAR HGB CONC 29.6 g/dL (32.0-36.0); MEAN CORPUSCULAR VOLUME 92.9 fL (79-99); MONOCYTES % (AUTO) 7.5 % (3.0-13.0); NEUTROPHILS % (AUTO) 82.2 % (40.0-77.0); PLATELET COUNT (AUTO) 266 K/uL (130-400); RED BLOOD CELL COUNT(AUTO) 2.95 MIL/uL (4.00-5.50); RED CELL DISTRIBUTION WIDTH 17.9 % (11.0-15.5); WHITE BLOOD COUNT (AUTO) 10.6 K/uL (4.8-10.8)
[2019-07-30 05:51] LABS: ALBUMIN 2.2 g/dL (3.5-5.0); BILIRUBIN,TOTAL 0.5 mg/dL (0.2-1.0); POTASSIUM 4.2 mmol/L (3.5-5.1); TOTAL PROTEIN, SERUM 6.8 g/dL (6.0-8.3)
[2019-07-30] MEDS: IPRATROPIUM/ALBUTEROL SULFATE 3 ML SOLUTION IH SCH ×2 (06:34→11:11)
[2019-07-30] MEDS: ACETAMINOPHEN 325 MG TAB PO PRN (06:38)
[2019-07-30] MEDS: INSULIN HUMULIN R 100 UNIT/ML 3ML SQ SCH ×3 (06:48→16:39)
[2019-07-30 07:00] VITALS: BP 144/64
[2019-07-30] MEDS: LABETALOL HCL 200 MG TABLET PO SCH ×2 (07:30→16:34)
[2019-07-30] MEDS: CALCIUM ACETATE 667 MG CAPSULE PO SCH ×3 (08:00→16:34)
[2019-07-30] MEDS: AMLODIPINE BESYLATE 5 MG TAB PO SCH (09:00)
[2019-07-30] MEDS: HEPARIN SODIUM 5000UNIT/ML 1ML VIAL SQ SCH (09:00)
[2019-07-30] MEDS: FAMOTIDINE 20MG TAB 20 MG TAB PO SCH (09:00)
--- NOTE | 2019-07-30 09:00 | NUR ---
PATIENT RECEIVING HEMODIALYSIS TREATMENT AT BEDSIDE. HELD BP MEDS. PATIENT REFUSED PHOSLO AND PEPCID STATES SHE IS NAUSEOUS. REFUSED NAUSEA MEDICATION AT THIS TIME
[2019-07-30 11:00] VITALS: BP 121/61
--- NOTE | 2019-07-30 11:00 | NUR ---
IV TO LEFT AC CAME OUT. PATIENT REFUSING TO HAVE ANOTHER IV ACCESS PUT IN, STATES SHE IS GOING TO BE DISCHARGED TODAY. DR. HOUSTON MADE AWARE. STATED HE WILL BE IN LATER TODAY TO SEE PATIENT.
[2019-07-30] MEDS: AZITHROMYCIN 500MG+NS 250ML 250 ML IV SCH (12:16)
[2019-07-30] MEDS ORDERED: VANCOMYCIN 500MG+NS 100ML 100 ML IV SCH (13:00)
[2019-07-30 16:00] VITALS: BP 135/61
--- NOTE | 2019-07-30 18:07 | NUR ---
DISCHARGE INSTRUCTIONS GIVEN TO PATIENT. AWARE OF NEED TO FOLLOW UP WITH PCP, DR. ANN, AND DR. DELEON. PROVIDED WITH INFO TO SCHEDULE APPOINTMENTS NEXT BUSINESS DAY. NO NEW PRESCRIPTIONS GIVEN. PATIENT AT THIS TIME DENIES CHEST PAIN, DENIES SHORTNESS OF BREATH. AAOX3, ROOM AIR. EDUCATED ON WOUND CARE TO LEFT HEEL WELL LEFT FLANK THORACENTESIS SITE CARE. PATIENT VOICED UNDERSTANDING. TELE PACK REMOVED. PATIENT AWAITING FAMILY MEMBER TO PICK HER UP. ALL QUESTIONS ANSWERED
== END 2019-07-30 18:25 | disposition home or self-care (01) | DRG 193 ==
LOC: EDH 22:37 → EDHIP 07-27 01:47 → 4BH 07-27 03:51
PROVIDERS: ADMIT Internal Medicine; ATTEND Internal Medicine
PROC: 5A1D70Z Performance of Urinary Filtration, Intermittent, Less than 6 Hours Per Day (ICD-10-PCS; principal; 2019-07-27)
PROC: 5A09357 Assistance with Respiratory Ventilation, Less than 24 Consecutive Hours, Continuous Positive Airway Pressure (ICD-10-PCS; 2019-07-27)
PROC: 5A1D70Z Performance of Urinary Filtration, Intermittent, Less than 6 Hours Per Day (ICD-10-PCS; 2019-07-28)
PROC: 0W9B3ZZ Drainage of Left Pleural Cavity, Percutaneous Approach (ICD-10-PCS; 2019-07-28)
PROC: 5A09357 Assistance with Respiratory Ventilation, Less than 24 Consecutive Hours, Continuous Positive Airway Pressure (ICD-10-PCS; 2019-07-28)
PROC: 5A09357 Assistance with Respiratory Ventilation, Less than 24 Consecutive Hours, Continuous Positive Airway Pressure (ICD-10-PCS; 2019-07-29)
PROC: 5A1D70Z Performance of Urinary Filtration, Intermittent, Less than 6 Hours Per Day (ICD-10-PCS; 2019-07-30)
DX: J18.9 Pneumonia, unspecified organism (principal); N18.6 End stage renal disease; J96.01 Acute respiratory failure with hypoxia; J81.0 Acute pulmonary edema; I13.2 Hypertensive heart and chronic kidney disease with heart failure and with stage 5 chronic kidney disease, or end stage renal disease; I50.32 Chronic diastolic (congestive) heart failure; J91.8 Pleural effusion in other conditions classified elsewhere; D64.9 Anemia, unspecified; E11.22 Type 2 diabetes mellitus with diabetic chronic kidney disease; Y95 Nosocomial condition; R53.81 Other malaise; Z99.2 Dependence on renal dialysis; Z91.19 Patient's noncompliance with other medical treatment and regimen; Z83.3 Family history of diabetes mellitus; Z82.49 Family history of ischemic heart disease and other diseases of the circulatory system
CPT/HCPCS: 36415; 36600; 71045; 80048; 80053; 80074; 82550; 82803; 82948; 83605; 83615; 83880; 84100; 84157; 84484; 85025; 85610; 85730; 87040; 87071; 87076; 87205; 87633; 87804; 89051; 90935; 93005; 94640; 94660; 94664; G0378; J0456; J0696; J1644; J1815; J1940; J2405; J2543; J3370; J7050

== ENCOUNTER 2019-08-04 17:40 | Inpatient (IN) | payer OTHER ==
[~2019-08-04] VITALS: Ht 157.5 cm; Wt 52.2 kg
[2019-08-04 18:52] LABS: BASOPHILS % (AUTO) 0.3 % (0.0-5.0); EOSINOPHILS % (AUTO) 1.9 % (0.0-8.0); HEMATOCRIT 28.8 % (36-48); LYMPHOCYTES % (AUTO) 8.5 % (21.0-51.0); MEAN CORPUSCULAR HEMOGLOBIN 27.7 pg (27.0-33.0); MEAN CORPUSCULAR HGB CONC 30.6 g/dL (32.0-36.0); MEAN CORPUSCULAR VOLUME 90.6 fL (79-99); MONOCYTES % (AUTO) 6.2 % (3.0-13.0); PLATELET COUNT (AUTO) 412 K/uL (130-400); RED BLOOD CELL COUNT(AUTO) 3.18 MIL/uL (4.00-5.50); RED CELL DISTRIBUTION WIDTH 17.4 % (11.0-15.5); WHITE BLOOD COUNT (AUTO) 12.3 K/uL (4.8-10.8)
[2019-08-04 19:08] LABS: INR 0.99 (0.85-1.15); PARTIAL THROMBOPLASTIN TIME 31.1 SEC (26.3-35.5); PROTHROMBIN TIME 10.7 SEC (9.6-11.6)
[2019-08-04 19:13] LABS: ALBUMIN 2.5 g/dL (3.5-5.0); BILIRUBIN,TOTAL 0.3 mg/dL (0.2-1.0); POTASSIUM 5.9 mmol/L (3.5-5.1); TOTAL PROTEIN, SERUM 7.8 g/dL (6.0-8.3)
[2019-08-04 19:22] LABS: CREATININE 11.8 mg/dL (0.5-1.5)
[2019-08-04] MEDS ORDERED: ONDANSETRON HCL 4 MG/2 ML VIAL IV PRN (20:15)
[2019-08-04] MEDS ORDERED: DEXTROSE 50%-WATER 50 ML DISP.SYRIN IV PRN (20:45)
[2019-08-04] MEDS: CEFTRIAXONE SODIUM 1 GM IVP SCH (20:45)
[2019-08-04] MEDS ORDERED: GLUCAGON 1MG KIT 1 MG ML IM PRN (20:45)
[2019-08-04 21:29] LABS: ABG BASE EXCESS -0.4 mmol/L (-2.0-3.0); ABG HCO3 25.4 mmol/L (21.0-28.0); ABG OXYGEN SATURATION 89.5 % (95.0-99.0); ABG PCO2 47 mmHg (32-45)
[2019-08-04 23:38] VITALS: BP 132/71
[2019-08-05] VITALS (8 sets, daily range): BP systolic 127–172; BP diastolic 68–95
[2019-08-05 04:35] LABS: BASOPHILS % (AUTO) 0.4 % (0.0-5.0); EOSINOPHILS % (AUTO) 2.1 % (0.0-8.0); HEMATOCRIT 30.5 % (36-48); LYMPHOCYTES % (AUTO) 7.9 % (21.0-51.0); MEAN CORPUSCULAR HEMOGLOBIN 27.2 pg (27.0-33.0); MEAN CORPUSCULAR HGB CONC 29.5 g/dL (32.0-36.0); MEAN CORPUSCULAR VOLUME 92.1 fL (79-99); MONOCYTES % (AUTO) 5.7 % (3.0-13.0); NEUTROPHILS % (AUTO) 83.1 % (40.0-77.0); PLATELET COUNT (AUTO) 418 K/uL (130-400); RED BLOOD CELL COUNT(AUTO) 3.31 MIL/uL (4.00-5.50); RED CELL DISTRIBUTION WIDTH 17.6 % (11.0-15.5); WHITE BLOOD COUNT (AUTO) 11.8 K/uL (4.8-10.8)
[2019-08-05 05:07] LABS: B-TYPE NATRIURETIC PEPTIDE 2830 pg/mL (0-100)
[2019-08-05 05:14] LABS: ALBUMIN 2.6 g/dL (3.5-5.0); BILIRUBIN,TOTAL 0.3 mg/dL (0.2-1.0); CRP QUANTITATIVE 179.2 mg/L (0.00-9.0); TOTAL PROTEIN, SERUM 8.1 g/dL (6.0-8.3)
[2019-08-05 05:26] LABS: CREATININE 12.3 mg/dL (0.5-1.5); POTASSIUM 6.2 mmol/L (3.5-5.1)
[2019-08-05] MEDS: INSULIN HUMULIN R 100 UNIT/ML 3ML SQ SCH ×4 (06:00→16:43)
[2019-08-05 06:11] LABS: HEMOGLOBIN A1C 7.5 % (4.0-6.0)
[2019-08-05] MEDS ORDERED: SODIUM POLYSTYRENE SULFONATE 15 GM/60 ML ML PO SCH (07:13)
--- NOTE | 2019-08-05 07:45 | NUR ---
ASSESSMENT ENCOUNTERED PT A&OX3, AMBULATING FROM BATHROOM AND BACK TO BED, GAIT SLOW BUT STEADY WITH STAND BY ASSIST. DRESSING TO HEEL DRY AND INTACT, PT IS PENDING DIALYSIS. CALL LIGHT WITHIN REACH.
[2019-08-05] MEDS: CEFTRIAXONE SODIUM 1 GM IVP SCH (08:45)
[2019-08-05] MEDS: MORPHINE SULFATE 2 MG/ML 1ML SYG IVP PRN ×3 (08:54→21:22)
[2019-08-05] MEDS: FAMOTIDINE/PF 20 MG/2 ML VIAL IV SCH (09:00)
--- NOTE | 2019-08-05 10:24 | NUR ---
PATIENT SEEN AT BEDSIDE - ON CPAP- VERY SHORT OF BREATH UNABLE TO GIVE COMPLETE SENTENCES. MEDICAL RECORD FROM PREVIOUS ADMISSION REVIEWED. SEE BELOWE- DELIVERY MANAGER EXCERPT FROM PREVIOUS ADMISSION, WILL FOLLOW UP TO VERIFY IF ANY UPDATES Patient lives with spouse. Emergency contacts are sons, Francisco Scruggs, and Roque Scruggs, . Patient has no home services or DME. Patient is able to complete ADL's independently but does not drive. Family helps with transportation. PCP is Dr. Mcgill. Pharmacy is [facility] located on [facility] in [place]. DCP is home Patient is on dialysis and was having dialysis at [facility] [place] but had to stop going due to Legal Resident card. Outpatient dialysis arrangements were attempted during one of patients last admissions with [facility], but patient was not approved due to not being able to provide proof of updated residency. Patient continues to come to ER for dialysis as needed. Addendum: 08/05/19 at 1024 by GRISEL AVENDANO RN CM Amended: Links added.
[2019-08-05] MEDS ORDERED: VANCOMYCIN PROTOCOL PER PHARMACY IV SCH (11:15)
[2019-08-05] MEDS ORDERED: VANCOMYCIN 1GM+NS 250ML 250 ML IV SCH ×2 (11:45→12:45)
--- NOTE | 2019-08-05 12:00 | NUR ---
NOTE ARRIVED FROM ICU. R/O COVID. DENIES CHEST PAIN BUT SEEMS SOB WITH O2@100% NRB. SHE CAME IN WITH FLUID OVERLOAD. SHE IS A UNINSURED DIALYSIS PATIENT THAT COMES IN FOR EMERGENCY DIALYSIS WHEN SHE DEVELOPS OVERLOAD OR OTHER SYMPTOMS FROM NOT GETTING DIALYZED ON REGULAR BASIS. BBS RIGHT SIDE ABSENT AND LEFT LOWER ABSENT LEFT UPPER CLEAR. SHE HAS DRESSING TO RIGHT FOOT. WOUND CARE HAS BEEN ORDERED AND PICTURES TAKEN FOR WOUND TO RIGHT FOOT. SHE IS TO BE DIALYZED TODAY PER DR CARLINE TRUJILLO. RECEIVED REPORT FROM SKY FARR AND HE SAYS THERE HAS NOT BEEN A PULMONARY CONSULT.
--- NOTE | 2019-08-05 14:00 | NUR ---
NOTE DR ACOSTA HAS BEEN CONSULTED BY DR CROWLEY FOR PLEURAL EFFUSIONS. NAVEED Alejandre WITH DR ACOSTA INFORMED ME THAT HE WANTS TO DO THORACENTESIS AT BEDSIDE. WILL EVERYTHING PREPARED. WILL OBTAIN CONSENT FROM PATIENT. SHE IS ALREADY GETTING DIALYZED.
[2019-08-05] MEDS: CEFEPIME HCL 2 GM VIAL IVP SCH (18:12)
[2019-08-06] MEDS: MORPHINE SULFATE 2 MG/ML 1ML SYG IVP PRN ×3 (02:13→22:59)
[2019-08-06 03:59] VITALS: BP 137/77
[2019-08-06] MEDS ORDERED: ACETAMINOPHEN 325 MG TAB PO PRN (04:15)
[2019-08-06 05:46] LABS: BASOPHILS % (AUTO) 0.4 % (0.0-5.0); EOSINOPHILS % (AUTO) 1.5 % (0.0-8.0); HEMATOCRIT 33.1 % (36-48); LYMPHOCYTES % (AUTO) 10.7 % (21.0-51.0); MEAN CORPUSCULAR HGB CONC 29.9 g/dL (32.0-36.0); MEAN CORPUSCULAR VOLUME 90.4 fL (79-99); MONOCYTES % (AUTO) 6.3 % (3.0-13.0); NEUTROPHILS % (AUTO) 80.7 % (40.0-77.0); PLATELET COUNT (AUTO) 360 K/uL (130-400); RED BLOOD CELL COUNT(AUTO) 3.66 MIL/uL (4.00-5.50); RED CELL DISTRIBUTION WIDTH 17.2 % (11.0-15.5); WHITE BLOOD COUNT (AUTO) 9.9 K/uL (4.8-10.8)
[2019-08-06 05:59] LABS: INR 1.02 (0.85-1.15); PARTIAL THROMBOPLASTIN TIME 30.7 SEC (26.3-35.5)
[2019-08-06] MEDS: INSULIN HUMULIN R 100 UNIT/ML 3ML SQ SCH ×4 (06:00→18:00)
[2019-08-06 06:08] LABS: ALBUMIN 2.1 g/dL (3.5-5.0); BILIRUBIN,TOTAL 0.4 mg/dL (0.2-1.0); CREATININE 7.5 mg/dL (0.5-1.5); MAGNESIUM 2.2 mg/dL (1.80-2.40); POTASSIUM 5.3 mmol/L (3.5-5.1); TOTAL PROTEIN, SERUM 7.3 g/dL (6.0-8.3)
--- NOTE | 2019-08-06 06:33 | NUR ---
[facility] trough: 26.9 Faxed to Pharmacy with a call back from that dosage was already changed. Day shift RN , made aware.
[2019-08-06] MEDS ORDERED: VANCOMYCIN 750MG + NS 250 ML IV SCH ×2 (07:00)
[2019-08-06] MEDS ORDERED: COMPOUND IV REFRIGERATED 1 EACH IVSOLN MISC PRN (07:00)
[2019-08-06 07:30] VITALS: BP 138/73
[2019-08-06 11:00] VITALS: BP 119/64
[2019-08-06] MEDS: CALCIUM ACETATE 667 MG CAPSULE PO SCH ×2 (14:16→17:00)
[2019-08-06] MEDS: AMLODIPINE BESYLATE 5 MG TAB PO SCH (14:16)
[2019-08-06] MEDS: FAMOTIDINE/PF 20 MG/2 ML VIAL IV SCH (14:17)
[2019-08-06] MEDS: LABETALOL HCL 200 MG TABLET PO SCH ×2 (14:17→21:43)
[2019-08-06 16:00] VITALS: BP 122/67
[2019-08-06] MEDS: CEFEPIME HCL 2 GM VIAL IVP SCH (16:17)
[2019-08-06 20:00] VITALS: BP 151/62
[2019-08-06] MEDS: ATORVASTATIN CALCIUM 20 MG TABLET PO SCH (21:43)
[2019-08-07] VITALS: BP 103/55
[2019-08-07 04:00] VITALS: BP 119/58
[2019-08-07 05:26] LABS: BASOPHILS % (AUTO) 0.4 % (0.0-5.0); EOSINOPHILS % (AUTO) 1.3 % (0.0-8.0); LYMPHOCYTES % (AUTO) 8.9 % (21.0-51.0); MEAN CORPUSCULAR HEMOGLOBIN 27.1 pg (27.0-33.0); MEAN CORPUSCULAR HGB CONC 29.7 g/dL (32.0-36.0); MEAN CORPUSCULAR VOLUME 91.2 fL (79-99); MONOCYTES % (AUTO) 8.3 % (3.0-13.0); NEUTROPHILS % (AUTO) 80.7 % (40.0-77.0); PLATELET COUNT (AUTO) 330 K/uL (130-400); RED CELL DISTRIBUTION WIDTH 16.9 % (11.0-15.5); WHITE BLOOD COUNT (AUTO) 9.8 K/uL (4.8-10.8)
[2019-08-07] MEDS: INSULIN HUMULIN R 100 UNIT/ML 3ML SQ SCH ×5 (05:41→23:47)
[2019-08-07 05:48] LABS: B-TYPE NATRIURETIC PEPTIDE 1690 pg/mL (0-100)
[2019-08-07 06:02] LABS: BILIRUBIN,TOTAL 0.6 mg/dL (0.2-1.0); CREATININE 5.5 mg/dL (0.5-1.5); MAGNESIUM 2.1 mg/dL (1.80-2.40); PHOSPHORUS 8.8 mg/dL (2.5-4.9); POTASSIUM 4.6 mmol/L (3.5-5.1); TOTAL PROTEIN, SERUM 6.9 g/dL (6.0-8.3)
[2019-08-07 08:00] VITALS: BP 142/58
[2019-08-07 08:48] LABS: ABG BASE EXCESS 1.6 mmol/L (-2.0-3.0); ABG OXYGEN SATURATION 94.2 % (95.0-99.0); ABG PCO2 45 mmHg (32-45)
[2019-08-07] MEDS: CALCIUM ACETATE 667 MG CAPSULE PO SCH ×3 (09:24→17:00)
[2019-08-07] MEDS: FAMOTIDINE/PF 20 MG/2 ML VIAL IV SCH (09:25)
[2019-08-07] MEDS: CEFEPIME HCL 2 GM VIAL IVP SCH (09:26)
[2019-08-07 12:00] VITALS: BP 139/60
[2019-08-07] MEDS: AMLODIPINE BESYLATE 5 MG TAB PO SCH (13:59)
[2019-08-07] MEDS: LABETALOL HCL 200 MG TABLET PO SCH ×2 (13:59→23:44)
[2019-08-07 16:00] VITALS: BP 120/52
--- NOTE | 2019-08-07 19:08 | NUR ---
PT CARE Order verified, pt identified and right pleural chest tube discontinued per routine. Pt tolerated without discomfort. Dry gauze/tegaderm drsg applied to site post removal. Pt placed in position of comfort. Needed items placed within reach. No complaints voiced by pt post removal of CT. Endorsed to primary nurse.
[2019-08-07 19:40] VITALS: BP 145/60
[2019-08-07] MEDS: ATORVASTATIN CALCIUM 20 MG TABLET PO SCH (23:44)
[2019-08-08] VITALS (7 sets, daily range): BP systolic 126–161; BP diastolic 44–70
[2019-08-08 06:13] LABS: BASOPHILS % (AUTO) 0.4 % (0.0-5.0); HEMATOCRIT 31.1 % (36-48); LYMPHOCYTES % (AUTO) 7.4 % (21.0-51.0); MEAN CORPUSCULAR HEMOGLOBIN 27.4 pg (27.0-33.0); MEAN CORPUSCULAR HGB CONC 29.9 g/dL (32.0-36.0); MEAN CORPUSCULAR VOLUME 91.5 fL (79-99); MONOCYTES % (AUTO) 7.7 % (3.0-13.0); PLATELET COUNT (AUTO) 313 K/uL (130-400); RED CELL DISTRIBUTION WIDTH 16.7 % (11.0-15.5); WHITE BLOOD COUNT (AUTO) 9.6 K/uL (4.8-10.8)
[2019-08-08 06:40] LABS: ALBUMIN 2.2 g/dL (3.5-5.0); BILIRUBIN,TOTAL 0.5 mg/dL (0.2-1.0); CREATININE 4.4 mg/dL (0.5-1.5); POTASSIUM 3.9 mmol/L (3.5-5.1); TOTAL PROTEIN, SERUM 7.6 g/dL (6.0-8.3)
[2019-08-08] MEDS: CEFEPIME HCL 2 GM VIAL IVP SCH (08:14)
[2019-08-08] MEDS: FAMOTIDINE/PF 20 MG/2 ML VIAL IV SCH (08:14)
[2019-08-08] MEDS: LABETALOL HCL 200 MG TABLET PO SCH ×2 (08:14→20:04)
[2019-08-08] MEDS: AMLODIPINE BESYLATE 5 MG TAB PO SCH (08:14)
[2019-08-08] MEDS: CALCIUM ACETATE 667 MG CAPSULE PO SCH ×3 (08:14→16:55)
[2019-08-08] MEDS ORDERED: PROMETHAZINE HCL 25 MG/ML 1ML AMPULE IM PRN (14:45)
[2019-08-08] MEDS: MORPHINE SULFATE 2 MG/ML 1ML SYG IVP PRN (15:02)
[2019-08-08] MEDS: INSULIN HUMULIN R 100 UNIT/ML 3ML SQ SCH ×2 (16:30→20:22)
[2019-08-08] MEDS: ATORVASTATIN CALCIUM 20 MG TABLET PO SCH (20:04)
[2019-08-09 04:24] VITALS: BP 144/65
[2019-08-09] MEDS: INSULIN HUMULIN R 100 UNIT/ML 3ML SQ SCH ×2 (04:38→11:30)
[2019-08-09 05:52] LABS: MEAN CORPUSCULAR HEMOGLOBIN 27.3 pg (27.0-33.0); MEAN CORPUSCULAR VOLUME 90.9 fL (79-99); PLATELET COUNT (AUTO) 315 K/uL (130-400); WHITE BLOOD COUNT (AUTO) 10.2 K/uL (4.8-10.8)
[2019-08-09 06:01] LABS: CREATININE 6.3 mg/dL (0.5-1.5); POTASSIUM 4.1 mmol/L (3.5-5.1)
[2019-08-09 06:19] LABS: EOSINOPHILS % (MANUAL) 5 % (1-6); LYMPHOCYTES % (MANUAL) 13 % (22-44); MONOCYTES % (MANUAL) 8 % (2-9); SEGMENTED NEUTROPHILS % 74 % (40-70)
[2019-08-09 06:20] LABS: MAN.DIFF COMMENT-IMPRESSION MANUAL DIFFERENTIAL; PLATELET MORPHOLOGY COMMENT ADEQUATE
[2019-08-09 07:18] VITALS: BP 175/69
[2019-08-09] MEDS: LABETALOL HCL 200 MG TABLET PO SCH (08:29)
[2019-08-09] MEDS: AMLODIPINE BESYLATE 5 MG TAB PO SCH (08:29)
[2019-08-09] MEDS: FAMOTIDINE/PF 20 MG/2 ML VIAL IV SCH (08:29)
[2019-08-09] MEDS: CALCIUM ACETATE 667 MG CAPSULE PO SCH ×2 (08:30→13:20)
[2019-08-09] MEDS ORDERED: CEFEPIME HCL 1 GM VIAL IVP SCH (09:00)
[2019-08-09 11:17] VITALS: BP 107/53
--- NOTE | 2019-08-09 11:40 | NUR ---
dialysis PT IS RESTING COMFORTABLY AND IS BEING DIALYZED.
--- NOTE | 2019-08-09 16:20 | NUR ---
D/C PT WILL BE LEAVING VIA WHEELCHAIR INSTRUCTIONS GIVEN TO PATIENT AND SON HARRISON. PT IS A/A X 3 WITH NO COMPLICATIONS UPON D/C. PT IS AWARE TO FU WITH PCP IN 3 DAYS, PULMONOLOGY 1-2 WEEKS, NEPHROLOGY 1 WEEK
== END 2019-08-09 16:45 | disposition home or self-care (01) | DRG 291 ==
LOC: EDH 17:40 → EDHIP 20:05 → 2DH 22:05 → 3BH 08-05 11:38
PROVIDERS: ADMIT Internal Medicine; ATTEND Internal Medicine
PROC: 5A1D70Z Performance of Urinary Filtration, Intermittent, Less than 6 Hours Per Day (ICD-10-PCS; 2019-08-05)
PROC: 5A1D70Z Performance of Urinary Filtration, Intermittent, Less than 6 Hours Per Day (ICD-10-PCS; 2019-08-06)
PROC: 0W9930Z Drainage of Right Pleural Cavity with Drainage Device, Percutaneous Approach (ICD-10-PCS; principal; 2019-08-07)
PROC: 5A1D70Z Performance of Urinary Filtration, Intermittent, Less than 6 Hours Per Day (ICD-10-PCS; 2019-08-07)
PROC: 5A1D70Z Performance of Urinary Filtration, Intermittent, Less than 6 Hours Per Day (ICD-10-PCS; 2019-08-09)
DX: I13.2 Hypertensive heart and chronic kidney disease with heart failure and with stage 5 chronic kidney disease, or end stage renal disease (principal); N18.6 End stage renal disease; J96.01 Acute respiratory failure with hypoxia; I50.33 Acute on chronic diastolic (congestive) heart failure; J18.9 Pneumonia, unspecified organism; L97.409 Non-pressure chronic ulcer of unspecified heel and midfoot with unspecified severity; N17.9 Acute kidney failure, unspecified; J81.1 Chronic pulmonary edema; E11.52 Type 2 diabetes mellitus with diabetic peripheral angiopathy with gangrene; I96 Gangrene, not elsewhere classified; E87.70 Fluid overload, unspecified; Z99.2 Dependence on renal dialysis; E11.22 Type 2 diabetes mellitus with diabetic chronic kidney disease; E87.5 Hyperkalemia; D64.9 Anemia, unspecified; E11.51 Type 2 diabetes mellitus with diabetic peripheral angiopathy without gangrene; E11.621 Type 2 diabetes mellitus with foot ulcer; E78.5 Hyperlipidemia, unspecified; Y95 Nosocomial condition; Z79.899 Other long term (current) drug therapy; Z83.3 Family history of diabetes mellitus; Z91.19 Patient's noncompliance with other medical treatment and regimen; Z20.828 Contact with and (suspected) exposure to other viral communicable diseases; Z82.49 Family history of ischemic heart disease and other diseases of the circulatory system; Z98.891 History of uterine scar from previous surgery
CPT/HCPCS: 36415; 36600; 71045; 80048; 80053; 80061; 80202; 82435; 82550; 82728; 82803; 82947; 82948; 83036; 83605; 83615; 83735; 83880; 84100; 84132; 84145; 84295; 84484; 85018; 85025; 85378; 85610; 85730; 86140; 87040; 87486; 87581; 87633; 87798; 87804; 90935; 93005; 99291; C1751; G0378; J0692; J2405; J2550; J3370; J3490; J7050

== ENCOUNTER 2019-08-12 13:28 | Inpatient (IN) | payer OTHER ==
[~2019-08-12] VITALS: Ht 157.5 cm; Wt 52.8 kg
[2019-08-12 15:01] LABS: BASOPHILS % (AUTO) 0.6 % (0.0-5.0); EOSINOPHILS % (AUTO) 2.5 % (0.0-8.0); HEMATOCRIT 27.6 % (36-48); LYMPHOCYTES % (AUTO) 10.6 % (21.0-51.0); MEAN CORPUSCULAR HEMOGLOBIN 27.3 pg (27.0-33.0); MEAN CORPUSCULAR HGB CONC 30.1 g/dL (32.0-36.0); MEAN CORPUSCULAR VOLUME 90.8 fL (79-99); MONOCYTES % (AUTO) 5.9 % (3.0-13.0); NEUTROPHILS % (AUTO) 79.2 % (40.0-77.0); PLATELET COUNT (AUTO) 300 K/uL (130-400); RED BLOOD CELL COUNT(AUTO) 3.04 MIL/uL (4.00-5.50); WHITE BLOOD COUNT (AUTO) 13.7 K/uL (4.8-10.8)
[2019-08-12 15:16] LABS: INR 0.99 (0.85-1.15); PARTIAL THROMBOPLASTIN TIME 31.3 SEC (26.3-35.5); PROTHROMBIN TIME 10.7 SEC (9.6-11.6)
[2019-08-12 15:23] LABS: ALBUMIN 2.3 g/dL (3.5-5.0); BILIRUBIN,TOTAL 0.4 mg/dL (0.2-1.0); POTASSIUM 4.7 mmol/L (3.5-5.1); TOTAL PROTEIN, SERUM 7.8 g/dL (6.0-8.3)
[2019-08-12 15:27] LABS: CREATININE 9.6 mg/dL (0.5-1.5)
[2019-08-12 15:42] LABS: B-TYPE NATRIURETIC PEPTIDE 1870 pg/mL (0-100)
[2019-08-12] MEDS ORDERED: HYDRALAZINE HCL 20 MG/ML VIAL IV PRN (18:45)
[2019-08-12] MEDS ORDERED: ACETAMINOPHEN 325 MG TAB PO PRN ×2 (18:45)
[2019-08-12] MEDS ORDERED: ONDANSETRON HCL 4 MG/2 ML VIAL IV PRN (18:45)
[2019-08-12] MEDS ORDERED: LACTULOSE 20 GM/30 ML UDCUP PO PRN (18:45)
[2019-08-12] MEDS ORDERED: ENOXAPARIN SODIUM 30 MG/0.3 ML SQ ONE (20:29)
--- NOTE | 2019-08-13 03:30 | NUR ---
ADMISSION 0330 RECEIVED REPORT FROM ABDULAZIZ KWAN RN 0410 PT ADMIT FROM ED RM 401 NO MEDS AT BEDSIDE ADMISSION DATABASE COMPLETE. PT NO DISTRESS AT THIS TIME WILL CONTINUE TO MONITOR
[2019-08-13 04:16] VITALS: BP 147/73
[2019-08-13 05:22] LABS: HEMATOCRIT 31.1 % (36-48); MEAN CORPUSCULAR HGB CONC 29.9 g/dL (32.0-36.0); MEAN CORPUSCULAR VOLUME 90.1 fL (79-99); RED BLOOD CELL COUNT(AUTO) 3.45 MIL/uL (4.00-5.50); RED CELL DISTRIBUTION WIDTH 16.7 % (11.0-15.5); WHITE BLOOD COUNT (AUTO) 10.1 K/uL (4.8-10.8)
[2019-08-13 05:39] LABS: CREATININE 6.3 mg/dL (0.5-1.5); POTASSIUM 4.1 mmol/L (3.5-5.1)
[2019-08-13 08:00] VITALS: BP 149/70
[2019-08-13] MEDS ORDERED: ENOXAPARIN SODIUM 30 MG/0.3 ML SQ SCH (09:00)
[2019-08-13] MEDS ORDERED: FAMOTIDINE 20MG TAB 20 MG TAB PO SCH (09:00)
[2019-08-13 11:18] VITALS: BP 158/74
--- NOTE | 2019-08-13 12:49 | NUR ---
PT IS FREQUENT READMISSION FOR COMPASSIONATE HD. NO CHANGES TO LAST ADMISSION. LIVES WITH SPOUSE. SEEN BY [facility] FOR ULCER TO RIGHT HEEL, PATIENT STATES AGREEABLE TO FOLLOW UP WITH [facility] ON DISCHARGE. CALL TO SATNAM ARCHIBALD OF SAME - ORDER RECD Addendum: 08/13/19 at 1253 by MAUREEN PRETTY RN CM Amended: Links added.
--- NOTE | 2019-08-13 13:25 | NUR ---
[facility] consult Patient assessed as ordered. [facility] recommendations submitted. Patient is in agreement to follow up at [facility] upon discharge. Addendum: 08/13/19 at 1326 by NAS PHILIP RN/ Amended: Links added.
--- NOTE | 2019-08-13 16:10 | NUR ---
INSTRUCTIONS DISCHARGE INSTRUCTIONS GIVEN TO PATIENT USING TEACH BACK. IV WAS REMOVED AND SITE COVERED WITH A BAND-AID. SHE HAS BEEN DIALYZED AND IS FEELING MUCH BETTER. NO NEW PRESCRIPTIONS. ALL MD INSTRUCTIONS WERE PRINTED AND PLACED IN DISCHARGE PACKET. NO QUESTIONS OR CONCERNS VOICED. PENDING RIDE HOME.
== END 2019-08-13 16:53 | disposition home or self-care (01) | DRG 640 ==
LOC: EDH 13:28 → EDHIP 13:29 → 4AH 08-13 03:56
PROVIDERS: ADMIT Internal Medicine; ATTEND Internal Medicine
PROC: 5A1D70Z Performance of Urinary Filtration, Intermittent, Less than 6 Hours Per Day (ICD-10-PCS; principal; 2019-08-12)
PROC: 5A1D70Z Performance of Urinary Filtration, Intermittent, Less than 6 Hours Per Day (ICD-10-PCS; 2019-08-13)
DX: E87.70 Fluid overload, unspecified (principal); J81.0 Acute pulmonary edema; N18.6 End stage renal disease; N17.9 Acute kidney failure, unspecified; I12.0 Hypertensive chronic kidney disease with stage 5 chronic kidney disease or end stage renal disease; E11.22 Type 2 diabetes mellitus with diabetic chronic kidney disease; E78.5 Hyperlipidemia, unspecified; D64.9 Anemia, unspecified; Z99.2 Dependence on renal dialysis; Z83.3 Family history of diabetes mellitus; Z82.49 Family history of ischemic heart disease and other diseases of the circulatory system
CPT/HCPCS: 36415; 71045; 80048; 80053; 82550; 82948; 83880; 84484; 85025; 85027; 85610; 85730; 90935; 93005; G0378; J1650

== ENCOUNTER 2019-08-19 15:55 | Inpatient (IN) | payer OTHER ==
[~2019-08-19] VITALS: Ht 157.5 cm; Wt 49.7 kg
[2019-08-19 17:48] LABS: BASOPHILS % (AUTO) 0.5 % (0.0-5.0); EOSINOPHILS % (AUTO) 0.5 % (0.0-8.0); HEMATOCRIT 26.5 % (36-48); LYMPHOCYTES % (AUTO) 9.3 % (21.0-51.0); MEAN CORPUSCULAR HEMOGLOBIN 27.2 pg (27.0-33.0); MEAN CORPUSCULAR HGB CONC 30.9 g/dL (32.0-36.0); MEAN CORPUSCULAR VOLUME 87.7 fL (79-99); MONOCYTES % (AUTO) 5.5 % (3.0-13.0); NEUTROPHILS % (AUTO) 83.1 % (40.0-77.0); PLATELET COUNT (AUTO) 345 K/uL (130-400); RED BLOOD CELL COUNT(AUTO) 3.02 MIL/uL (4.00-5.50); RED CELL DISTRIBUTION WIDTH 16.1 % (11.0-15.5); WHITE BLOOD COUNT (AUTO) 13.2 K/uL (4.8-10.8)
[2019-08-19 18:01] LABS: PARTIAL THROMBOPLASTIN TIME 33.7 SEC (26.3-35.5); PROTHROMBIN TIME 10.8 SEC (9.6-11.6)
[2019-08-19 18:07] LABS: ALBUMIN 2.2 g/dL (3.5-5.0); BILIRUBIN,TOTAL 0.3 mg/dL (0.2-1.0); POTASSIUM 4.9 mmol/L (3.5-5.1); TOTAL PROTEIN, SERUM 7.9 g/dL (6.0-8.3)
[2019-08-19 18:08] LABS: CREATININE 14.6 mg/dL (0.5-1.5)
[2019-08-19] MEDS ORDERED: GLUCAGON 1MG KIT 1 MG ML IM PRN (21:45)
[2019-08-19] MEDS ORDERED: ACETAMINOPHEN 325 MG TAB PO PRN ×2 (21:45)
[2019-08-19] MEDS ORDERED: DEXTROSE 50%-WATER 50 ML DISP.SYRIN IV PRN (21:45)
[2019-08-19 23:05] VITALS: BP 131/66
--- NOTE | 2019-08-19 23:15 | NUR ---
admit note admit to room 314 via w/c from er. patient awake, alert, ox3, no sob, no c/o pain, left arm avg positive bruit and thrill, teach patient plan of care and expected outcome, patient verbalizes understanding via teach back
[2019-08-20] MEDS: CEFTRIAXONE SODIUM 1 GM IVP SCH ×2 (00:06→13:12)
[2019-08-20 04:00] VITALS: BP 128/56
[2019-08-20 04:20] LABS: BASOPHILS % (AUTO) 0.4 % (0.0-5.0); EOSINOPHILS % (AUTO) 1.2 % (0.0-8.0); HEMATOCRIT 24.9 % (36-48); LYMPHOCYTES % (AUTO) 8.9 % (21.0-51.0); MEAN CORPUSCULAR HGB CONC 31.3 g/dL (32.0-36.0); MEAN CORPUSCULAR VOLUME 86.2 fL (79-99); MONOCYTES % (AUTO) 6.1 % (3.0-13.0); NEUTROPHILS % (AUTO) 82.2 % (40.0-77.0); PLATELET COUNT (AUTO) 313 K/uL (130-400); RED BLOOD CELL COUNT(AUTO) 2.89 MIL/uL (4.00-5.50); RED CELL DISTRIBUTION WIDTH 16.1 % (11.0-15.5); WHITE BLOOD COUNT (AUTO) 13.1 K/uL (4.8-10.8)
[2019-08-20 05:00] LABS: ALBUMIN 1.9 g/dL (3.5-5.0); BILIRUBIN,TOTAL 0.5 mg/dL (0.2-1.0); POTASSIUM 5.9 mmol/L (3.5-5.1); TOTAL PROTEIN, SERUM 7.6 g/dL (6.0-8.3)
[2019-08-20 05:10] LABS: CREATININE 14.9 mg/dL (0.5-1.5)
[2019-08-20] MEDS: INSULIN HUMULIN R 100 UNIT/ML 3ML SQ SCH ×4 (06:02→20:43)
[2019-08-20 08:30] VITALS: BP 135/67
[2019-08-20] MEDS ORDERED: LIDOCAINE 2%-EPI 1:200,000 20 ML VIAL IJ SCH (09:30)
--- NOTE | 2019-08-20 11:00 | NUR ---
PATIENT SEEN AT BEDSIDE, CHART REVIEWED FROM PREVIOUS ADMITS- EXCERPT FROM [employer] NOTES BELOW FROOM PREVIOUS ADMISSION- ASKED PATIENT IF ANY CHANGES, DENIED Patient lives with spouse. Emergency contacts are sons, Francisco Scruggs, and Roque Scruggs, . Patient is able to complete ADL's independently but does not drive. Family helps with transportation. PCP is Dr. Mcgill. Pharmacy is [facility] located on [facility] in [place]. DCP is home Patient was having dialysis at [facility] in [place] but had to stop going due to Legal Resident card. Outpatient dialysis arrangements were attempted during one of patients last admissions with [facility], but patient was not approved due to not being able to provide proof of updated residency. Patient continues to come to ER for dialysis as needed. Addendum: 08/20/19 at 1903 by MAUREEN PRETTY RN CM Amended: Links added.
--- NOTE | 2019-08-20 13:00 | NUR ---
thoracentesis on pt's left back performed by dr garrett; approx. 1500cc of cloudy clear fluid removed; samples collected and sent to lab. site of insertion appears normal with no edema or redness noted after proc. will cont to monitor.; stat cxr ordered for evaluation. pt shows no sob at this time.
[2019-08-20] MEDS: FAMOTIDINE/PF 20 MG/2 ML VIAL IV SCH (13:12)
[2019-08-20 13:37] VITALS: BP 98/56
--- NOTE | 2019-08-20 15:12 | NUR ---
NUTRITION EDUCATION Pt pending Thoracentesis, Dialysis at time of screen. Diabetes/Dialysis/Wound Healing Nutrition education placed in Pt chart. REGINALD to follow up. Addendum: 08/20/19 at [address] Amended: Links added.
--- NOTE | 2019-08-20 15:18 | NUR ---
RD NOTIFICATION Pt admitted with CKD Exacerbation, Lg Pleural Effusion. Renal Dialysis diet order in place. Altered renal labs, elevated BG levels. Pt pending thoracentesis at time of screen. Pt with R-Heel Ulcer. Recommend add 75gm CCD. Recommend add Reece BID, 500mg Vit C (QD), 220mg ZnSO4 (QD) for wound healing support. Recommend 30mL ProMod QLunch. Nutrition education placed in Pt chart. RD to continue to monitor. Please notify as additional nutrition concerns arise. Thank you. Addendum: 08/20/19 at [address] Amended: Links added.
[2019-08-20] MEDS ORDERED: HYDROMORPHONE HCL 2 MG/ML VIAL IVP ONE (15:30)
[2019-08-20 15:54] LABS: APPEARANCE BODY FLUID SLIGHTLY CLOUDY (CLEAR); BODY FLUID RBC 485 /cu. mm.; BODY FLUID WBC 290 /cu. mm.; COLOR,BODY FLUID YELLOW (LT YELLOW); SPECIMENTYPE,BODY FLUID PLEURAL; TOTAL VOLUME,BODY FLUID 1350 mL
[2019-08-20 16:18] LABS: BF LYMPHOCYTE 15 %; BF MESOTHELIAL 4 %; BF MONOCYTE 1 %
[2019-08-20] MEDS ORDERED: LABETALOL HCL 100 MG TABLET PO SCH (16:30)
[2019-08-20] MEDS: LABETALOL HCL 200 MG TABLET PO SCH (16:30)
[2019-08-20] MEDS ORDERED: HYDROMORPHONE HCL 0.5 MG/0.5 ML ML ONE (16:38)
[2019-08-20] MEDS: CALCIUM ACETATE 667 MG CAPSULE PO SCH (16:44)
[2019-08-20 17:12] VITALS: BP 139/74
[2019-08-20] MEDS: ONDANSETRON HCL 4 MG/2 ML VIAL IV PRN (18:50)
[2019-08-20 19:49] VITALS: BP 137/66
[2019-08-20] MEDS: ATORVASTATIN CALCIUM 20 MG TABLET PO SCH (20:34)
[2019-08-20 23:32] VITALS: BP 121/68
[2019-08-21] MEDS: CEFTRIAXONE SODIUM 1 GM IVP SCH ×3 (00:13→23:57)
[2019-08-21] MEDS: HYDROCODONE/ACETAMINOPHEN 5/325 MG TAB PO PRN (03:06)
[2019-08-21 04:00] VITALS: BP 130/67
[2019-08-21 05:40] LABS: BASOPHILS % (AUTO) 0.4 % (0.0-5.0); EOSINOPHILS % (AUTO) 1.8 % (0.0-8.0); MEAN CORPUSCULAR HGB CONC 30.7 g/dL (32.0-36.0); MEAN CORPUSCULAR VOLUME 87.9 fL (79-99); MONOCYTES % (AUTO) 7.2 % (3.0-13.0); NEUTROPHILS % (AUTO) 79.9 % (40.0-77.0); PLATELET COUNT (AUTO) 318 K/uL (130-400); RED BLOOD CELL COUNT(AUTO) 3.07 MIL/uL (4.00-5.50); WHITE BLOOD COUNT (AUTO) 9.5 K/uL (4.8-10.8)
[2019-08-21 05:58] LABS: PHOSPHORUS 6.8 mg/dL (2.5-4.9); POTASSIUM 4.6 mmol/L (3.5-5.1); TOTAL PROTEIN, SERUM 7.2 g/dL (6.0-8.3)
[2019-08-21 06:05] LABS: CREATININE 8.1 mg/dL (0.5-1.5)
[2019-08-21] MEDS: INSULIN HUMULIN R 100 UNIT/ML 3ML SQ SCH ×4 (06:32→21:00)
[2019-08-21 07:15] LABS: HEPATITIS A ANTIBODY IGM Negative (Negative); HEPATITIS B CORE IGM Negative (Negative); HEPATITIS Bs ANTIGEN SCREEN P Negative (Negative)
[2019-08-21] MEDS: ONDANSETRON HCL 4 MG/2 ML VIAL IV PRN ×2 (07:48→23:57)
[2019-08-21 08:00] VITALS: BP 134/60
[2019-08-21] MEDS: CALCIUM ACETATE 667 MG CAPSULE PO SCH ×3 (08:00→17:00)
[2019-08-21] MEDS ORDERED: AMLODIPINE BESYLATE 5 MG TAB PO SCH (09:00)
[2019-08-21 12:00] VITALS: BP 138/74
[2019-08-21] MEDS: FAMOTIDINE/PF 20 MG/2 ML VIAL IV SCH (12:38)
[2019-08-21] MEDS: LABETALOL HCL 200 MG TABLET PO SCH ×2 (12:38→16:30)
[2019-08-21] MEDS: AMLODIPINE BESYLATE 5 MG TAB PO SCH ×2 (15:27→21:21)
[2019-08-21 16:00] VITALS: BP 158/73
--- NOTE | 2019-08-21 19:35 | NUR ---
patient took noon labetalol at 1630 due to being nauseated earlier. next dose due at 1600 was too soon to give .
[2019-08-21 19:45] VITALS: BP 106/54
[2019-08-21] MEDS: ATORVASTATIN CALCIUM 20 MG TABLET PO SCH (21:21)
[2019-08-21 23:37] VITALS: BP 136/66
[2019-08-22 03:43] VITALS: BP 129/53
[2019-08-22 06:16] LABS: CREATININE 5.2 mg/dL (0.5-1.5); MAGNESIUM 2.1 mg/dL (1.80-2.40); POTASSIUM 4.2 mmol/L (3.5-5.1)
[2019-08-22] MEDS: ONDANSETRON HCL 4 MG/2 ML VIAL IV PRN ×2 (06:17→11:34)
[2019-08-22] MEDS: INSULIN HUMULIN R 100 UNIT/ML 3ML SQ SCH ×4 (06:17→21:00)
[2019-08-22] MEDS: LABETALOL HCL 200 MG TABLET PO SCH ×2 (07:30→13:44)
[2019-08-22 07:58] VITALS: BP 108/42
[2019-08-22] MEDS: CALCIUM ACETATE 667 MG CAPSULE PO SCH ×3 (08:00→17:00)
[2019-08-22] MEDS: FAMOTIDINE/PF 20 MG/2 ML VIAL IV SCH (08:51)
[2019-08-22 11:27] LABS: ALBUMIN 2.1 g/dL (3.5-5.0); BILIRUBIN,DIRECT 0.1 mg/dL (0.0-0.3); BILIRUBIN,TOTAL 0.4 mg/dL (0.2-1.0); TOTAL PROTEIN, SERUM 7.6 g/dL (6.0-8.3)
[2019-08-22] MEDS: CEFTRIAXONE SODIUM 1 GM IVP SCH (11:34)
[2019-08-22 12:00] VITALS: BP 173/62
[2019-08-22] MEDS: AMLODIPINE BESYLATE 5 MG TAB PO SCH ×2 (13:44→21:12)
[2019-08-22 16:00] VITALS: BP 125/69
[2019-08-22 20:04] VITALS: BP 151/66
[2019-08-22] MEDS: ATORVASTATIN CALCIUM 20 MG TABLET PO SCH (21:12)
[2019-08-22] MEDS ORDERED: ZOSYN 3.375GM+NS 50ML 50 ML IV ONE (23:17)
[2019-08-23 00:04] VITALS: BP 157/56
[2019-08-23] MEDS: ONDANSETRON HCL 4 MG/2 ML VIAL IV PRN ×2 (03:19→13:35)
[2019-08-23 04:28] VITALS: BP 135/61
[2019-08-23] MEDS: INSULIN HUMULIN R 100 UNIT/ML 3ML SQ SCH ×4 (05:55→20:30)
[2019-08-23 05:58] LABS: BASOPHILS % (AUTO) 0.6 % (0.0-5.0); EOSINOPHILS % (AUTO) 3.2 % (0.0-8.0); HEMATOCRIT 30.8 % (36-48); LYMPHOCYTES % (AUTO) 9.8 % (21.0-51.0); MEAN CORPUSCULAR HEMOGLOBIN 27.1 pg (27.0-33.0); MEAN CORPUSCULAR HGB CONC 30.2 g/dL (32.0-36.0); MEAN CORPUSCULAR VOLUME 89.8 fL (79-99); MONOCYTES % (AUTO) 7.1 % (3.0-13.0); NEUTROPHILS % (AUTO) 78.4 % (40.0-77.0); PLATELET COUNT (AUTO) 337 K/uL (130-400); RED BLOOD CELL COUNT(AUTO) 3.43 MIL/uL (4.00-5.50); RED CELL DISTRIBUTION WIDTH 15.9 % (11.0-15.5); WHITE BLOOD COUNT (AUTO) 10.1 K/uL (4.8-10.8)
[2019-08-23 06:20] LABS: ALBUMIN 2.5 g/dL (3.5-5.0); BILIRUBIN,DIRECT 0.1 mg/dL (0.0-0.3); BILIRUBIN,TOTAL 0.4 mg/dL (0.2-1.0); POTASSIUM 4.3 mmol/L (3.5-5.1); TOTAL PROTEIN, SERUM 8.5 g/dL (6.0-8.3)
[2019-08-23] MEDS: LABETALOL HCL 200 MG TABLET PO SCH ×2 (07:02→17:10)
[2019-08-23] MEDS: CALCIUM ACETATE 667 MG CAPSULE PO SCH ×3 (07:42→17:11)
[2019-08-23] MEDS: FAMOTIDINE/PF 20 MG/2 ML VIAL IV SCH (08:27)
[2019-08-23] MEDS: AMLODIPINE BESYLATE 5 MG TAB PO SCH ×2 (08:27→20:33)
[2019-08-23 08:46] VITALS: BP 125/48
[2019-08-23] MEDS: ZOSYN 3.375GM+NS 50ML 50 ML IV SCH ×2 (10:59→22:59)
[2019-08-23 11:41] VITALS: BP 139/74
--- NOTE | 2019-08-23 15:04 | NUR ---
TO [facility] PATIENT TRANSFERRED TO NUCLEAR MEDICINE FOR HIDA SCAN IN STABLE CONDITION VIA WHEELCHAIR.
[2019-08-23] MEDS ORDERED: MAG HYDROX/AL HYDROX/SIMETH ES 30 ML SUSP UDCUP PO PRN (17:45)
[2019-08-23 20:00] VITALS: BP 165/63
[2019-08-23] MEDS: ATORVASTATIN CALCIUM 20 MG TABLET PO SCH (20:33)
[2019-08-23] MEDS: HYDROCODONE/ACETAMINOPHEN 5/325 MG TAB PO PRN (20:34)
[2019-08-23 23:58] VITALS: BP 139/76
[2019-08-24] MEDS: HYDROCODONE/ACETAMINOPHEN 5/325 MG TAB PO PRN (00:38)
[2019-08-24 03:35] VITALS: BP 104/57
[2019-08-24 05:37] LABS: HEMATOCRIT 31.3 % (36-48); MEAN CORPUSCULAR HEMOGLOBIN 26.4 pg (27.0-33.0); MEAN CORPUSCULAR HGB CONC 29.7 g/dL (32.0-36.0); MEAN CORPUSCULAR VOLUME 88.9 fL (79-99); PLATELET COUNT (AUTO) 320 K/uL (130-400); RED BLOOD CELL COUNT(AUTO) 3.52 MIL/uL (4.00-5.50); WHITE BLOOD COUNT (AUTO) 9.8 K/uL (4.8-10.8)
[2019-08-24] MEDS: INSULIN HUMULIN R 100 UNIT/ML 3ML SQ SCH ×2 (05:50→11:32)
[2019-08-24 06:08] LABS: CREATININE 5.8 mg/dL (0.5-1.5); POTASSIUM 4.4 mmol/L (3.5-5.1)
[2019-08-24 06:15] LABS: BAND NEUTROPHILS % (MANUAL) 2 % (0-2); BASOPHILS % (MANUAL) 1 % (0-2); EOSINOPHILS % (MANUAL) 2 % (1-6); LYMPHOCYTES % (MANUAL) 8 % (22-44); MAN.DIFF COMMENT-IMPRESSION MANUAL DIFFERENTIAL; MONOCYTES % (MANUAL) 4 % (2-9); PLATELET MORPHOLOGY COMMENT ADEQUATE; REACTIVE LYMPHOCYTES 1 % (0-0); SEGMENTED NEUTROPHILS % 82 % (40-70)
[2019-08-24] MEDS: CALCIUM ACETATE 667 MG CAPSULE PO SCH ×2 (08:15→11:32)
[2019-08-24] MEDS: AMLODIPINE BESYLATE 5 MG TAB PO SCH (08:15)
[2019-08-24] MEDS: FAMOTIDINE/PF 20 MG/2 ML VIAL IV SCH (08:15)
[2019-08-24 08:32] VITALS: BP 133/72
[2019-08-24] MEDS: ZOSYN 3.375GM+NS 50ML 50 ML IV SCH (10:52)
--- NOTE | 2019-08-24 11:00 | NUR ---
ANTICIPATING DC TODAY - CARDIO CLEARING1 Addendum: 08/24/19 at 1624 by MAUREEN PRETTY RN CM Amended: Links added.
[2019-08-24 11:03] VITALS: BP 146/65
--- NOTE | 2019-08-24 15:26 | NUR ---
INSTRUCTIONS DISCHARGE INSTRUCTIONS GIVEN TO PATIENT USING TEACH BACK. NO F/U APPOINTMENT MADE. NO NEW PRESCRIPTIONS. PATIENT IS WORKING ON GETTING HER PERMANENT RESIDENT ALIEN CARD SO THAT SHE MAY QUALIFY FOR DIALYSIS AGAIN. NO QUESTIONS OR CONCERNS VOICED. IV REMOVED WITH TIP INTACT. DIRECT PRESSURE APPLIED UNTIL BLEEDING CONTROLLED THEN SITE COVERED WITH GAUZE AND SECURED WITH A BAND-AID.
== END 2019-08-24 15:35 | disposition home or self-care (01) | DRG 682 ==
LOC: EDH 15:55 → EDHIP 21:40 → 3CH 22:28
PROVIDERS: ADMIT Internal Medicine; ATTEND Internal Medicine
PROC: 5A1D70Z Performance of Urinary Filtration, Intermittent, Less than 6 Hours Per Day (ICD-10-PCS; principal; 2019-08-19)
PROC: 5A1D70Z Performance of Urinary Filtration, Intermittent, Less than 6 Hours Per Day (ICD-10-PCS; 2019-08-20)
PROC: 0W9B3ZZ Drainage of Left Pleural Cavity, Percutaneous Approach (ICD-10-PCS; 2019-08-20)
PROC: 5A1D70Z Performance of Urinary Filtration, Intermittent, Less than 6 Hours Per Day (ICD-10-PCS; 2019-08-21)
PROC: 5A1D70Z Performance of Urinary Filtration, Intermittent, Less than 6 Hours Per Day (ICD-10-PCS; 2019-08-23)
DX: N17.9 Acute kidney failure, unspecified (principal); J96.01 Acute respiratory failure with hypoxia; I50.33 Acute on chronic diastolic (congestive) heart failure; I13.2 Hypertensive heart and chronic kidney disease with heart failure and with stage 5 chronic kidney disease, or end stage renal disease; E11.52 Type 2 diabetes mellitus with diabetic peripheral angiopathy with gangrene; J98.11 Atelectasis; L97.419 Non-pressure chronic ulcer of right heel and midfoot with unspecified severity; I96 Gangrene, not elsewhere classified; J91.8 Pleural effusion in other conditions classified elsewhere; K80.00 Calculus of gallbladder with acute cholecystitis without obstruction; N18.6 End stage renal disease; Z20.828 Contact with and (suspected) exposure to other viral communicable diseases; D63.8 Anemia in other chronic diseases classified elsewhere; D72.829 Elevated white blood cell count, unspecified; E11.22 Type 2 diabetes mellitus with diabetic chronic kidney disease; E11.621 Type 2 diabetes mellitus with foot ulcer; E78.5 Hyperlipidemia, unspecified; H54.40 Blindness, one eye, unspecified eye; Z99.2 Dependence on renal dialysis; Z91.15 Patient's noncompliance with renal dialysis; Z91.19 Patient's noncompliance with other medical treatment and regimen; Z82.3 Family history of stroke; Z83.3 Family history of diabetes mellitus; Z84.1 Family history of disorders of kidney and ureter; Z82.49 Family history of ischemic heart disease and other diseases of the circulatory system
CPT/HCPCS: 32554; 36415; 71045; 73630; 73718; 76705; 78226; 80048; 80053; 80074; 80076; 82550; 82945; 82948; 83615; 83735; 83986; 84100; 84145; 84155; 84157; 84484; 85025; 85610; 85730; 87071; 87116; 87205; 87206; 89051; 90935; 93005; 93925; A9537; C1729; G0378; J0696; J1170; J1815; J2405; J2543; J3490

== ENCOUNTER 2019-09-01 11:41 | Inpatient (IN) | payer OTHER ==
[2019-09-01] VITALS (20 sets, daily range): BP systolic 148–207; BP diastolic 41–97
[~2019-09-01] VITALS: Ht 157.5 cm; Wt 52.3 kg
[2019-09-01 13:18] LABS: BASOPHILS % (AUTO) 0.4 % (0.0-5.0); EOSINOPHILS % (AUTO) 1.3 % (0.0-8.0); HEMATOCRIT 24.2 % (36-48); LYMPHOCYTES % (AUTO) 7.7 % (21.0-51.0); MEAN CORPUSCULAR HEMOGLOBIN 27.2 pg (27.0-33.0); MEAN CORPUSCULAR VOLUME 87.7 fL (79-99); MONOCYTES % (AUTO) 5.8 % (3.0-13.0); NEUTROPHILS % (AUTO) 84.1 % (40.0-77.0); PLATELET COUNT (AUTO) 259 K/uL (130-400); RED BLOOD CELL COUNT(AUTO) 2.76 MIL/uL (4.00-5.50); RED CELL DISTRIBUTION WIDTH 16.6 % (11.0-15.5); WHITE BLOOD COUNT (AUTO) 13.4 K/uL (4.8-10.8)
[2019-09-01 13:37] LABS: ALBUMIN 2.4 g/dL (3.5-5.0); BILIRUBIN,TOTAL 0.3 mg/dL (0.2-1.0)
[2019-09-01 13:46] LABS: CREATININE 16.9 mg/dL (0.5-1.5); POTASSIUM 7.1 mmol/L (3.5-5.1)
[2019-09-01] MEDS ORDERED: CALCIUM GLUCONATE 1 GM/10 ML VIAL IV ONE (14:43)
[2019-09-01] MEDS ORDERED: INSULIN HUMULIN R 100 UNIT/ML 3ML ONE (14:44)
[2019-09-01] MEDS ORDERED: SODIUM BICARB 50MEQ 50ML VIAL ONE (14:44)
[2019-09-01] MEDS ORDERED: DEXTROSE 5%-WATER 50 ML IV ONE (14:45)
[2019-09-01] MEDS ORDERED: ALBUTEROL SULFATE 0.083% 2.5 MG/3 ML INH IH ONE (14:47)
[2019-09-01 16:49] LABS: MAGNESIUM 2.7 mg/dL (1.80-2.40); PHOSPHORUS 9.8 mg/dL (2.5-4.9)
[2019-09-01] MEDS ORDERED: SODIUM POLYSTYRENE SULFONATE 15 GM/60 ML ML PO SCH (17:00)
[2019-09-01 17:16] LABS: % IRON SATURATION 38.7 % (22-44)
[2019-09-02] VITALS (43 sets, daily range): BP systolic 98–207; BP diastolic 48–136
[2019-09-02] MEDS: AMLODIPINE BESYLATE 5 MG TAB PO SCH ×4 (00:14→20:35)
[2019-09-02] MEDS: LABETALOL HCL 100 MG TABLET PO SCH ×4 (00:16→20:35)
[2019-09-02] MEDS ORDERED: ONDANSETRON HCL 4 MG/2 ML VIAL ONE (00:25)
[2019-09-02] MEDS: HYDRALAZINE HCL 20 MG/ML VIAL IV PRN ×2 (00:30→06:28)
[2019-09-02 05:36] LABS: BASOPHILS % (AUTO) 0.4 % (0.0-5.0); EOSINOPHILS % (AUTO) 0.8 % (0.0-8.0); HEMATOCRIT 24.4 % (36-48); LYMPHOCYTES % (AUTO) 5.2 % (21.0-51.0); MEAN CORPUSCULAR HGB CONC 31.1 g/dL (32.0-36.0); MEAN CORPUSCULAR VOLUME 86.5 fL (79-99); NEUTROPHILS % (AUTO) 87.9 % (40.0-77.0); PLATELET COUNT (AUTO) 261 K/uL (130-400); RED BLOOD CELL COUNT(AUTO) 2.82 MIL/uL (4.00-5.50); RED CELL DISTRIBUTION WIDTH 16.3 % (11.0-15.5); WHITE BLOOD COUNT (AUTO) 12.1 K/uL (4.8-10.8)
[2019-09-02 06:07] LABS: CREATININE 7.8 mg/dL (0.5-1.5); MAGNESIUM 2.3 mg/dL (1.80-2.40); PHOSPHORUS 5.7 mg/dL (2.5-4.9); POTASSIUM 4.7 mmol/L (3.5-5.1)
[2019-09-02] MEDS: ASPIRIN 81MG TAB.CHEW PO SCH (09:00)
--- NOTE | 2019-09-02 09:04 | NUR ---
GAVINO JORGENSEN Sw familiar with pt and her issues with renewing VISA in order to qualify for outpt dialysis. Pt states this process must be done in person and with all of the Coronavirus restrictions she nor family have been able to do this.Heber Nunn with [facility] Jorgensen has been trying to help pt with this matter. Gavino Jorgensen made aware that pt is back in the hospital and will follow up with pt. Sw to follow and assist as needed
--- NOTE | 2019-09-02 13:55 | NUR ---
DC PLAN PREVIOUS ADMISSION: PATIENT SEEN AT BEDSIDE, CHART REVIEWED FROM PREVIOUS ADMITS- EXCERPT FROM [employer] NOTES BELOW FROOM PREVIOUS ADMISSION- ASKED PATIENT IF ANY CHANGES, DENIED Patient lives with spouse. Emergency contacts are sons, Francisco Scruggs, and Roque Scruggs, . Patient is able to complete ADL's independently but does not drive. Family helps with transportation. PCP is Dr. Ann. Pharmacy is [facility] located on [facility] in [place]. DCP is home Patient was having dialysis at [facility] in [place] but had to stop going due to Legal Resident card. Outpatient dialysis arrangements were attempted during one of patients last admissions with [facility], but patient was not approved due to not being able to provide proof of updated residency. Patient continues to come to ER for dialysis as needed. FOOT SETTER AND HELP MARYBETH AWARE. DR. ANN CALLED SAID PATIENT TOLD HIM [facility] WAS WILLING TO TAKE HER NOT SURE WHICH CLINIC IN [place]. ASKED FOR US TO SEND INFO AND FOLLOW UP. Addendum: 09/02/19 at 1358 by GRISEL AVENDANO RN CM Amended: Links added.
--- NOTE | 2019-09-02 15:48 | NUR ---
DE Plan Patient completed HD in room. States lives with spouse Roque, but does not recall phone number. Denies having any DME, HH, or provider. Patient became nauseous during interview with yellow colored emesis noted to basin. Informed patient CM will come back at a later time. Notified bedside nurse Gaston that patient was currently vomiting. Gaston jean will go see patient. CD Addendum: 09/02/19 at 1633 by MARY TOTH CM Amended: Links added.
[2019-09-02] MEDS: ONDANSETRON HCL 4 MG/2 ML VIAL IVP PRN ×2 (16:01→21:38)
--- NOTE | 2019-09-02 16:15 | NUR ---
[facility] consult Patient assessed as ordered. [facility] recommendations submitted. Addendum: 09/03/19 at 0841 by NAS PHILIP RN/ Amended: Links added.
--- NOTE | 2019-09-02 17:15 | NUR ---
RECEIVED PT FROM [facility] BY WHEELCHAIR. PT V/S STABLE, A/A X3, ON ROOM AIR, IV TO THE RT. AC IS SL FLUSHED AND PATENT. LUNGS CLEAR.
[2019-09-03 00:02] VITALS: BP 138/68
[2019-09-03 04:02] LABS: BASOPHILS % (AUTO) 0.5 % (0.0-5.0); EOSINOPHILS % (AUTO) 0.5 % (0.0-8.0); HEMATOCRIT 27.6 % (36-48); LYMPHOCYTES % (AUTO) 7.2 % (21.0-51.0); MEAN CORPUSCULAR HEMOGLOBIN 26.7 pg (27.0-33.0); MEAN CORPUSCULAR HGB CONC 30.1 g/dL (32.0-36.0); MEAN CORPUSCULAR VOLUME 88.7 fL (79-99); MONOCYTES % (AUTO) 7.2 % (3.0-13.0); NEUTROPHILS % (AUTO) 84.2 % (40.0-77.0); PLATELET COUNT (AUTO) 281 K/uL (130-400); RED BLOOD CELL COUNT(AUTO) 3.11 MIL/uL (4.00-5.50); RED CELL DISTRIBUTION WIDTH 16.6 % (11.0-15.5)
[2019-09-03 04:04] VITALS: BP 141/71
[2019-09-03 04:12] LABS: CREATININE 4.9 mg/dL (0.5-1.5); MAGNESIUM 2.3 mg/dL (1.80-2.40); PHOSPHORUS 6.9 mg/dL (2.5-4.9); POTASSIUM 4.1 mmol/L (3.5-5.1)
[2019-09-03 07:40] VITALS: BP 155/64
[2019-09-03] MEDS: ASPIRIN 81MG TAB.CHEW PO SCH (09:31)
[2019-09-03] MEDS: AMLODIPINE BESYLATE 5 MG TAB PO SCH ×2 (09:31→21:47)
[2019-09-03] MEDS: LABETALOL HCL 100 MG TABLET PO SCH ×2 (09:31→21:47)
[2019-09-03 11:37] VITALS: BP 149/68
[2019-09-03 16:00] VITALS: BP 145/68
--- NOTE | 2019-09-03 16:00 | NUR ---
SPOKE TO PT AND MD ABOUT PT REQUEST FOR REFERRAL RIKI OBTAINED FROM PATIENT FOR RECORDS FROM [facility] FOR 2077 FORM AND OTHER INFO PERTAINING TO DIALYSIS, RIKI/CHOICE LETTER FOR [facility] MATE[facility] ANTONIO PATIENT STATES THAT ROSY PARRA AT [facility] TOLD HER DAUGHTER TO HAVE PATIENT COME AND APPLY AT THEIR CLINIC TO SEE IF THEY CAN HELP HER WITH HER PAPER WORK TO START HD AGAIN. SOUNDED ODD CALL TO AIDA GALLEGOS AT [facility] WAS ADVISED 'MAY HAVE BEEN THE OTHER ROSY DIRECTOR [employer]'; ADVISED TO GO THROUGH [facility] ADMISSION, BUT AT FAR SHE KNOWS ELIGIBILITY IS ELIGIBILITY AND EVERY THING IS VERY MUCH BY PROTOCOL. SPOKE TO SETH RAYMUNDO IN [facility], HE STATES THAT PATIENT ADVISED HIM A AIDA GALLEGOS TOLD HER SHE MIGHT BE ABLE TO HELP HER GET STARTED AGAIN ON HD.. DR. ANN STATES THAT IT IS ESPECIALLY IMPORTANT WHEN SENDING THIS REFERRAL TO [facility]ISE [facility] THAT THE REFERRAL COMES FROM THE PATIENTS WISHES BASED ON WHAT SHE WAS TOLD, REFERRAL IS NOT FROM DR. ANN, PLEASE MAKE NOTE OF THAT. WENT TO SPEAK TO PATIENT IN ROOM, SHE STATES SHE WANTS TO LEAVE AAKASH GALLO ITS FATHERS DAY AND HOW OLONG WILL THE REFERRAL TAKE? ADVISED PATIENT MAY TAKE SEVERAL DAYS. Addendum: 09/03/19 at 1748 by MAUREEN PRETTY RN CM Amended: Links added.
[2019-09-03 20:07] VITALS: BP 163/61
[2019-09-03] MEDS: EPOETIN ALFA 10,000 UNIT/ML VIAL IV SCH (21:47)
--- NOTE | 2019-09-03 22:30 | NUR ---
WOUND CARE PROVIDED TO RIGHT HEEL PER WOUND CARE RECOMMENDATIONS. PT EDWIN WC TX WELL, NO DISTRESS NOTED.
[2019-09-04 00:07] VITALS: BP 126/51
[2019-09-04 04:00] VITALS: BP 152/67
[2019-09-04 05:53] LABS: CREATININE 7.1 mg/dL (0.5-1.5); POTASSIUM 4.3 mmol/L (3.5-5.1)
[2019-09-04 07:29] LABS: BASOPHILS % (AUTO) 0.5 % (0.0-5.0); EOSINOPHILS % (AUTO) 2.4 % (0.0-8.0); HEMATOCRIT 24.4 % (36-48); LYMPHOCYTES % (AUTO) 9.4 % (21.0-51.0); MEAN CORPUSCULAR HEMOGLOBIN 26.7 pg (27.0-33.0); MEAN CORPUSCULAR HGB CONC 29.9 g/dL (32.0-36.0); MEAN CORPUSCULAR VOLUME 89.4 fL (79-99); MONOCYTES % (AUTO) 9.3 % (3.0-13.0); NEUTROPHILS % (AUTO) 77.9 % (40.0-77.0); PLATELET COUNT (AUTO) 264 K/uL (130-400); RED BLOOD CELL COUNT(AUTO) 2.73 MIL/uL (4.00-5.50); RED CELL DISTRIBUTION WIDTH 16.5 % (11.0-15.5); WHITE BLOOD COUNT (AUTO) 9.8 K/uL (4.8-10.8)
[2019-09-04 08:00] VITALS: BP 172/64
[2019-09-04 12:00] VITALS: BP 139/65
[2019-09-04] MEDS: ASPIRIN 81MG TAB.CHEW PO SCH (13:00)
--- NOTE | 2019-09-04 13:00 | NUR ---
NELIDA pt requesting to leave against medical advise ,discussed she needed to have dialysis chair ,the social security assessor working on scheduling her ,pt does not want to stay ,knows the risk of leaving AMA Addendum: 09/04/19 at 1406 by EILEEN NGO RN RN Amended: Links added.
[2019-09-04] MEDS: LABETALOL HCL 100 MG TABLET PO SCH (13:36)
[2019-09-04] MEDS: AMLODIPINE BESYLATE 5 MG TAB PO SCH (13:37)
[2019-09-04] MEDS: EPOETIN ALFA 10,000 UNIT/ML VIAL IV SCH (13:38)
[2019-09-05] MEDS ORDERED: ASPIRIN 81 MG EC TAB PO SCH (09:00)
== END 2019-09-04 16:30 | disposition left against medical advice (07) | DRG 189 ==
LOC: EDH 11:41 → EDHIP 16:52 → 2BH 19:06 → 2CH 09-02 06:24 → 3BH 09-02 17:25
PROVIDERS: ADMIT Internal Medicine; ATTEND Internal Medicine
PROC: 5A1D70Z Performance of Urinary Filtration, Intermittent, Less than 6 Hours Per Day (ICD-10-PCS; principal; 2019-09-01)
PROC: 5A1D70Z Performance of Urinary Filtration, Intermittent, Less than 6 Hours Per Day (ICD-10-PCS; 2019-09-02)
PROC: 5A1D70Z Performance of Urinary Filtration, Intermittent, Less than 6 Hours Per Day (ICD-10-PCS; 2019-09-04)
DX: J96.01 Acute respiratory failure with hypoxia (principal); N18.6 End stage renal disease; N17.9 Acute kidney failure, unspecified; J81.1 Chronic pulmonary edema; J90 Pleural effusion, not elsewhere classified; L97.419 Non-pressure chronic ulcer of right heel and midfoot with unspecified severity; I12.0 Hypertensive chronic kidney disease with stage 5 chronic kidney disease or end stage renal disease; E87.2 Acidosis; E87.5 Hyperkalemia; I16.0 Hypertensive urgency; E11.22 Type 2 diabetes mellitus with diabetic chronic kidney disease; D63.1 Anemia in chronic kidney disease; D72.829 Elevated white blood cell count, unspecified; E83.41 Hypermagnesemia; E83.39 Other disorders of phosphorus metabolism; E11.51 Type 2 diabetes mellitus with diabetic peripheral angiopathy without gangrene; E11.621 Type 2 diabetes mellitus with foot ulcer; Z99.2 Dependence on renal dialysis; Z91.14 Patient's other noncompliance with medication regimen; Z82.3 Family history of stroke; Z83.3 Family history of diabetes mellitus; Z84.1 Family history of disorders of kidney and ureter; Z82.49 Family history of ischemic heart disease and other diseases of the circulatory system
CPT/HCPCS: 36415; 71045; 80048; 80053; 82948; 83540; 83550; 83735; 84100; 84132; 85025; 86156; 86850; 86870; 86900; 86901; 90935; 93005; 94640; G0378; J0360; J0610; J0885; J1815; J2405; J3490; J7060